=== PATIENT | male | born 1965 | race Caucasian/White ===

== ENCOUNTER 2019-07-24 15:09 | Inpatient (IN) | payer OTHER ==
--- NOTE | 2019-07-24 15:23 | PDOC ---
Rapid Medical Evaluation Chief Complaint: Chest Pain Time Seen by Provider: 07/24/19 15:16 Medical Evaluation: 07/24/19 15:19 Pt presents to ED: weak, sob, and cold, also with chest pressure, recent NM 2 weeks ago and aslo began HD after NM, hx anemia, denies bleeding in urine /stool , Received call from PMD and h/h 6.7 Pt on brief exam: pale appearing, vss Pt ordered for: labs, ekg, cxr, iv, cardiac monitoring Pt proceed to the ED Discharge Disposition - Diagnosis Weak - Referrals - Patient Instructions - Post Discharge Activity
--- NOTE | 2019-07-24 15:33 | PDOC ---
History of Present Illness - General Chief Complaint: Chest Pain Stated Complaint: CHEST PAIN, LOW H/H, DIALYSIS PT Time Seen by Provider: 07/24/19 15:16 History Source: Patient - History of Present Illness Initial Comments: 07/24/19 17:14 Mr. Woods is a 53M with hx T1DM, CKD on MWF dialysis, bilateral LE neuropathy , diabetic gastroparesis, recent hospitalization for ACS from 07/12-07/19/2019 presenting today with acute onset chest pain that began this morning, as well as referral from PCP Dr. Melchor after outpatient Hg resulted at 6.7. He reports that he recently moved from [place] and has been in the process of establishing medical care in the area. He reports that he recently started MWF dialysis after his recent hospitalization, and had access for dialysis placed during that hospitalization. His last dialysis was two days ago. He is scheduled for dialysis today, but was unable to present for dialysis due to his ED visit. Additionally, reports chest pain that began this morning upon awakening. He describes the pain as stabbing, non-pleuritic, intermittent, with varying severity from 3-7. He denies any shortness of breath, headache, weakness , confusion, lightheadedness, vertigo. Past History - Past Medical History Allergies/Adverse Reactions: Allergies Allergy/AdvReac Type Severity Reaction Status Date / Time No Known Allergies Allergy Verified 07/24/19 15:22 Home Medications: Ambulatory Orders Amlodipine Besylate 10 mg PO DAILY 07/24/19 Aspirin 81 mg PO DAILY 07/24/19 Bumetanide 2 mg PO DAILY 07/24/19 Calcitriol [Calcitriol -] 0.25 mcg PO 07/24/19 Carvedilol 12.5 mg PO BID 07/24/19 Clopidogrel Bisulfate [Clopidogrel] 75 mg PO DAILY 07/24/19 Famotidine 20 mg PO DAILY 07/24/19 Folic Acid 1 mg PO DAILY 07/24/19 Gabapentin 100 mg PO DAILY 07/24/19 Gabapentin 300 mg PO HS 07/24/19 Insulin Aspart [Novolog] 10 unit SQ HS 07/24/19 Insulin Regular, Human [Humulin R U-500 Kwikpen] unit SQ TID 07/24/19 Sodium Bicarbonate - 1,950 mg PO TID 07/24/19 Valsartan 160 mg PO DAILY 07/24/19 Anemia: Yes COPD: No CHF: No Diabetes: Yes (type 1) Dialysis: Yes (started 06/29) HTN: (Orthostatic hypotension) - Surgical History Abdominal Surgery: (right chest shiley) - Psycho Social/Smoking Cessation Hx Smoking History: Never smoked Information on smoking cessation initiated: No Hx Alcohol Use: No Drug/Substance Use Hx: No Review of Systems - Review of Systems Able to Perform ROS?: Yes Comments:: 07/25/19 07:49 ROS: GENERAL/CONSTITUTIONAL: No fever or chills. No weakness. HEAD, EYES, EARS, NOSE AND THROAT: No change in vision. No ear pain or discharge. No sore throat. CARDIOVASCULAR: Chest pain. No shortness of breath RESPIRATORY: No cough, wheezing, or hemoptysis. GASTROINTESTINAL: No nausea, vomiting, diarrhea or constipation. GENITOURINARY: No dysuria, frequency, or change in urination. MUSCULOSKELETAL: No joint or muscle swelling or pain. No neck or back pain. SKIN: No rash NEUROLOGIC: No headache, vertigo, loss of consciousness, or change in strength/ sensation. ENDOCRINE: No increased thirst. No abnormal weight change HEMATOLOGIC/LYMPHATIC: No anemia, easy bleeding, or history of blood clots. ALLERGIC/IMMUNOLOGIC: No hives or skin allergy. *Physical Exam - Vital Signs Last Vital Signs Temp Pulse Resp BP Pulse Ox 97.5 F L 79 19 156/86 97 07/24/19 15:18 07/24/19 15:18 07/24/19 15:18 07/24/19 15:18 07/24/19 15:18 - Physical Exam Comments: 07/25/19 07:48 PE: GENERAL: Pale. Awake, alert, and fully oriented, in no acute distress HEAD: No signs of trauma, normocephalic, atraumatic EYES: PERRLA, EOMI, sclera anicteric, conjunctiva clear ENT: Auricles normal inspection, hearing grossly normal, nares patent, oropharynx clear without exudates. Moist mucosa NECK: Normal ROM, supple, no lymphadenopathy, JVD, or masses LUNGS: No distress, speaks full sentences, clear to auscultation bilaterally HEART: Regular rate and rhythm, normal S1 and S2, no murmurs, rubs or gallops, peripheral pulses normal and equal bilaterally. ABDOMEN: Soft, nontender, normoactive bowel sounds. No guarding, no rebound. No masses EXTREMITIES : Normal inspection, Normal range of motion, no edema. No clubbing or cyanosis NEUROLOGICAL: Cranial nerves II through XII grossly intact. Normal speech, normal gait, no focal sensorimotor deficits SKIN: Warm, Dry, normal turgor, no rashes or lesions noted ED Treatment Course - LABORATORY CBC & Chemistry Diagram: 07/24/19 15:55 07/24/19 15:55 Medical Decision Making - Medical Decision Making 07/24/19 16:42 53M with hx T1DM, recent admission for ACS from 07/12-07/19/19 (no cardiac stenting at that time) p/w acute onset chest pain this AM, as well as referral from PCP Dr. Melchor after Hg found to be 6.7 during routine labs. Presentation likely representing anemia secondary to CKD. Cannot rule out ACS, type II NSTEMI at this time. Scheduled for MWF dialysis, unable to attend today due to presentation to hospital. Plan: CBC CMP EKG CXR Cardiac Profile PT/INR PTT ASA 325 mg POC glucose Dispo: Admit --- Case discussed with Dr. Dickens (Nephrology). Plan for dialysis tomorrow after hospital admission (likely not candidate for dialysis at this time with active chest pain). --- Hg - 9.5, no indication for emergent transfusion at this time --- Case discussed with CM Gomez, patient admitted to Dr. Melchor. Discharge - Discharge Information Problems reviewed: Yes Clinical Impression/Diagnosis: Weak Condition: Stable - Admission Yes - Follow up/Referral - Patient Discharge Instructions - Post Discharge Activity
[2019-07-24 16:15] LABS: BASO % 0.9 % (0-2.0); EOS % 1.9 % (0-4.5); HEMOGLOBIN 9.5 GM/dL (11.7-16.9); LYMPH % 5.8 % (8-40); MCH 30.3 pg (25.7-33.7); MCHC 32.9 g/dl (32.0-35.9); MEAN CELL VOLUME 92.2 fl (80-96); MEAN PLT VOLUME 7.8 fl (7.5-11.1); MONO % 10.2 % (3.8-10.2); NEUT % 81.2 % (42.8-82.8); PLATELET COUNT 269 K/MM3 (134-434); RBC 3.15 M/mm3 (4.00-5.60); RDW 14.2 % (11.9-15.9); WHITE BLOOD COUNT 5.3 K/mm3 (4.0-10.0)
--- NOTE | 2019-07-24 16:35 | PDOC ---
Attending Attestation - Resident Resident Name: Greg Henriquez - ED Attending Attestation I have performed the following: I have examined & evaluated the patient, The case was reviewed & discussed with the resident, I agree w/resident's findings & plan, Exceptions are as noted - HPI HPI: 07/24/19 16:32 53-year-old male history of end-stage renal disease diabetes recent [place] admitted a [facility] here today complaining of chest pain. Patient was scheduled to see Dr. Knight today for dialysis today however he was told that his hemoglobin was low was sent to the ED instead. Patient is describing chest pain denies feeling short of breath has had chronic lower extremity edema states he has a history of orthostatic hypotension denies any diaphoresis no fevers no chills no history of PE or DVT in the past - Physicial Exam PE: 07/24/19 16:33 awake alert no acute distress lungs are clear bilaterally heart is regular without murmurs rubs or gallops abdomen is soft and nontender extremities are warm well perfused the right anterior chest wall has a right tunneled catheter no surrounding erythema or redness 2+ symmetric pulses patient is awake alert and oriented x3 - Medical Decision Making 07/24/19 16:34 [id number] male diabetes CAD recent IN here with anemia and chest. Differential includes pericardial effusion symptomatic anemia GI bleed however more likely anemia of chronic disease due to renal failure plan we will discuss with Dr. Manriquez for admission patient is not currently fluid overloaded will likely be dialyzed tomorrow focused ED ultrasound was performed no pericardial effusion patient has overall preserved contractility no RV strain or dilation labs are pending patient signed out to oncoming physician pending further lab evaluation will likely be admitted to telemetry Heart Score/ECG Review #1 General ECG Interpretation: Sinus Rhythm, Normal Rate (83), Normal Intervals, No acute ischemic changes
[2019-07-24] MEDS ORDERED: ASPIRIN 325 MG TABLET PO ONE (16:41)
[2019-07-24 16:44] LABS: BILIRUBIN,TOTAL 0.2 mg/dL (0.2-1); BLOOD UREA NITROGEN 56.1 mg/dL (7-18); CREATININE 4.2 mg/dL (0.55-1.3); MAGNESIUM 2.6 mg/dL (1.8-2.4); POTASSIUM 5.2 mmol/L (3.5-5.1); TOT PROT 5.7 g/dl (6.4-8.2)
[2019-07-24] MEDS ORDERED: ASPIRIN 325 MG ENTERIC COATED TABLET (FP) ONE (16:54)
[2019-07-24 17:38] LABS: INR 0.97 (0.83-1.09); PROTHROMBIN TIME (PATIENT) 11.4 SEC (9.7-13.0)
[2019-07-24 18:39] LABS: EPI CELLS 1.1 /HPF (0-5/HPF); HYALINE CASTS 1 /lpf (0-8); URINE APPEARANCE CLEAR; URINE BACTERIA 0.3 /hpf (NEGATIVE); URINE BILIRUBIN NEGATIVE (NEGATIVE); URINE COLOR DK YELLOW; URINE GLUCOSE (UA) 2+ (NEGATIVE); URINE KETONE NEGATIVE (NEGATIVE); URINE LEUK ESTERASE NEGATIVE (NEGATIVE); URINE NITRITE NEGATIVE (NEGATIVE); URINE PROTEIN 3+ (NEGATIVE); URINE RBC 1 /hpf (0-4); URINE UROBILINOGEN 0.2 mg/dL (0.2-1.0); URINE WBC 1 /hpf (0-5)
[2019-07-24] MEDS: INSULIN SLIDING SCALE (NOVOLOG) 1 VIAL SQ SCH ×2 (20:30→22:22)
[2019-07-24] MEDS: GABAPENTIN 300 MG CAPSULE (FP) PO SCH (22:11)
[2019-07-24] MEDS: SODIUM BICARBONATE 650 MG TABLET PO SCH (22:11)
[2019-07-24] MEDS: CARVEDILOL 12.5 MG TABLET (FP) PO SCH (22:12)
[2019-07-24] MEDS: HEPARIN NA (PORCINE) 5,000 UNITS/ML 1ML VIAL SQ SCH (22:12)
[2019-07-25] MEDS: INSULIN SLIDING SCALE (NOVOLOG) 1 VIAL SQ SCH ×4 (06:08→21:42)
[2019-07-25] MEDS: SODIUM BICARBONATE 650 MG TABLET PO SCH (06:09)
[2019-07-25 08:09] LABS: BASO % 2.3 % (0-2.0); EOS % 6.9 % (0-4.5); HEMATOCRIT 22.5 % (35.4-49); HEMOGLOBIN 7.6 GM/dL (11.7-16.9); LYMPH % 15.7 % (8-40); MCH 30.8 pg (25.7-33.7); MCHC 33.8 g/dl (32.0-35.9); MEAN CELL VOLUME 91.1 fl (80-96); MEAN PLT VOLUME 8.3 fl (7.5-11.1); MONO % 15.9 % (3.8-10.2); NEUT % 59.2 % (42.8-82.8); PLATELET COUNT 201 K/MM3 (134-434); RBC 2.47 M/mm3 (4.00-5.60); WHITE BLOOD COUNT 3.7 K/mm3 (4.0-10.0)
[2019-07-25 09:24] LABS: ALBUMIN 2.5 g/dl (3.4-5.0); BILIRUBIN,TOTAL 0.3 mg/dL (0.2-1); BLOOD UREA NITROGEN 54.7 mg/dL (7-18); CALCIUM 8.1 mg/dL (8.5-10.1); CREATININE 4.2 mg/dL (0.55-1.3); MAGNESIUM 2.4 mg/dL (1.8-2.4); PHOSPHOROUS 6.2 mg/dL (2.5-4.9); TOT PROT 4.7 g/dl (6.4-8.2)
[2019-07-25] MEDS: amLODIPine BESYLATE 10 MG TABLET (FP) PO SCH (10:03)
[2019-07-25] MEDS: FAMOTIDINE 20 MG TABLET PO SCH (10:04)
[2019-07-25] MEDS: CLOPIDOGREL BISULFATE 75 MG TABLET (FP) PO SCH (10:04)
[2019-07-25] MEDS: ASPIRIN 81 MG CHEWABLE TABLETS PO SCH (10:04)
[2019-07-25] MEDS: FOLIC ACID 1 MG TABLET (FP) PO SCH (10:04)
[2019-07-25] MEDS: GABAPENTIN 100 MG CAPSULE (FP) PO SCH (10:04)
[2019-07-25] MEDS: VALSARTAN 160 MG TABLET (UD) PO SCH (10:04)
[2019-07-25] MEDS: HEPARIN NA (PORCINE) 5,000 UNITS/ML 1ML VIAL SQ SCH ×2 (10:04→21:34)
[2019-07-25] MEDS: CARVEDILOL 12.5 MG TABLET (FP) PO SCH ×2 (10:04→21:32)
--- NOTE | 2019-07-25 11:42 | CONSULT ---
Consult Consult Specialty:: Nephrology Reason for Consultation:: ESRD - History of Present Illness Chief Complaint: sent in for anemia and chest pain History of Present Illness: Pt is a 53 year old male with pmhx of esrd, anemia, and dm who was sent in for anemia. He was found to have a hg of about 7. He has ESRD and is on a MWF schedule. His last HD was on Monday. He is moving to [place] and is transitioning his care to here. He had an appointment with me yesterday however cancelled and came to ER. He says that the chest pain is resolved. He does not have a fistula. - History Source History Provided By: Patient, Medical Record - Past Medical History Cardio/Vascular: Yes: HTN Renal/: Yes: Renal Failure, Hemodialysis Endocrine: Yes: Diabetes Mellitus - Alcohol/Substance Use Hx Alcohol Use: No - Smoking History Smoking history: Never smoked Home Medications - Allergies Allergies/Adverse Reactions: Allergies Allergy/AdvReac Type Severity Reaction Status Date / Time No Known Allergies Allergy Verified 07/24/19 15:22 - Home Medications Home Medications: Ambulatory Orders Amlodipine Besylate 10 mg PO DAILY 07/24/19 Aspirin 81 mg PO DAILY 07/24/19 Bumetanide 2 mg PO DAILY 07/24/19 Calcitriol [Calcitriol -] 0.25 mcg PO 07/24/19 Carvedilol 12.5 mg PO BID 07/24/19 Clopidogrel Bisulfate [Clopidogrel] 75 mg PO DAILY 07/24/19 Famotidine 20 mg PO DAILY 07/24/19 Folic Acid 1 mg PO DAILY 07/24/19 Gabapentin 100 mg PO DAILY 07/24/19 Gabapentin 300 mg PO HS 07/24/19 Insulin Aspart [Novolog] 10 unit SQ HS 07/24/19 Insulin Regular, Human [Humulin R U-500 Kwikpen] unit SQ TID 07/24/19 Sodium Bicarbonate - 1,950 mg PO TID 07/24/19 Valsartan 160 mg PO DAILY 07/24/19 Family Medical History Family History: Denies Review of Systems - Review of Systems Constitutional: reports: No Symptoms Eyes: reports: No Symptoms HENT: reports: No Symptoms Neck: reports: No Symptoms Cardiovascular: reports: Chest Pain, Edema. denies: Shortness of Breath Respiratory: reports: No Symptoms Gastrointestinal: reports: No Symptoms Genitourinary: reports: No Symptoms Musculoskeletal: reports: No Symptoms Integumentary: reports: No Symptoms Neurological: reports: No Symptoms Endocrine: reports: No Symptoms Hematology/Lymphatic: reports: No Symptoms Psychiatric: reports: No Symptoms Physical Exam Vital Signs: Vital Signs Temperature 98.2 F 07/25/19 05:00 Pulse Rate 75 07/25/19 05:00 Respiratory Rate 18 07/25/19 05:00 Blood Pressure 163/85 07/25/19 05:00 O2 Sat by Pulse Oximetry (%) 96 07/24/19 23:00 Constitutional: Yes: Calm Eyes: Yes: Conjunctiva Clear HENT: Yes: Atraumatic Neck: Yes: Supple Cardiovascular: Yes: S1, S2 Respiratory: Yes: CTA Bilaterally Gastrointestinal: Yes: Soft Renal/: Yes: WNL Edema: Yes Edema: LLE: 2+, RLE: 2+ Neurological: Yes: Oriented Psychiatric: Yes: Oriented Labs: CBC, BMP 07/25/19 05:50 07/25/19 05:50 Laboratory Tests 07/24/19 07/25/19 15:55 05:50 Hgb 9.5 L 7.6 L Imaging - Results Chest X-ray: Report Reviewed Problem List - Problems (1) ESRD (end stage renal disease) Code(s): N18.6 - END STAGE RENAL DISEASE (2) Anemia Code(s): D64.9 - ANEMIA, UNSPECIFIED (3) Diabetes mellitus Code(s): E11.9 - TYPE 2 DIABETES MELLITUS WITHOUT COMPLICATIONS (4) HTN (hypertension) Code(s): I10 - ESSENTIAL (PRIMARY) HYPERTENSION Assessment/Plan Current Medications Generic Name Dose Route Start Last Admin Trade Name Jairo PRN Reason Stop Dose Admin Amlodipine Besylate 10 mg 07/25/19 10:00 07/25/19 10:03 Norvasc - PO 10 mg DAILY ELIZA Administration Aspirin 81 mg 07/25/19 10:00 07/25/19 10:04 Asa - PO 81 mg DAILY ELIZA Administration Carvedilol 12.5 mg 07/24/19 22:00 07/25/19 10:04 Coreg - PO 12.5 mg BID ELIZA Administration Clopidogrel Bisulfate 75 mg 07/25/19 10:00 07/25/19 10:04 Plavix - PO 75 mg DAILY ELIZA Administration Famotidine 20 mg 07/25/19 10:00 07/25/19 10:04 Pepcid - PO 20 mg DAILY ELIZA Administration Folic Acid 1 mg 07/25/19 10:00 07/25/19 10:04 Folic Acid - PO 1 mg DAILY ELIZA Administration Gabapentin 100 mg 07/25/19 10:00 07/25/19 10:04 Neurontin - PO 100 mg DAILY EILZA Administration Gabapentin 300 mg 07/24/19 22:00 07/24/19 22:11 Neurontin - PO 300 mg HS ELIZA Administration Heparin Sodium (Porcine) 5,000 unit 07/24/19 22:00 07/25/19 10:04 Heparin - SQ 5,000 unit BID ELIZA Administration Sodium Chloride 250 mls @ 3,000 mls/hr 07/25/19 11:40 Normal Saline - IV 07/26/19 11:40 PRN PRN Hypotension during Dialysis Insulin Aspart 1 vial 07/24/19 22:00 07/25/19 06:08 Novolog Vial Sliding Scale - SQ Not Given ACHS ELIZA Protocol Sodium Bicarbonate 1,950 mg 07/24/19 22:00 07/25/19 06:09 Sodium Bicarbonate - PO 1,950 mg TID ELIZA Administration Valsartan 160 mg 07/25/19 10:00 07/25/19 10:04 Diovan - PO 160 mg DAILY ELIZA Administration Impression 1. ESRD 2. anemia 3. chest pain 4. htn 5. dm 6. hyperkalemia Plan - will arrange for HD today - will give unit fo blood - discussed epogen therapy however he wants to think about it - renal diet - d/c po bicarb
--- NOTE | 2019-07-25 12:39 | EKG ---
Test Reason : Blood Pressure : / mmHG Vent. Rate : 083 BPM Atrial Rate : 083 BPM P-R Int : 170 ms QRS Dur : 098 ms QT Int : 402 ms P-R-T Axes : 068 044 038 degrees QTc Int : 472 ms NORMAL SINUS RHYTHM POSSIBLE LEFT ATRIAL ENLARGEMENT BORDERLINE ECG NO PREVIOUS ECGS AVAILABLE Confirmed by HONEY WATKINS, THONG ([id number]) on 07/25/2019 12:39:16 PM Referred By: Confirmed By:THONG MÉNDEZ MD
--- NOTE | 2019-07-25 13:57 | CON.CARD ---
Consult Consult Specialty:: Cardiology Referred by:: Jill Reason for Consultation:: chest pain - History of Present Illness Chief Complaint: Chest pain History of Present Illness: The patient is a 53-year-old man type 1 diabetes, hypertension, end-stage renal disease on hemodialysis (recently began),coronary artery disease and myocardial infarction (no cardiac catheterization due torenalfailure0, now presenting with recurrent chest pains, fluid overload, and severe anemia. The patient is currently comfortable and symptom free. No evidence of ischemia nor acute coronary syndrome. the ECG shows sinus rhythm with an old septal infarct and left atrial enlargement with nonspecific ST-T changes. - History Source History Provided By: Patient Limitations to Obtaining History: No Limitations - Past Medical History Cardio/Vascular: Yes: CAD, HTN, [place] Renal/: Yes: Renal Failure, Hemodialysis Endocrine: Yes: Diabetes Mellitus - Alcohol/Substance Use Hx Alcohol Use: No - Smoking History Smoking history: Never smoked Home Medications - Allergies Allergies/Adverse Reactions: Allergies Allergy/AdvReac Type Severity Reaction Status Date / Time No Known Allergies Allergy Verified 07/24/19 15:22 - Home Medications Home Medications: Ambulatory Orders Amlodipine Besylate 10 mg PO DAILY 07/24/19 Aspirin 81 mg PO DAILY 07/24/19 Bumetanide 2 mg PO DAILY 07/24/19 Calcitriol [Calcitriol -] 0.25 mcg PO 07/24/19 Carvedilol 12.5 mg PO BID 07/24/19 Clopidogrel Bisulfate [Clopidogrel] 75 mg PO DAILY 07/24/19 Famotidine 20 mg PO DAILY 07/24/19 Folic Acid 1 mg PO DAILY 07/24/19 Gabapentin 100 mg PO DAILY 07/24/19 Gabapentin 300 mg PO HS 07/24/19 Insulin Aspart [Novolog] 10 unit SQ HS 07/24/19 Insulin Regular, Human [Humulin R U-500 Kwikpen] unit SQ TID 07/24/19 Sodium Bicarbonate - 1,950 mg PO TID 07/24/19 Valsartan 160 mg PO DAILY 07/24/19 Review of Systems - Review of Systems Constitutional: reports: No Symptoms Eyes: reports: No Symptoms HENT: reports: No Symptoms Neck: reports: No Symptoms Cardiovascular: reports: Chest Pain, Edema Respiratory: reports: No Symptoms Gastrointestinal: reports: No Symptoms Genitourinary: reports: No Symptoms Breasts: reports: No Symptoms Reported Musculoskeletal: reports: No Symptoms Integumentary: reports: No Symptoms Neurological: reports: No Symptoms Endocrine: reports: No Symptoms Hematology/Lymphatic: reports: No Symptoms Psychiatric: reports: No Symptoms Vital Signs: Vital Signs Temperature 98.2 F 07/25/19 05:00 Pulse Rate 75 07/25/19 05:00 Respiratory Rate 18 07/25/19 05:00 Blood Pressure 163/85 07/25/19 05:00 O2 Sat by Pulse Oximetry (%) 96 07/24/19 23:00 Constitutional: Yes: Well Nourished, No Distress, Calm Eyes: Yes: WNL, Conjunctiva Clear, EOM Intact HENT: Yes: WNL, Atraumatic, Normocephalic Neck: Yes: WNL, Supple, Trachea Midline Respiratory: Yes: WNL, Regular, CTA Bilaterally Gastrointestinal: Yes: WNL, Normal Bowel Sounds, Soft Renal/: Yes: Anuria Cardiovascular: Yes: WNL, Regular Rate and Rhythm JVD: No Carotid Bruit: No PMI: Non-Displaced Heart Sounds: Yes: S1, S2 Murmur: Yes: Systolic Murmur, Grade 2 Musculoskeletal: Yes: WNL Extremities: Yes: WNL Edema: Yes Edema: LLE: 1+, RLE: 1+ Peripheral Pulses: 1+ Left Carotid, 1+ Right Carotid, 1+ Left Femoral, 1+ Right Femoral, 1+ Left Popliteal, 1+ Right Popliteal, 1+ Left Doralis Pedis, 1+ Right Dorsalis Pedis Integumentary: Yes: WNL Neurological: Yes: WNL, Alert, Oriented ...Motor Strength: WNL Psychiatric: Yes: WNL, Alert, Oriented - Other Data Labs, Other Data: CBC, BMP 07/25/19 05:50 07/25/19 05:50 INR, PTT INR 0.97 (0.83-1.09) 07/24/19 15:55 Troponin, BNP 07/24/19 07/25/19 15:55 05:50 Troponin I 0.04 0.04 Troponin, BNP 07/24/19 07/25/19 15:55 05:50 Troponin I 0.04 0.04 Assessment/Plan The patient is a 53-year-old man type 1 diabetes, hypertension, end-stage renal disease on hemodialysis (recently began),coronary artery disease and myocardial infarction (no cardiac catheterization due torenalfailure0, now presenting with recurrent chest pains, fluid overload, and severe anemia. The patient is currently comfortable and symptom free. No evidence of ischemia nor acute coronary syndrome. the ECG shows sinus rhythm with an old septal infarct and left atrial enlargement with nonspecific ST-T changes. please continue fluid removal with hemodialysis. Renal diet. Continue current regimen for the time being. Please arrange for an echocardiogram. [facility]. The patient is stable.
--- NOTE | 2019-07-25 15:02 | HP ---
Admitting History and Physical - Admission Chief Complaint: chest pain History of Present Illness: Mr. Woods is a 53M with hx T1DM, CKD on MWF dialysis, bilateral LE neuropathy , diabetic gastroparesis, recent hospitalization for ACS from 07/12-07/19/2019 presenting today with acute onset chest pain that began this morning, as well as referral from PCP Dr. Melchor after outpatient Hg resulted at 6.7. He reports that he recently moved from [place] and has been in the process of establishing medical care in the area. He reports that he recently started MWF dialysis after his recent hospitalization, and had access for dialysis placed during that hospitalization. His last dialysis was two days ago. He is scheduled for dialysis today, but was unable to present for dialysis due to his ED visit. Additionally, reports chest pain that began this morning upon awakening. He describes the pain as stabbing, non-pleuritic, intermittent, with varying severity from 3-7. He denies any shortness of breath, headache, weakness , confusion, lightheadedness, vertigo. patient currently chest pain free History Source: Patient, Medical Record - Past Medical History Cardiovascular: Yes: CAD, HTN, [place] Renal/: Yes: Renal Failure, Hemodialysis Endocrine: Yes: Diabetes Mellitus - Advance Directives Advance Directives: Yes: DNR - Smoking History Smoking history: Never smoked - Alcohol/Substance Use Hx Alcohol Use: No Home Medications - Allergies Allergies/Adverse Reactions: Allergies Allergy/AdvReac Type Severity Reaction Status Date / Time No Known Allergies Allergy Verified 07/24/19 15:22 - Home Medications Home Medications: Ambulatory Orders Amlodipine Besylate 10 mg PO DAILY 07/24/19 Aspirin 81 mg PO DAILY 07/24/19 Bumetanide 2 mg PO DAILY 07/24/19 Calcitriol [Calcitriol -] 0.25 mcg PO 07/24/19 Carvedilol 12.5 mg PO BID 07/24/19 Clopidogrel Bisulfate [Clopidogrel] 75 mg PO DAILY 07/24/19 Famotidine 20 mg PO DAILY 07/24/19 Folic Acid 1 mg PO DAILY 07/24/19 Gabapentin 100 mg PO DAILY 07/24/19 Gabapentin 300 mg PO HS 07/24/19 Insulin Aspart [Novolog] 10 unit SQ HS 07/24/19 Insulin Regular, Human [Humulin R U-500 Kwikpen] unit SQ TID 07/24/19 Sodium Bicarbonate - 1,950 mg PO TID 07/24/19 Valsartan 160 mg PO DAILY 07/24/19 Review of Systems - Review of Systems Cardiovascular: reports: No Symptoms Respiratory: reports: No Symptoms Gastrointestinal: reports: No Symptoms Genitourinary: reports: No Symptoms Physical Examination Vital Signs: Vital Signs Temperature 98.2 F 07/25/19 05:00 Pulse Rate 75 07/25/19 05:00 Respiratory Rate 18 07/25/19 05:00 Blood Pressure 163/85 07/25/19 05:00 O2 Sat by Pulse Oximetry (%) 96 07/24/19 23:00 Constitutional: Yes: Calm Cardiovascular: Yes: Regular Rate and Rhythm, S1, S2 Respiratory: Yes: CTA Bilaterally Gastrointestinal: Yes: Normal Bowel Sounds, Soft Labs: CBC, BMP 07/25/19 05:50 07/25/19 05:50 Problem List - Problems (1) Anemia Assessment/Plan: got one unit with HD today repeat cbc in AM epogen once patient agree to it Code(s): D64.9 - ANEMIA, UNSPECIFIED (2) Diabetes mellitus Assessment/Plan: bgm sliding scale uncontrolled DM endocrine conosult willl need levemier Code(s): E11.9 - TYPE 2 DIABETES MELLITUS WITHOUT COMPLICATIONS (3) ESRD (end stage renal disease) Assessment/Plan: HD per renal Code(s): N18.6 - END STAGE RENAL DISEASE (4) HTN (hypertension) Assessment/Plan: coreg and norvasc Code(s): I10 - ESSENTIAL (PRIMARY) HYPERTENSION (5) Chest pain Assessment/Plan: to get echo today and cardiac cath next week at [facility] cardiology on board Code(s): R07.9 - CHEST PAIN, UNSPECIFIED
[2019-07-25] MEDS ORDERED: SODIUM CHLORIDE 250 ML IV PRN (16:03)
--- NOTE | 2019-07-25 16:11 | CONSULT ---
Consultation: REQUESTING PROVIDER: HEME/ONC Service CONSULT REQUEST: We have been asked to medically evaluate this patient for anemia. HISTORY OF PRESENT ILLNESS: Pt is a 53 y/o M with PMH DM I, CKD on MWF dialysis, bilateral LE neuropathy, diabetic gastroparesis, recent hospitalization for ACS from 07/12-07/19/2019 who presented to ED yesterday sent from PCP for low Hb of 6.2. Pt states that he was experiencing chest pain yesterday. He states that he had a repetitive stabbing chest pain, which was drammatically different in character from the pressure-like sensation he had when he had his heart attack several weeks ago. He states that at that time he was seen at a hospital in [place] where he could not undergo cardiac cath due to his deteriorating kidney function. He states that he was therefore treated medically and was put on dialysis. At this time he has no chest pain or pressure. Pt states he has a history of anemia. He states his Hb is usually around 8 or 9. 2 days ago, he had lab work done at his doctor's office. Yesterday, he was at the eye doctor and received a phone call stating his Hb was 6.2 and that he should come to the emergency department. Of note, in ED, initial Hb was 9.5 and f/u was 7.5. Denies gross bleeding or trauma of any kind. Denies dark/bloody stools or blood in urine. No rashes. REVIEW OF SYSTEMS: CONSTITUTIONAL: Absent: fever, chills, diaphoresis, generalized weakness, malaise, loss of appetite, weight change HEENT: Absent: rhinorrhea, nasal congestion, throat pain, throat swelling, difficulty swallowing, mouth swelling, ear pain, eye pain, visual changes CARDIOVASCULAR: chest pain, peripheral edema Absent: , syncope, palpitations, irregular heart rate, lightheadedness RESPIRATORY: Absent: cough, shortness of breath, dyspnea with exertion, orthopnea, wheezing, stridor, hemoptysis GASTROINTESTINAL: Absent: abdominal pain, abdominal distension, nausea, vomiting, diarrhea, constipation, melena, hematochezia GENITOURINARY: Absent: dysuria, frequency, urgency, hesitancy, hematuria, flank pain, genital pain MUSCULOSKELETAL: Absent: myalgia, arthralgia, joint swelling, back pain, neck pain SKIN: Absent: rash, itching, pallor HEMATOLOGIC/IMMUNOLOGIC: Absent: easy bleeding, easy bruising, lymphadenopathy, frequent infections ENDOCRINE: Absent: unexplained weight gain, unexplained weight loss, heat intolerance, cold intolerance NEUROLOGIC: Absent: headache, focal weakness or paresthesias, dizziness, unsteady gait, seizure, mental status changes, bladder or bowel incontinence PSYCHIATRIC: Absent: anxiety, depression, suicidal or homicidal ideation, hallucinations. PHYSICAL EXAMINATION Vital Signs - 24 hr 07/24/19 07/24/19 07/24/19 17:36 19:31 21:00 Temperature 97.9 F 97.9 F Pulse Rate 86 Pulse Rate [ 84 Apical] Respiratory 20 18 18 Rate Blood Pressure 184/107 H Blood Pressure 183/83 H [Left Arm] O2 Sat by Pulse 98 99 Oximetry (%) 07/24/19 07/24/19 07/25/19 21:12 23:00 01:00 Temperature 98.4 F 97.9 F Pulse Rate 81 89 Pulse Rate [ Apical] Respiratory 18 18 18 Rate Blood Pressure 161/80 148/66 Blood Pressure [Left Arm] O2 Sat by Pulse 96 Oximetry (%) 07/25/19 07/25/19 07/25/19 05:00 10:00 15:03 Temperature 98.2 F 98.3 F 98 F Pulse Rate 75 82 76 Pulse Rate [ Apical] Respiratory 18 18 16 Rate Blood Pressure 163/85 154/77 147/74 Blood Pressure [Left Arm] O2 Sat by Pulse 97 Oximetry (%) Gen: AAOx3, NAD HEENT: NCAT, EOMI Neck: supple, no jvd, no bruits Cardio: rrr, normal s1s2, no mrg Pulm: cta b/l Abd: soft, nontender, nondistended Ext: 2+ pitting edema Laboratory Results - last 24 hr 07/24/19 07/24/19 07/24/19 10:50 15:55 15:55 WBC RBC Hgb Hct MCV MCH MCHC RDW Plt Count MPV Absolute Neuts (auto) Neutrophils % Lymphocytes % Monocytes % Eosinophils % Basophils % Nucleated RBC % PT with INR INR PTT (Actin FS) Sodium Potassium Chloride Carbon Dioxide Anion Gap BUN Creatinine Est GFR (CKD-EPI)AfAm Est GFR (CKD-EPI)NonAf POC Glucometer Random Glucose Hemoglobin A1c % Calcium Phosphorus Magnesium Total Bilirubin AST ALT Alkaline Phosphatase Creatine Kinase 141 Troponin I 0.04 Total Protein Albumin Triglycerides Cholesterol Total LDL Cholesterol HDL Cholesterol Urine Color Urine Appearance Urine pH Ur Specific [place] Urine Protein Urine Glucose (UA) Urine Ketones Urine Blood Urine Nitrite Urine Bilirubin Urine Urobilinogen Ur Leukocyte Esterase Urine WBC (Auto) Urine RBC (Auto) Urine Casts (Auto) U Epithel Cells (Auto) Urine Bacteria (Auto) Stool Occult Blood Negative Blood Type O POSITIVE Antibody Screen Negative Crossmatch See Detail 07/24/19 07/24/19 07/24/19 15:55 15:55 15:55 WBC 5.3 RBC 3.15 L Hgb 9.5 L Hct 29.0 L MCV 92.2 MCH 30.3 MCHC 32.9 RDW 14.2 Plt Count 269 MPV 7.8 Absolute Neuts (auto) 4.3 Neutrophils % 81.2 Lymphocytes % 5.8 L Monocytes % 10.2 Eosinophils % 1.9 Basophils % 0.9 Nucleated RBC % 0 PT with INR 11.40 INR 0.97 PTT (Actin FS) 37.0 H Sodium 137 Potassium 5.2 H Chloride 99 Carbon Dioxide 32 Anion Gap 6 L BUN 56.1 H Creatinine 4.2 H Est GFR (CKD-EPI)AfAm 17.25 Est GFR (CKD-EPI)NonAf 14.88 POC Glucometer Random Glucose 234 H Hemoglobin A1c % Calcium 9.0 Phosphorus Magnesium 2.6 H Total Bilirubin 0.2 AST 26 ALT 28 Alkaline Phosphatase 71 Creatine Kinase Troponin I Total Protein 5.7 L Albumin 3.0 L Triglycerides Cholesterol Total LDL Cholesterol HDL Cholesterol Urine Color Urine Appearance Urine pH Ur Specific [place] Urine Protein Urine Glucose (UA) Urine Ketones Urine Blood Urine Nitrite Urine Bilirubin Urine Urobilinogen Ur Leukocyte Esterase Urine WBC (Auto) Urine RBC (Auto) Urine Casts (Auto) U Epithel Cells (Auto) Urine Bacteria (Auto) Stool Occult Blood Blood Type Antibody Screen Crossmatch 07/24/19 07/24/19 07/24/19 18:00 20:03 20:30 WBC RBC Hgb Hct MCV MCH MCHC RDW Plt Count MPV Absolute Neuts (auto) Neutrophils % Lymphocytes % Monocytes % Eosinophils % Basophils % Nucleated RBC % PT with INR INR PTT (Actin FS) Sodium Potassium Chloride Carbon Dioxide Anion Gap BUN Creatinine Est GFR (CKD-EPI)AfAm Est GFR (CKD-EPI)NonAf POC Glucometer 437 Random Glucose Hemoglobin A1c % Calcium Phosphorus Magnesium Total Bilirubin AST ALT Alkaline Phosphatase Creatine Kinase Troponin I Total Protein Albumin Triglycerides Cholesterol Total LDL Cholesterol HDL Cholesterol Urine Color Dk yellow Urine Appearance Clear Urine pH 8.0 Ur Specific [place] 1.014 Urine Protein 3+ H Urine Glucose (UA) 2+ H Urine Ketones Negative Urine Blood Negative Urine Nitrite Negative Urine Bilirubin Negative Urine Urobilinogen 0.2 Ur Leukocyte Esterase Negative Urine WBC (Auto) 1 Urine RBC (Auto) 1 Urine Casts (Auto) 1 U Epithel Cells (Auto) 1.1 Urine Bacteria (Auto) 0.3 Stool Occult Blood Blood Type O POSITIVE Antibody Screen Crossmatch 07/24/19 07/24/19 07/25/19 21:21 22:08 05:50 WBC 3.7 L RBC 2.47 L Hgb 7.6 L Hct 22.5 L D MCV 91.1 MCH 30.8 MCHC 33.8 RDW 14.0 Plt Count 201 D MPV 8.3 Absolute Neuts (auto) 2.2 Neutrophils % 59.2 D Lymphocytes % 15.7 D Monocytes % 15.9 H Eosinophils % 6.9 H D Basophils % 2.3 H Nucleated RBC % 0 PT with INR INR PTT (Actin FS) Sodium Potassium Chloride Carbon Dioxide Anion Gap BUN Creatinine Est GFR (CKD-EPI)AfAm Est GFR (CKD-EPI)NonAf POC Glucometer 363 319 Random Glucose Hemoglobin A1c % Calcium Phosphorus Magnesium Total Bilirubin AST ALT Alkaline Phosphatase Creatine Kinase Troponin I Total Protein Albumin Triglycerides Cholesterol Total LDL Cholesterol HDL Cholesterol Urine Color Urine Appearance Urine pH Ur Specific [place] Urine Protein Urine Glucose (UA) Urine Ketones Urine Blood Urine Nitrite Urine Bilirubin Urine Urobilinogen Ur Leukocyte Esterase Urine WBC (Auto) Urine RBC (Auto) Urine Casts (Auto) U Epithel Cells (Auto) Urine Bacteria (Auto) Stool Occult Blood Blood Type Antibody Screen Crossmatch 07/25/19 07/25/19 07/25/19 05:50 05:50 05:54 WBC RBC Hgb Hct MCV MCH MCHC RDW Plt Count MPV Absolute Neuts (auto) Neutrophils % Lymphocytes % Monocytes % Eosinophils % Basophils % Nucleated RBC % PT with INR INR PTT (Actin FS) Sodium 137 Potassium 5.0 Chloride 100 Carbon Dioxide 31 Anion Gap 6 L BUN 54.7 H Creatinine 4.2 H Est GFR (CKD-EPI)AfAm 17.25 Est GFR (CKD-EPI)NonAf 14.88 POC Glucometer 90 Random Glucose 85 Hemoglobin A1c % 10.6 H Calcium 8.1 L Phosphorus 6.2 H Magnesium 2.4 Total Bilirubin 0.3 AST 23 ALT 25 Alkaline Phosphatase 56 Creatine Kinase 78 Troponin I 0.04 Total Protein 4.7 L Albumin 2.5 L Triglycerides 48 Cholesterol 178 Total LDL Cholesterol 76 HDL Cholesterol 93 H Urine Color Urine Appearance Urine pH Ur Specific [place] Urine Protein Urine Glucose (UA) Urine Ketones Urine Blood Urine Nitrite Urine Bilirubin Urine Urobilinogen Ur Leukocyte Esterase Urine WBC (Auto) Urine RBC (Auto) Urine Casts (Auto) U Epithel Cells (Auto) Urine Bacteria (Auto) Stool Occult Blood Blood Type Antibody Screen Crossmatch 07/25/19 07/25/19 08:14 12:32 WBC RBC Hgb Hct MCV MCH MCHC RDW Plt Count MPV Absolute Neuts (auto) Neutrophils % Lymphocytes % Monocytes % Eosinophils % Basophils % Nucleated RBC % PT with INR INR PTT (Actin FS) Sodium Potassium Chloride Carbon Dioxide Anion Gap BUN Creatinine Est GFR (CKD-EPI)AfAm Est GFR (CKD-EPI)NonAf POC Glucometer 134 158 Random Glucose Hemoglobin A1c % Calcium Phosphorus Magnesium Total Bilirubin AST ALT Alkaline Phosphatase Creatine Kinase Troponin I Total Protein Albumin Triglycerides Cholesterol Total LDL Cholesterol HDL Cholesterol Urine Color Urine Appearance Urine pH Ur Specific [place] Urine Protein Urine Glucose (UA) Urine Ketones Urine Blood Urine Nitrite Urine Bilirubin Urine Urobilinogen Ur Leukocyte Esterase Urine WBC (Auto) Urine RBC (Auto) Urine Casts (Auto) U Epithel Cells (Auto) Urine Bacteria (Auto) Stool Occult Blood Blood Type Antibody Screen Crossmatch Active Medications Generic Name Dose Route Start Last Admin Trade Name Freq PRN Reason Stop Dose Admin Amlodipine Besylate 10 mg 07/25/19 10:00 07/25/19 10:03 Norvasc - PO 10 mg DAILY ELIZA Administration Aspirin 81 mg 07/25/19 10:00 07/25/19 10:04 Asa - PO 81 mg DAILY ELIZA Administration Carvedilol 12.5 mg 07/24/19 22:00 07/25/19 10:04 Coreg - PO 12.5 mg BID ELIZA Administration Clopidogrel Bisulfate 75 mg 07/25/19 10:00 07/25/19 10:04 Plavix - PO 75 mg DAILY ELIZA Administration Famotidine 20 mg 07/25/19 10:00 07/25/19 10:04 Pepcid - PO 20 mg DAILY ELIZA Administration Folic Acid 1 mg 07/25/19 10:00 07/25/19 10:04 Folic Acid - PO 1 mg DAILY ELIZA Administration Gabapentin 100 mg 07/25/19 10:00 07/25/19 10:04 Neurontin - PO 100 mg DAILY ELIZA Administration Gabapentin 300 mg 07/24/19 22:00 07/24/19 22:11 Neurontin - PO 300 mg HS ELIZA Administration Heparin Sodium (Porcine) 5,000 unit 07/24/19 22:00 07/25/19 10:04 Heparin - SQ 5,000 unit BID ELIZA Administration Sodium Chloride 250 mls @ 3,000 mls/hr 07/25/19 11:40 Normal Saline - IV 07/26/19 11:40 PRN PRN Hypotension during Dialysis Insulin Aspart 1 vial 07/24/19 22:00 07/25/19 12:58 Novolog Vial Sliding Scale - SQ 6 units ACHS ELIZA Administration Protocol Valsartan 160 mg 07/25/19 10:00 07/25/19 10:04 Diovan - PO 160 mg DAILY ELIZA Administration ASSESSMENT/PLAN: Pt is a 53 y/o M with PMH DM I, CKD on MWF dialysis, bilateral LE neuropathy, diabetic gastroparesis, recent hospitalization for ACS from 07/12-07/19/2019 who presented to ED yesterday sent from PCP for low Hb of 6.2. Heme/Onc was called for anemia. Normocytic, Normochromic anemia -acute drop in Hb raises concern for profuse bleeding, however this is inconsistent with the patient's story -? erroneous lab result vs outlier. Now appears to be at his typical baseline prior to receiving any blood -known history of CKD and anemia -likely anemia of chronic disease -monitor cbc. Transfuse to Hb of 7 -will order anemia workup. Retic, fe, TIBC, Ferritin, B12, Folate Dispo: We will continue to follow the patient. Thank you for this consultative opportunity. Visit type - Emergency Visit Emergency Visit: No - New Patient This patient is new to me today: Yes Date on this admission: 07/25/19 - Critical Care Critical Care patient: No ATTENDING PHYSICIAN STATEMENT I saw and evaluated the patient. I reviewed the resident's note and discussed the case with the resident. I agree with the resident's findings and plan as documented. SUBJECTIVE: OBJECTIVE: ASSESSMENT AND PLAN:
[2019-07-25] MEDS ORDERED: hydrALAZINE HCL 25 MG TABLET (FP) PO ONE (18:11)
[2019-07-25] MEDS: GABAPENTIN 300 MG CAPSULE (FP) PO SCH (21:32)
[2019-07-26] MEDS: INSULIN SLIDING SCALE (NOVOLOG) 1 VIAL SQ SCH ×3 (06:17→17:27)
[2019-07-26 06:36] LABS: BASO % 1.9 % (0-2.0); EOS % 7.3 % (0-4.5); HEMATOCRIT 27.8 % (35.4-49); HEMOGLOBIN 9.5 GM/dL (11.7-16.9); LYMPH % 17.4 % (8-40); MCH 30.7 pg (25.7-33.7); MCHC 34.1 g/dl (32.0-35.9); MEAN CELL VOLUME 90.3 fl (80-96); MONO % 14.9 % (3.8-10.2); NEUT % 58.5 % (42.8-82.8); PLATELET COUNT 198 K/MM3 (134-434); RBC 3.08 M/mm3 (4.00-5.60); RDW 14.3 % (11.9-15.9); WHITE BLOOD COUNT 3.3 K/mm3 (4.0-10.0)
--- NOTE | 2019-07-26 06:39 | PN ---
Teaching Attending Note Name of Resident: Pete Burks ATTENDING PHYSICIAN STATEMENT I saw and evaluated the patient. I reviewed the resident's note and discussed the case with the resident. I agree with the resident's findings and plan as documented. ASSESSMENT AND PLAN: 53M with hx T1DM, CKD on MWF dialysis, bilateral LE neuropathy, diabetic gastroparesis, recent hospitalization for ACS from 07/12-07/19/2019 presenting today with acute onset chest pain and anemia of 6.7. He reports that he recently started MWF dialysis after his recent hospitalization, and had access for dialysis placed during that hospitalization. Anemia of chronic disease r/o gi losses On asa/plavix check iron studies/ferritin and replete iv iron per ESRD guidelines reports EGD/colonoscopy 1 yr. ago --gi f/u ? procrit
[2019-07-26] MEDS ORDERED: SODIUM CHLORIDE 250 ML IV PRN (09:07)
[2019-07-26] MEDS: HEPARIN NA (PORCINE) 5,000 UNITS/ML 1ML VIAL SQ SCH (09:57)
[2019-07-26] MEDS: CLOPIDOGREL BISULFATE 75 MG TABLET (FP) PO SCH (09:58)
[2019-07-26] MEDS: CARVEDILOL 12.5 MG TABLET (FP) PO SCH (09:58)
[2019-07-26] MEDS: GABAPENTIN 100 MG CAPSULE (FP) PO SCH (09:58)
[2019-07-26] MEDS: FAMOTIDINE 20 MG TABLET PO SCH (09:58)
[2019-07-26] MEDS: VALSARTAN 160 MG TABLET (UD) PO SCH (09:58)
[2019-07-26] MEDS: amLODIPine BESYLATE 10 MG TABLET (FP) PO SCH (09:58)
[2019-07-26] MEDS: FOLIC ACID 1 MG TABLET (FP) PO SCH (09:58)
[2019-07-26] MEDS: ASPIRIN 81 MG CHEWABLE TABLETS PO SCH (09:58)
--- NOTE | 2019-07-26 11:01 | ECHO ---
Name: CARI SCHOFIELD Exam:Adult Echocardiogram Study Date: 07/26/2019 08:30 AM Age: 53 yrs Reason For Study: look for ejection fraction Height: 66 in Weight: 175 lb BSA: 1.9 m2 MMode/2D Measurements & Calculations IVSd: 1.2 cm Ao root diam: 3.2 cm LVIDd: 4.2 cm LA dimension: 3.1 cm LVIDs: 3.0 cm LVPWd: 1.5 cm LVPWs: 1.8 cm EDV(Teich): 77.4 ml ESV(Teich): 35.0 ml LVOT diam: 2.5 cm LAV (MOD-bp): 54.0 ml Doppler Measurements & Calculations MV E max hever: 95.8 cm/sec Ao V2 max: 119.1 cm/sec MV A max hever: 71.1 cm/sec Ao max P.7 mmHg MV E/A: 1.3 MV dec time: 0.10 sec GELA(V,D): 3.7 cm2 LV V1 max P.3 mmHg MR max hever: 734.8 cm/sec LV V1 max: 90.8 cm/sec MR max P.0 mmHg PA V2 max: 101.1 cm/sec Med Peak E' Hever: 3.8 cm/sec PA max P.1 mmHg Med E/e': 24.9 Lat Peak E' Hever: 7.1 cm/sec Lat E/e': 13.4 Left Ventricle There is moderate concentric left ventricular hypertrophy. Left ventricular systolic function is norm al. Ejection Fraction = 55-60%. Left Ventricular Filling pattern is normal for age. Right Ventricle The right ventricle is normal in size and function. Atria Normal left and right atrial size and function. Mitral Valve There is mild mitral valve thickening. There is no mitral valve stenosis. There is mild mitral regurg itation. Tricuspid Valve The tricuspid valve is normal in structure and function. There is Trace to mild tricuspid regurgitati on. Aortic Valve Moderate focal/nodular calcification of the aortic valve. No hemodynamically significant valvular aor tic stenosis. No aortic regurgitation is present. Pulmonic Valve The pulmonic valve is not well seen, but is grossly normal. There is no pulmonic valvular stenosis. M ild pulmonic valvular regurgitation. Great Vessels The aortic root is normal size. Pericardium/Pleura There is no pericardial effusion. Interpretation Summary There is moderate concentric left ventricular hypertrophy. Left ventricular systolic function is normal. Ejection Fraction = 55-60%. There is mild mitral valve thickening. There is mild mitral regurgitation. Moderate focal/nodular calcification of the aortic valve. There is no pericardial effusion. MD Valadez *Cooper 07/26/2019 11:00 AM
[2019-07-26 11:39] LABS: ALBUMIN 2.7 g/dl (3.4-5.0); BILIRUBIN,TOTAL 0.5 mg/dL (0.2-1); BLOOD UREA NITROGEN 28.8 mg/dL (7-18); CALCIUM 8.5 mg/dL (8.5-10.1); TOT PROT 5.2 g/dl (6.4-8.2)
--- NOTE | 2019-07-26 13:07 | PN ---
Progress Note, Physician Chief Complaint: chest pain History of Present Illness: The patient is a 53-year-old man type 1 diabetes, hypertension, end-stage renal disease on hemodialysis (recently began),coronary artery disease and myocardial infarction (no cardiac catheterization due torenalfailure0, now presenting with recurrent chest pains, fluid overload, and severe anemia. The patient is currently comfortable and symptom free. No evidence of ischemia nor acute coronary syndrome. the ECG shows sinus rhythm with an old septal infarct and left atrial enlargement with nonspecific ST-T changes. - Current Medication List Current Medications: Active Medications Amlodipine Besylate (Norvasc -) 10 mg PO DAILY COUNT INCLUDES THE [facility] Last Admin: 07/26/19 09:58 Dose: 10 mg Aspirin (Asa -) 81 mg PO DAILY COUNT INCLUDES THE [facility] Last Admin: 07/26/19 09:58 Dose: 81 mg Carvedilol (Coreg -) 12.5 mg PO BID COUNT INCLUDES THE [facility] Last Admin: 07/26/19 09:58 Dose: 12.5 mg Clopidogrel Bisulfate (Plavix -) 75 mg PO DAILY COUNT INCLUDES THE [facility] Last Admin: 07/26/19 09:58 Dose: 75 mg Famotidine (Pepcid -) 20 mg PO DAILY COUNT INCLUDES THE [facility] Last Admin: 07/26/19 09:58 Dose: 20 mg Folic Acid (Folic Acid -) 1 mg PO DAILY COUNT INCLUDES THE [facility] Last Admin: 07/26/19 09:58 Dose: 1 mg Gabapentin (Neurontin -) 100 mg PO DAILY COUNT INCLUDES THE [facility] Last Admin: 07/26/19 09:58 Dose: 100 mg Gabapentin (Neurontin -) 300 mg PO HS COUNT INCLUDES THE [facility] Last Admin: 07/25/19 21:32 Dose: 300 mg Heparin Sodium (Porcine) (Heparin -) 5,000 unit SQ BID COUNT INCLUDES THE [facility] Last Admin: 07/26/19 09:57 Dose: 5,000 unit Sodium Chloride (Normal Saline -) 250 mls @ 3,000 mls/hr IV PRN PRN PRN Reason: Hypotension during Dialysis Stop: 07/27/19 09:07 Insulin Aspart (Novolog Vial Sliding Scale -) 1 vial SQ ACHS COUNT INCLUDES THE [facility]; Protocol Last Admin: 07/26/19 11:37 Dose: 2 units Valsartan (Diovan -) 160 mg PO DAILY COUNT INCLUDES THE [facility] Last Admin: 07/26/19 09:58 Dose: 160 mg - Objective Vital Signs: Vital Signs Temperature 98.2 F 07/26/19 12:15 Pulse Rate 80 07/26/19 12:20 Respiratory Rate 18 07/26/19 12:20 Blood Pressure 153/92 07/26/19 12:20 O2 Sat by Pulse Oximetry (%) 100 07/26/19 09:00 Constitutional: Yes: Well Nourished, No Distress, Calm Eyes: Yes: WNL, Conjunctiva Clear, EOM Intact HENT: Yes: WNL, Atraumatic, Normocephalic Neck: Yes: WNL, Supple, Trachea Midline Cardiovascular: Yes: WNL, Regular Rate and Rhythm, S1, S2 Respiratory: Yes: WNL, Regular, CTA Bilaterally Gastrointestinal: Yes: WNL, Normal Bowel Sounds, Soft ...Rectal Exam: Yes: Deferred Genitourinary: Yes: Anuria Musculoskeletal: Yes: WNL Extremities: Yes: WNL Edema: Yes Edema: LLE: Trace, RLE: Trace Peripheral Pulses: Left Radial: 1+, Right Radial: 1+, Left Doralis Pedis: 1+, Right Dorsalis Pedis: 1+, Left Femoral: 1+, Right Femoral: 1+ Neurological: Yes: WNL, Alert, Oriented ...Motor Strength: WNL Psychiatric: Yes: WNL, Alert, Oriented Labs: CBC, BMP 07/26/19 05:45 07/26/19 05:45 INR, PTT INR 0.97 (0.83-1.09) 07/24/19 15:55 Assessment/Plan The patient is a 53-year-old man type 1 diabetes, hypertension, end-stage renal disease on hemodialysis (recently began),coronary artery disease and myocardial infarction (no cardiac catheterization due torenalfailure0, now presenting with recurrent chest pains, fluid overload, and severe anemia. The patient is currently comfortable and symptom free. No evidence of ischemia nor acute coronary syndrome. the ECG shows sinus rhythm with an old septal infarct and left atrial enlargement with nonspecific ST-T changes. the patient has been stable and chest pain-free.Received a blood transfusion.Hemoglobin seems stable. Fluid being removed with hemodialysis. the echocardiogram showed normal left ventricular systolic function with moderate concentric left ventricular hypertrophy and mild pulmonary hypertension. Please continue current regimen. i'll arrange for transfer to [facility] for cardiac catheterization. Cardiac catheterization is scheduled for 07/29/2019. The patient is stable.
--- NOTE | 2019-07-26 13:50 | EKG ---
Test Reason : Blood Pressure : / mmHG Vent. Rate : 072 BPM Atrial Rate : 072 BPM P-R Int : 166 ms QRS Dur : 102 ms QT Int : 414 ms P-R-T Axes : 056 011 023 degrees QTc Int : 453 ms NORMAL SINUS RHYTHM NON-SPECIFIC INTRA-VENTRICULAR CONDUCTION DELAY POOR R WAVE PROGRESSION WHEN COMPARED WITH ECG OF 24-JUL-2019 15:12, NO SIGNIFICANT CHANGE WAS FOUND Confirmed by SKINNY RAGSDALE MD ([id number]) on 07/26/2019 1:50:25 PM Referred By: YOJANA MCMILLAN Confirmed By:SKINNY RAGSDALE MD
--- NOTE | 2019-07-26 14:30 | DS ---
Physical Examination Vital Signs: Vital Signs Temperature 98.2 F 07/26/19 12:15 Pulse Rate 77 07/26/19 13:20 Respiratory Rate 18 07/26/19 13:20 Blood Pressure 135/72 07/26/19 13:20 O2 Sat by Pulse Oximetry (%) 100 07/26/19 09:00 Constitutional: Yes: Calm Cardiovascular: Yes: Regular Rate and Rhythm, S1, S2 Respiratory: Yes: CTA Bilaterally Gastrointestinal: Yes: Normal Bowel Sounds, Soft Labs: CBC, BMP 07/26/19 05:45 07/26/19 05:45 Discharge Summary Problems reviewed: Yes Reason For Visit: CHEST PAIN Current Active Problems Anemia (Acute) Chest pain (Acute) Diabetes mellitus (Acute) ESRD (end stage renal disease) (Acute) HTN (hypertension) (Acute) Weak (Acute) Other Procedures: echo shows moderate concentric left ventricle hypertrophy and systolic ejection fraction is 55 % Hospital Course: Mr. Woods is a 53M with hx T1DM, CKD on MWF dialysis, bilateral LE neuropathy , diabetic gastroparesis, recent hospitalization for ACS from 07/12-07/19/2019 presenting today with acute onset chest pain that began this morning, as well as referral from PCP Dr. Melchor after outpatient Hg resulted at 6.7. He reports that he recently moved from [place] and has been in the process of establishing medical care in the area. He reports that he recently started MWF dialysis after his recent hospitalization, and had access for dialysis placed during that hospitalization. His last dialysis was two days ago. He is scheduled for dialysis today, but was unable to present for dialysis due to his ED visit. Additionally, reports chest pain that began this morning upon awakening. He describes the pain as stabbing, non-pleuritic, intermittent, with varying severity from 3-7. He denies any shortness of breath, headache, weakness , confusion, lightheadedness, vertigo. echo done got prbc with HD and chest pain free plan to go to [facility] for cardiac catherization Condition: Stable - Instructions Referrals: Nader Melchor MD [Primary Care Provider] - Disposition: TRANSFER ACUTE CARE/OTHER HOSP - Home Medications Comprehensive Discharge Medication List: Ambulatory Orders Amlodipine Besylate 10 mg PO DAILY 07/24/19 Aspirin 81 mg PO DAILY 07/24/19 Bumetanide 2 mg PO DAILY 07/24/19 Calcitriol [Calcitriol -] 0.25 mcg PO 07/24/19 Carvedilol 12.5 mg PO BID 07/24/19 Clopidogrel Bisulfate [Clopidogrel] 75 mg PO DAILY 07/24/19 Famotidine 20 mg PO DAILY 07/24/19 Folic Acid 1 mg PO DAILY 07/24/19 Gabapentin 100 mg PO DAILY 07/24/19 Gabapentin 300 mg PO HS 07/24/19 Insulin Aspart [Novolog] 10 unit SQ HS 07/24/19 Insulin Regular, Human [Humulin R U-500 Kwikpen] unit SQ TID 07/24/19 Sodium Bicarbonate - 1,950 mg PO TID 07/24/19 Valsartan 160 mg PO DAILY 07/24/19
[2019-07-26 15:24] VITALS: BMI 27.4
--- NOTE | 2019-07-26 15:52 | PN ---
Progress Note, Physician History of Present Illness: Pt seen and examined at bedside. He is awake and alert. He is tolerating HD. He currently denied chest pain. - Current Medication List Current Medications: Active Medications Amlodipine Besylate (Norvasc -) 10 mg PO DAILY [facility] Last Admin: 07/26/19 09:58 Dose: 10 mg Aspirin (Asa -) 81 mg PO DAILY [facility] Last Admin: 07/26/19 09:58 Dose: 81 mg Carvedilol (Coreg -) 12.5 mg PO BID [facility] Last Admin: 07/26/19 09:58 Dose: 12.5 mg Clopidogrel Bisulfate (Plavix -) 75 mg PO DAILY [facility] Last Admin: 07/26/19 09:58 Dose: 75 mg Famotidine (Pepcid -) 20 mg PO DAILY [facility] Last Admin: 07/26/19 09:58 Dose: 20 mg Folic Acid (Folic Acid -) 1 mg PO DAILY [facility] Last Admin: 07/26/19 09:58 Dose: 1 mg Gabapentin (Neurontin -) 100 mg PO DAILY [facility] Last Admin: 07/26/19 09:58 Dose: 100 mg Gabapentin (Neurontin -) 300 mg PO HS [facility] Last Admin: 07/25/19 21:32 Dose: 300 mg Heparin Sodium (Porcine) (Heparin -) 5,000 unit SQ BID [facility] Last Admin: 07/26/19 09:57 Dose: 5,000 unit Sodium Chloride (Normal Saline -) 250 mls @ 3,000 mls/hr IV PRN PRN PRN Reason: Hypotension during Dialysis Stop: 07/27/19 09:07 Insulin Aspart (Novolog Vial Sliding Scale -) 1 vial SQ [facility]; Protocol Last Admin: 07/26/19 11:37 Dose: 2 units Valsartan (Diovan -) 160 mg PO DAILY [facility] Last Admin: 07/26/19 09:58 Dose: 160 mg - Objective Vital Signs: Vital Signs Temperature 98.1 F 07/26/19 14:15 Pulse Rate 84 07/26/19 15:30 Respiratory Rate 18 07/26/19 15:30 Blood Pressure 159/78 07/26/19 15:30 O2 Sat by Pulse Oximetry (%) 100 07/26/19 09:00 Constitutional: Yes: Calm Eyes: Yes: Conjunctiva Clear HENT: Yes: Atraumatic Cardiovascular: Yes: S1, S2 Respiratory: Yes: CTA Bilaterally Gastrointestinal: Yes: Normal Bowel Sounds, Soft Genitourinary: Yes: WNL Musculoskeletal: Yes: WNL Edema: Yes Edema: LLE: 1+, RLE: 1+ Neurological: Yes: Oriented Psychiatric: Yes: Oriented Labs: CBC, BMP 07/26/19 05:45 07/26/19 05:45 INR, PTT INR 0.97 (0.83-1.09) 07/24/19 15:55 Problem List - Problems (1) ESRD (end stage renal disease) Code(s): N18.6 - END STAGE RENAL DISEASE (2) Anemia Code(s): D64.9 - ANEMIA, UNSPECIFIED (3) Diabetes mellitus Code(s): E11.9 - TYPE 2 DIABETES MELLITUS WITHOUT COMPLICATIONS (4) HTN (hypertension) Code(s): I10 - ESSENTIAL (PRIMARY) HYPERTENSION Assessment/Plan Current Medications Generic Name Dose Route Start Last Admin Trade Name Freq PRN Reason Stop Dose Admin Amlodipine Besylate 10 mg 07/25/19 10:00 07/26/19 09:58 Norvasc - PO 10 mg DAILY [facility] Administration Aspirin 81 mg 07/25/19 10:00 07/26/19 09:58 Asa - PO 81 mg DAILY [facility] Administration Carvedilol 12.5 mg 07/24/19 22:00 07/26/19 09:58 Coreg - PO 12.5 mg BID [facility] Administration Clopidogrel Bisulfate 75 mg 07/25/19 10:00 07/26/19 09:58 Plavix - PO 75 mg DAILY [facility] Administration Famotidine 20 mg 07/25/19 10:00 07/26/19 09:58 Pepcid - PO 20 mg DAILY [facility]IZA Administration Folic Acid 1 mg 07/25/19 10:00 07/26/19 09:58 Folic Acid - PO 1 mg DAILY [facility] Administration Gabapentin 100 mg 07/25/19 10:00 07/26/19 09:58 Neurontin - PO 100 mg DAILY [facility]A Administration Gabapentin 300 mg 07/24/19 22:00 07/25/19 21:32 Neurontin - PO 300 mg HS [facility]IZA Administration Heparin Sodium (Porcine) 5,000 unit 07/24/19 22:00 07/26/19 09:57 Heparin - SQ 5,000 unit BID [facility] Administration Sodium Chloride 250 mls @ 3,000 mls/hr 07/26/19 09:07 Normal Saline - IV 07/27/19 09:07 PRN PRN Hypotension during Dialysis Insulin Aspart 1 vial 07/24/19 22:00 07/26/19 11:37 Novolog Vial Sliding Scale - SQ 2 units ACHS [facility]IZA Administration Protocol Valsartan 160 mg 07/25/19 10:00 07/26/19 09:58 Diovan - PO 160 mg DAILY [facility] Administration Impression 1. ESRD 2. anemia 3. chest pain 4. htn 5. dm 6. hyperkalemia Plan - HD today as he is on a MWF schedule and missed Monday - pt will be transferred for cath - pt will follow with me as outpt, he wants to move his care from the [facility] to [place] - pt to be set up at [facility], he will call next week
--- NOTE | 2019-07-26 19:36 | CONSULT ---
Consult Consult Specialty:: endocrine Referred by:: davin batista md. Reason for Consultation:: dm type 1 - History of Present Illness Chief Complaint: high sugars History of Present Illness: 53-year-old male history of DM T1, end-stage renal disease recent,[place] admitted for chest pain. Patient found to have anemia,hb 7.6,repeat 9.5 hb,has dyspnea on exertion and chest pain,no fever chill,cough or vomiting,denies hypoglycemia, has been on cgms system but stopped using it.he takes insulin injections based on sliding scale insulin doses.he is vision impaired and requires help with medication and adl. - Past Medical History Cardio/Vascular: Yes: CAD, HTN, [place] Renal/: Yes: Renal Failure, Hemodialysis Endocrine: Yes: Diabetes Mellitus - Alcohol/Substance Use Hx Alcohol Use: No - Smoking History Smoking history: Never smoked Home Medications - Allergies Allergies/Adverse Reactions: Allergies Allergy/AdvReac Type Severity Reaction Status Date / Time No Known Allergies Allergy Verified 07/24/19 15:22 - Home Medications Home Medications: Ambulatory Orders Amlodipine Besylate 10 mg PO DAILY 07/24/19 Aspirin 81 mg PO DAILY 07/24/19 Carvedilol 12.5 mg PO BID 07/24/19 Clopidogrel Bisulfate [Clopidogrel] 75 mg PO DAILY 07/24/19 Famotidine 20 mg PO DAILY 07/24/19 Folic Acid 1 mg PO DAILY 07/24/19 Gabapentin 100 mg PO DAILY 07/24/19 Gabapentin 300 mg PO HS 07/24/19 Insulin Aspart [Novolog] 10 unit SQ HS 07/24/19 Insulin Regular, Human [Humulin R U-500 Kwikpen] unit SQ TID 07/24/19 Sodium Bicarbonate - 1,950 mg PO TID 07/24/19 Valsartan 160 mg PO DAILY 07/24/19 Review of Systems - Review of Systems Constitutional: reports: Lethargy Eyes: reports: Recent Change in Vision HENT: reports: No Symptoms Neck: reports: No Symptoms Cardiovascular: reports: No Symptoms Respiratory: reports: Exercise Intolerance, SOB on Exertion Gastrointestinal: reports: No Symptoms Genitourinary: reports: No Symptoms Neurological: reports: Numbness, Weakness Physical Exam Vital Signs: Vital Signs Temperature 97.8 F 07/26/19 18:00 Pulse Rate 81 07/26/19 18:06 Respiratory Rate 20 07/26/19 18:06 Blood Pressure 135/73 07/26/19 18:06 O2 Sat by Pulse Oximetry (%) 100 07/26/19 09:00 Constitutional: Yes: Anxious Eyes: Yes: EOM Intact HENT: Yes: Normocephalic Neck: Yes: Trachea Midline Cardiovascular: Yes: Regular Rate and Rhythm Gastrointestinal: Yes: Normal Bowel Sounds ...Rectal Exam: Yes: Deferred Neurological: Yes: Alert, Oriented Labs: CBC, BMP 07/26/19 05:45 07/26/19 05:45 Problem List - Problems (1) Anemia Problems reviewed: Yes Code(s): D64.9 - ANEMIA, UNSPECIFIED Qualifiers: Vitamin B12 deficiency anemia type: intrinsic factor deficiency (2) Chest pain Problems reviewed: Yes Code(s): R07.9 - CHEST PAIN, UNSPECIFIED (3) Diabetes mellitus Problems reviewed: Yes Code(s): E11.9 - TYPE 2 DIABETES MELLITUS WITHOUT COMPLICATIONS (4) ESRD (end stage renal disease) Code(s): N18.6 - END STAGE RENAL DISEASE (5) HTN (hypertension) Code(s): I10 - ESSENTIAL (PRIMARY) HYPERTENSION Assessment/Plan Current Active Problems Anemia (Acute) Chest pain (Acute) Diabetes mellitus (Acute) ESRD (end stage renal disease) (Acute) HTN (hypertension) (Acute) Weak (Acute) Abnormal Lab Results 07/26/19 07/26/19 05:45 05:45 WBC 3.3 L RBC 3.08 L Hgb 9.5 L Hct 27.8 L D Monocytes % 14.9 H Eosinophils % 7.3 H BUN 28.8 H Creatinine 3.0 H Random Glucose 217 H Iron Saturation 59 H Unsaturated IBC 114 L Ferritin 630.3 H Total Protein 5.2 L Albumin 2.7 L Serum Folate 25 H Laboratory Results - last 24 hr 07/25/19 07/26/19 07/26/19 21:27 05:45 05:45 WBC 3.3 L RBC 3.08 L Hgb 9.5 L Hct 27.8 L D MCV 90.3 MCH 30.7 MCHC 34.1 RDW 14.3 Plt Count 198 MPV 8.0 Absolute Neuts (auto) 1.9 Neutrophils % 58.5 Lymphocytes % 17.4 Monocytes % 14.9 H Eosinophils % 7.3 H Basophils % 1.9 Nucleated RBC % 0 Retic Count No Result Required. Sodium 137 Potassium 5.0 Chloride 100 Carbon Dioxide 29 Anion Gap 9 BUN 28.8 H Creatinine 3.0 H Est GFR (CKD-EPI)AfAm 25.90 Est GFR (CKD-EPI)NonAf 22.35 POC Glucometer 285 Random Glucose 217 H Calcium 8.5 Iron 169 TIBC 283 Iron Saturation 59 H Unsaturated IBC 114 L Ferritin 630.3 H Total Bilirubin 0.5 AST 24 ALT 27 Alkaline Phosphatase 65 Total Protein 5.2 L Albumin 2.7 L Vitamin B12 707 Serum Folate 25 H 07/26/19 07/26/19 07/26/19 05:47 09:44 11:12 WBC RBC Hgb Hct MCV MCH MCHC RDW Plt Count MPV Absolute Neuts (auto) Neutrophils % Lymphocytes % Monocytes % Eosinophils % Basophils % Nucleated RBC % Retic Count Sodium Potassium Chloride Carbon Dioxide Anion Gap BUN Creatinine Est GFR (CKD-EPI)AfAm Est GFR (CKD-EPI)NonAf POC Glucometer 215 122 239 Random Glucose Calcium Iron TIBC Iron Saturation Unsaturated IBC Ferritin Total Bilirubin AST ALT Alkaline Phosphatase Total Protein Albumin Vitamin B12 Serum Folate 07/26/19 16:49 WBC RBC Hgb Hct MCV MCH MCHC RDW Plt Count MPV Absolute Neuts (auto) Neutrophils % Lymphocytes % Monocytes % Eosinophils % Basophils % Nucleated RBC % Retic Count Sodium Potassium Chloride Carbon Dioxide Anion Gap BUN Creatinine Est GFR (CKD-EPI)AfAm Est GFR (CKD-EPI)NonAf POC Glucometer 252 Random Glucose Calcium Iron TIBC Iron Saturation Unsaturated IBC Ferritin Total Bilirubin AST ALT Alkaline Phosphatase Total Protein Albumin Vitamin B12 Serum Folate plan: bgm qid novolog scale levemir 10 unit hs ck hba1c cardiac workup [facility]
[2019-07-26 19:47] VITALS: BP 151/91; PULSE 98; TEMP 98.5
[2019-07-26] MEDS ORDERED: INSULIN (LEVEMIR) 100 UNITS/ML UNITS SQ SCH (22:00)
[2019-07-27 19:07] LABS: HEP B CORE AB, TOT Negative (Negative)
== END 2019-07-26 20:05 | disposition short-term general hospital (02) | DRG 190 ==
LOC: JER 15:09 → JERBED 16:49 → J4W 18:18
PROVIDERS: ADMIT Family Medicine; ATTEND Family Medicine
PROC: 30233N1 Transfusion of Nonautologous Red Blood Cells into Peripheral Vein, Percutaneous Approach (ICD-10-PCS; principal; 2019-07-24)
PROC: 5A1D70Z Performance of Urinary Filtration, Intermittent, Less than 6 Hours Per Day (ICD-10-PCS; 2019-07-25)
PROC: 5A1D70Z Performance of Urinary Filtration, Intermittent, Less than 6 Hours Per Day (ICD-10-PCS; 2019-07-26)
DX: I22.2 Subsequent non-ST elevation (NSTEMI) myocardial infarction (principal); I12.0 Hypertensive chronic kidney disease with stage 5 chronic kidney disease or end stage renal disease; E10.40 Type 1 diabetes mellitus with diabetic neuropathy, unspecified; E10.43 Type 1 diabetes mellitus with diabetic autonomic (poly)neuropathy; K31.84 Gastroparesis; I25.10 Atherosclerotic heart disease of native coronary artery without angina pectoris; I25.2 Old myocardial infarction; E10.22 Type 1 diabetes mellitus with diabetic chronic kidney disease; N18.6 End stage renal disease; D63.1 Anemia in chronic kidney disease; E87.5 Hyperkalemia; E87.70 Fluid overload, unspecified; I27.20 Pulmonary hypertension, unspecified; Z66 Do not resuscitate; I21.4 Non-ST elevation (NSTEMI) myocardial infarction
CPT/HCPCS: 36415; 36430; 71045-TC-FY; 80053; 80061; 81003; 82272; 82550; 82607; 82728; 82746; 82962; 83036; 83540; 83550; 83721; 83735; 84100; 84484; 85025; 85044; 85610; 85730; 86704; 86706; 86707; 86708; 86709; 86803; 86850; 86900; 86901; 86922; 87340; 93005; 93010; 93306-TC; 93308; 99284-25; J1644; P9038; P9058

== ENCOUNTER 2019-08-16 21:11 | Inpatient (IN) | payer OTHER ==
[2019-08-16 21:23] VITALS: BMI 26.6
--- NOTE | 2019-08-16 22:19 | PDOC ---
History of Present Illness - General Chief Complaint: Chest Pain Stated Complaint: CHEST PAIN/SOB History Source: Patient Exam Limitations: No Limitations - History of Present Illness Initial Comments: 08/16/19 23:55 53M with hx T1DM, CKD on MWF dialysis, bilateral LE neuropathy, diabetic gastroparesis, recent hospitalization for ACS from 07/12-07/19/2019, CAD ( endorses 3x NSTEMI without stent placement) presents to the emergency department with 2 days of right sided chest pain. Per the patient, the pain began at rest, intermittent, described as a burning like sensation that radiates to the neck and right arm. Denies back pain involvement. Denies SOB. Per the patient, he had a cardiac work up after chest pain that occurred 2018. Concurrently, the patient has had SOB with exertion within the past 2-3 weeks. The patient also states he has seen his sugars be consistently elevated since (he has cumulatively been in the hospital for 3 weeks in the past 4 weeks). The patient states his BG has been in the 300-400 range. Normally it is at 80-110. Denies the following: fevers, chills, nausea, vomiting , headaches, abdominal pain, palpitations, dysuria, hematuria, diarrhea, and leg pain/swelling. Allergies: NKDA Past History - Past Medical History Allergies/Adverse Reactions: Allergies Allergy/AdvReac Type Severity Reaction Status Date / Time No Known Allergies Allergy Verified 08/16/19 21:23 Home Medications: Ambulatory Orders Amlodipine Besylate 10 mg PO DAILY 07/24/19 Aspirin 81 mg PO DAILY 07/24/19 Carvedilol 12.5 mg PO BID 07/24/19 Clopidogrel Bisulfate [Clopidogrel] 75 mg PO DAILY 07/24/19 Famotidine 20 mg PO DAILY 07/24/19 Folic Acid 1 mg PO DAILY 07/24/19 Gabapentin 100 mg PO DAILY 07/24/19 Gabapentin 300 mg PO HS 07/24/19 Sodium Bicarbonate - 1,950 mg PO TID 07/24/19 Valsartan 160 mg PO DAILY 07/24/19 Aspirin Coated [Ecotrin -] 81 mg PO DAILY #30 tablet.ec 08/21/19 Clopidogrel Bisulfate [Plavix -] 75 mg PO DAILY #30 tablet 08/21/19 Insulin Detemir [Levemir Flextouch] 100 unit SQ BID #4 insuln.pen 08/21/19 Insulin Regular, Human [Humulin R U-500 Kwikpen] 10 unit SQ TID #4 pack hydrALAZINE HCL [Apresoline -] 50 mg PO TID #90 tablet 08/21/19 Anemia: Yes Asthma: No Cancer: No Cardiac Disorders: Yes CVA: No COPD: No CHF: No Dementia: No Diabetes: Yes (type 1) Dialysis: Yes (started 06/29) GI Disorders: Yes (gastroparesis) Disorders: Yes HTN: (Orthostatic hypotension) Hypercholesterolemia: No Liver Disease: No Seizures: No Thyroid Disease: No - Surgical History Abdominal Surgery: (right chest shiley) Appendectomy: No Cardiac Surgery: No Cholecystectomy: No Lung Surgery: No Neurologic Surgery: Yes (fusion of C5) Orthopedic Surgery: No - Psycho Social/Smoking Cessation Hx Smoking History: Never smoked Hx Alcohol Use: No Drug/Substance Use Hx: No Substance Use Type: None Hx Substance Use Treatment: No Review of Systems - Review of Systems Able to Perform ROS?: Yes Is the patient limited Azeri proficient: No Constitutional: Yes: Weakness. No: Chills, Diaphoresis, Fever HEENTM: No: Eye Pain, Ear Pain, Nose Pain, Throat Pain, Mouth Pain Respiratory: Yes: Shortness of Breath. No: Cough, Hemoptysis Cardiac (ROS): Yes: Chest Pain. No: Lightheadedness, Palpitations, Syncope ABD/GI: No: Constipated, Diarrhea, Nausea, Rectal Bleeding, Vomiting, Tarry Stools : No: Burning, Dysuria, Hematuria Musculoskeletal: No: Back Pain, Joint Pain, Neck Pain Integumentary: No: Bruising, Erythema, Flushing Neurological: No: Headache, Numbness, Tingling Psychiatric: No: Change in Appetite Endocrine: No: Unexplained Weight Gain Hematologic/Lymphatic: No: Anemia *Physical Exam - Vital Signs Last Vital Signs Temp Pulse Resp BP Pulse Ox 97.6 F 80 18 140/81 98 08/16/19 21:19 08/16/19 21:19 08/16/19 21:19 08/16/19 21:19 08/16/19 21:19 - Physical Exam General Appearance: Yes: Nourished, Appropriately Dressed. No: Apparent Distress, Obese HEENT: positive: EOMI, DOMENIC, Normal ENT Inspection, Normal Voice, Symmetrical, TMs Normal, Pharynx Normal, Hearing Grossly Normal. negative: Pale Conjunctivae , Scleral Icterus (R), Scleral Icterus (L), Muffled/Hoarse voice, Pharyngeal Erythema, Tonsillar Exudate, Tonsillar Erythema, Excessive drooling Neck: positive: Trachea midline, Supple. negative: Tender, Lymphadenopathy (R) , Lymphadenopathy (L), Tender lateral, Tender midline Respiratory/Chest: positive: Lungs Clear, Normal Breath Sounds. negative: Chest Tender, Respiratory Distress, Accessory Muscle Use Cardiovascular: positive: Regular Rhythm, Regular Rate, S1, S2. negative: Systolic Murmur Gastrointestinal/Abdominal: positive: Normal Bowel Sounds, Flat, Soft. negative : Tender, Rebound, Tenderness, Hernia Lymphatic: negative: Adenopathy Musculoskeletal: positive: Normal Inspection. negative: CVA Tenderness, Vertebral Tenderness Integumentary: positive: Normal Color, Dry, Warm. 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 Initial vitals: Initial Vital Signs Temp Pulse Resp BP Pulse Ox 97.6 F 80 18 140/81 98 08/16/19 21:19 08/16/19 21:19 08/16/19 21:19 08/16/19 21:19 08/16/19 21:19 Work up: ddx: patient presents with uncontrolled BG and chest pain. will rule out ACS and assess possibility if patient has DKA. Laboratory Tests 08/16/19 08/16/19 08/16/19 22:50 22:54 22:54 WBC RBC Hgb Hct MCV MCH MCHC RDW Plt Count MPV Absolute Neuts (auto) Neutrophils % Lymphocytes % Monocytes % Eosinophils % Basophils % Nucleated RBC % VBG pH POC VBG pCO2 POC VBG pO2 VBG HCO3 VBG O2 Sat (Armen) VBG Base Excess Sodium 138 Potassium 3.5 Chloride 94 L Carbon Dioxide 29 Anion Gap 16 BUN 12.1 Creatinine 2.7 H Est GFR (CKD-EPI)AfAm 29.42 Est GFR (CKD-EPI)NonAf 25.39 Random Glucose 396 H Calcium 8.2 L Total Bilirubin 0.5 AST 14 L ALT 17 Alkaline Phosphatase 82 Creatine Kinase 60 Troponin I 0.02 Total Protein 5.8 L Albumin 3.0 L Beta-Hydroxybutyrate 57.7 H Urine Color Yellow Urine Appearance Clear Urine pH 7.5 Ur Specific [place] 1.023 Urine Protein 4+ H Urine Glucose (UA) 3+ H Urine Ketones 1+ H Urine Blood Trace Urine Nitrite Negative Urine Bilirubin Negative Urine Urobilinogen 1.0 Ur Leukocyte Esterase Negative Urine WBC (Auto) 3 Urine RBC (Auto) 2 Urine Casts (Auto) 4 U Epithel Cells (Auto) 6.9 Urine Bacteria (Auto) 4.3 08/16/19 08/16/19 08/16/19 22:54 22:54 22:54 WBC 3.3 L RBC 3.36 L Hgb 10.4 L Hct 30.9 L MCV 91.9 MCH 30.9 MCHC 33.6 RDW 17.0 H Plt Count 146 D MPV 8.8 Absolute Neuts (auto) 2.2 Neutrophils % 67.2 Lymphocytes % 14.7 Monocytes % 12.6 H Eosinophils % 4.1 Basophils % 1.4 Nucleated RBC % 0 VBG pH 7.42 H POC VBG pCO2 45.0 POC VBG pO2 < 49 H VBG HCO3 28.8 VBG O2 Sat (Armen) 68.5 L VBG Base Excess 4.3 H Sodium Cancelled Potassium Cancelled Chloride Cancelled Carbon Dioxide Cancelled Anion Gap Cancelled BUN Cancelled Creatinine Cancelled Est GFR (CKD-EPI)AfAm Cancelled Est GFR (CKD-EPI)NonAf Cancelled Random Glucose Cancelled Calcium Cancelled Total Bilirubin Cancelled AST Cancelled ALT Cancelled Alkaline Phosphatase Cancelled Creatine Kinase Troponin I Total Protein Cancelled Albumin Cancelled Beta-Hydroxybutyrate Urine Color Urine Appearance Urine pH Ur Specific [place] Urine Protein Urine Glucose (UA) Urine Ketones Urine Blood Urine Nitrite Urine Bilirubin Urine Urobilinogen Ur Leukocyte Esterase Urine WBC (Auto) Urine RBC (Auto) Urine Casts (Auto) U Epithel Cells (Auto) Urine Bacteria (Auto) patient is not acidotic. troponin negative patient's beta hydroxybutyrate is elevated in the setting of normal pH with compensation Head CT is negative for acute process Chest xray is negative for acute process EKG shows NSR with prolonged QT with no ST elevations or depressions. TWI noted in lead III and avF. Patient to be admitted for further cardiac work up in the setting of suspected ACS. Dispo: Admit Discharge - Discharge Information Problems reviewed: Yes Clinical Impression/Diagnosis: ESRD (end stage renal disease), Chest pain Condition: Improved Disposition: VNS/HOME HEALTH CARE - Follow up/Referral - Patient Discharge Instructions - Post Discharge Activity
--- NOTE | 2019-08-16 22:22 | PDOC ---
Attending Attestation - Resident Resident Name: MarkyQasim - ED Attending Attestation I have performed the following: I have examined & evaluated the patient, The case was reviewed & discussed with the resident, I agree w/resident's findings & plan - HPI HPI: 08/17/19 00:11 CP began 2 days ago; worse with exertion; pain resolved at this point. Blood sugar is 700s. Out of control since , however pt is a vegan and he eats properly. Pt states that he fell 2 weeks ago, at 3-4AM he went to open the front door for his son-in-law after he got back from work; pt states that he undid the chain on the door, and that the next thing he knew he was on the ground. Pt likely had the door opened on him. 08/17/19 01:44 Pt tells me that he has been to 4 hospitals recently for his poorly controlled DM; worrisome to his family because he eats properly and they don't know what else he could be doing. 08/17/19 01:48 Pt suffers with gastroparesis and peripheral neuropathy and he has had DM x 19 years. - Physicial Exam PE: 08/17/19 01:47 Heart normal lungs rosalee Afebrile VSS Pt has no rashes Abd soft NT ND minimal pitting edema in his ankles bilaterally - Medical Decision Making 08/17/19 01:25 Patient Name: CARI SCHOFIELD THIS IS A PRELIMINARY REPORT FROM [facility] DATE OF SERVICE: 2019-08-17 00:14:16 IMAGES: 229 EXAM: CT HEAD WITHOUT IV CONTRAST TECHNIQUE: Axial images from the skull base to the vertex. Bone and soft tissue windows were reviewed. Contrast: None REASON FOR EXAM: Altered mental status. COMPARISON: None. FINDINGS: Mild diffuse brain parenchymal atrophy with preservation of the pickens-white differentiation. There is no acute intracranial hemorrhage, mass effect or midline shift. No abnormal intra-axial or extra-axial fluid collection is seen. The periventricular white matter is unremarkable. The ventricles and basilar cisterns are maintained. The bones of the calvarium and imaged skull base demonstrate no acute abnormality. The imaged paranasal sinuses and mastoid air cells : Unremarkable. IMPRESSION: 1. No acute territorial infarct, hemorrhage, or space-occupying mass 08/17/19 01:26 Labs glc is 396 +Beta-hydroxybutyrate UA shows ketones and glucose; no infection WBC normal Hb/HCT anemia but stable at 10 Hb Ammonia level and UTOX will be sent 08/17/19 01:27 08/17/19 01:[address] normal 08/17/19 20:12 Pt admitted to the hospitalist team Heart Score/ECG Review - ECG Intrepretation Rhythm: Regular Rhythm - [place]: Normal - P and WA Prominent R with upright T in V1 (true posterior VT): No Delta Wave(s) Present: No WPW: No - QRS Poor R Wave Progression: No Q Wave Present: No - ST and T Early Repolarization: No Non Specific ST-T Wave changes: No Flattened T Waves: No Prolonged Q-T Interval: Yes - ECG Impressions Normal ECG: Yes Non-specific ST Elevation: No Ischemic Changes: No
[2019-08-16 23:10] LABS: BASO % 1.4 % (0-2.0); EOS % 4.1 % (0-4.5); HEMATOCRIT 30.9 % (35.4-49); HEMOGLOBIN 10.4 GM/dL (11.7-16.9); LYMPH % 14.7 % (8-40); MCH 30.9 pg (25.7-33.7); MCHC 33.6 g/dl (32.0-35.9); MEAN CELL VOLUME 91.9 fl (80-96); MEAN PLT VOLUME 8.8 fl (7.5-11.1); MONO % 12.6 % (3.8-10.2); NEUT % 67.2 % (42.8-82.8); PLATELET COUNT 146 K/MM3 (134-434); RBC 3.36 M/mm3 (4.00-5.60); VENOUS PH 7.42 (7.31-7.41); WHITE BLOOD COUNT 3.3 K/mm3 (4.0-10.0)
[2019-08-16 23:11] LABS: VENOUS PO2 < 49 mmHg (28-48)
[2019-08-16 23:38] LABS: BILIRUBIN,TOTAL 0.5 mg/dL (0.2-1); BLOOD UREA NITROGEN 12.1 mg/dL (7-18); CALCIUM 8.2 mg/dL (8.5-10.1); CREATININE 2.7 mg/dL (0.55-1.3); POTASSIUM 3.5 mmol/L (3.5-5.1); TOT PROT 5.8 g/dl (6.4-8.2)
[2019-08-17 00:34] LABS: EPI CELLS 6.9 /HPF (0-5/HPF); HYALINE CASTS 4 /lpf (0-8); PH,URINE 7.5 (5.0-8.0); URINE APPEARANCE CLEAR; URINE BACTERIA 4.3 /hpf (NEGATIVE); URINE BILIRUBIN NEGATIVE (NEGATIVE); URINE COLOR YELLOW; URINE GLUCOSE (UA) 3+ (NEGATIVE); URINE KETONE 1+ (NEGATIVE); URINE LEUK ESTERASE NEGATIVE (NEGATIVE); URINE NITRITE NEGATIVE (NEGATIVE); URINE PROTEIN 4+ (NEGATIVE); URINE RBC 2 /hpf (0-4); URINE WBC 3 /hpf (0-5)
[2019-08-17] MEDS ORDERED: SODIUM CHLORIDE 0.9% 500 ML INFUS.BAG IV ONE (01:43)
--- NOTE | 2019-08-17 01:54 | HP ---
Admitting History and Physical - Primary Care Physician PCP: Nader Melchor - Admission Chief Complaint: Chest Pain, SOB History of Present Illness: This is a 53 y/o man with a significant PMHx of T1DM, ESRD (M,W,F), [place] s/p cardiac catheterization (no Stent), Diabetic Gastroparesis, bilateral LE Neuropathy, recent hospitalizations for ACS 07/12-07/19, 07/25-07/26. Who presents to the ED for chest pain radiating to his neck/ R-arm x 1 day with SOB. Patient describes the pain as "stabbing" which radiates to his neck and R- arm. He states it was a constant burning lasting for 4 hrs- now resolved. Patient also reports having yellow loose diarrhea. He reports having high blood glucose readings at home > 700. He reports taking his medications as prescribed. Patient denies fever, chills, cough, dizziness, HAYWOOD, palpitations, AP , N/V, constipation, dysuria. History Source: Patient, Family Member Limitations to Obtaining History: No Limitations - Past Medical History Cardiovascular: Yes: CAD, HTN, [place] Renal/: Yes: Renal Failure, Hemodialysis Endocrine: Yes: Diabetes Mellitus - Past Surgical History Additional Past Surgical History: Shiley Placement- RCW - Smoking History Smoking history: Never smoked - Alcohol/Substance Use Hx Alcohol Use: No Home Medications - Allergies Allergies/Adverse Reactions: Allergies Allergy/AdvReac Type Severity Reaction Status Date / Time No Known Allergies Allergy Verified 08/16/19 21:23 - Home Medications Home Medications: Ambulatory Orders Amlodipine Besylate 10 mg PO DAILY 07/24/19 Aspirin 81 mg PO DAILY 07/24/19 Carvedilol 12.5 mg PO BID 07/24/19 Clopidogrel Bisulfate [Clopidogrel] 75 mg PO DAILY 07/24/19 Famotidine 20 mg PO DAILY 07/24/19 Folic Acid 1 mg PO DAILY 07/24/19 Gabapentin 100 mg PO DAILY 07/24/19 Gabapentin 300 mg PO HS 07/24/19 Insulin Aspart [Novolog] 10 unit SQ HS 07/24/19 Insulin Regular, Human [Humulin R U-500 Kwikpen] unit SQ TID 07/24/19 Sodium Bicarbonate - 1,950 mg PO TID 07/24/19 Valsartan 160 mg PO DAILY 07/24/19 Family Medical History Family History: Unable to Obtain Review of Systems - Review of Systems Constitutional: reports: Loss of Appetite, Malaise, Weakness Eyes: reports: No Symptoms HENT: reports: No Symptoms Neck: reports: Other (anterior neck pain) Cardiovascular: reports: Chest Pain, Shortness of Breath Respiratory: reports: SOB, SOB on Exertion Gastrointestinal: reports: Diarrhea, Indigestion Genitourinary: reports: No Symptoms Breasts: reports: No Symptoms Reported Musculoskeletal: reports: Extremity Pain Integumentary: reports: No Symptoms Neurological: reports: Weakness Endocrine: reports: Increased Thirst Hematology/Lymphatic: reports: No Symptoms Psychiatric: reports: No Symptoms Pain Intensity: 6 Physical Examination Vital Signs: Vital Signs Temperature 97.6 F 08/16/19 21:19 Pulse Rate 84 08/16/19 23:15 Respiratory Rate 18 08/16/19 23:15 Blood Pressure 160/77 08/16/19 23:15 O2 Sat by Pulse Oximetry (%) 99 08/16/19 23:15 Constitutional: Yes: Mild Distress Eyes: Yes: WNL, Conjunctiva Clear, EOM Intact, PERRL HENT: Yes: WNL, Atraumatic, Normocephalic Neck: Yes: WNL, Supple, Trachea Midline Cardiovascular: Yes: WNL, Regular Rate and Rhythm, S1, S2 Respiratory: Yes: WNL, Regular, CTA Bilaterally Gastrointestinal: Yes: Normal Bowel Sounds, Soft. No: Tenderness, Tenderness, Epigastrium ...Rectal Exam: Yes: Deferred Renal/: Yes: WNL Breast(s): Yes: WNL Musculoskeletal: Yes: WNL Extremities: Yes: WNL Edema: No Peripheral Pulses WNL: Yes Neurological: Yes: WNL, Alert, Oriented, Cran Nerves II-XII Intact ...Motor Strength: WNL Psychiatric: Yes: WNL, Alert, Oriented Labs: CBC, BMP 08/16/19 22:54 08/16/19 22:54 Laboratory Results - last 24 hr 08/16/19 08/16/19 08/16/19 22:50 22:54 22:54 WBC RBC Hgb Hct MCV MCH MCHC RDW Plt Count MPV Absolute Neuts (auto) Neutrophils % Lymphocytes % Monocytes % Eosinophils % Basophils % Nucleated RBC % VBG pH POC VBG pCO2 POC VBG pO2 VBG HCO3 VBG O2 Sat (Armen) VBG Base Excess Sodium 138 Potassium 3.5 Chloride 94 L Carbon Dioxide 29 Anion Gap 16 BUN 12.1 Creatinine 2.7 H Est GFR (CKD-EPI)AfAm 29.42 Est GFR (CKD-EPI)NonAf 25.39 POC Glucometer Random Glucose 396 H Calcium 8.2 L Total Bilirubin 0.5 AST 14 L ALT 17 Alkaline Phosphatase 82 Ammonia Creatine Kinase 60 Troponin I 0.02 Total Protein 5.8 L Albumin 3.0 L Beta-Hydroxybutyrate 57.7 H Urine Color Yellow Urine Appearance Clear Urine pH 7.5 Ur Specific [place] 1.023 Urine Protein 4+ H Urine Glucose (UA) 3+ H Urine Ketones 1+ H Urine Blood Trace Urine Nitrite Negative Urine Bilirubin Negative Urine Urobilinogen 1.0 Ur Leukocyte Esterase Negative Urine WBC (Auto) 3 Urine RBC (Auto) 2 Urine Casts (Auto) 4 U Epithel Cells (Auto) 6.9 Urine Bacteria (Auto) 4.3 08/16/19 08/16/19 08/16/19 22:54 22:54 22:54 WBC 3.3 L RBC 3.36 L Hgb 10.4 L Hct 30.9 L MCV 91.9 MCH 30.9 MCHC 33.6 RDW 17.0 H Plt Count 146 D MPV 8.8 Absolute Neuts (auto) 2.2 Neutrophils % 67.2 Lymphocytes % 14.7 Monocytes % 12.6 H Eosinophils % 4.1 Basophils % 1.4 Nucleated RBC % 0 VBG pH 7.42 H POC VBG pCO2 45.0 POC VBG pO2 < 49 H VBG HCO3 28.8 VBG O2 Sat (Armen) 68.5 L VBG Base Excess 4.3 H Sodium Cancelled Potassium Cancelled Chloride Cancelled Carbon Dioxide Cancelled Anion Gap Cancelled BUN Cancelled Creatinine Cancelled Est GFR (CKD-EPI)AfAm Cancelled Est GFR (CKD-EPI)NonAf Cancelled POC Glucometer Random Glucose Cancelled Calcium Cancelled Total Bilirubin Cancelled AST Cancelled ALT Cancelled Alkaline Phosphatase Cancelled Ammonia Creatine Kinase Troponin I Total Protein Cancelled Albumin Cancelled Beta-Hydroxybutyrate Urine Color Urine Appearance Urine pH Ur Specific [place] Urine Protein Urine Glucose (UA) Urine Ketones Urine Blood Urine Nitrite Urine Bilirubin Urine Urobilinogen Ur Leukocyte Esterase Urine WBC (Auto) Urine RBC (Auto) Urine Casts (Auto) U Epithel Cells (Auto) Urine Bacteria (Auto) 08/17/19 08/17/19 08/17/19 04:36 05:54 05:54 WBC 3.4 L RBC 3.18 L Hgb 9.9 L Hct 29.5 L MCV 92.5 MCH 31.1 MCHC 33.6 RDW 16.8 H Plt Count 125 L MPV 8.9 Absolute Neuts (auto) 2.5 Neutrophils % 72.2 Lymphocytes % 12.0 Monocytes % 10.4 H Eosinophils % 4.3 Basophils % 1.1 Nucleated RBC % 0 VBG pH POC VBG pCO2 POC VBG pO2 VBG HCO3 VBG O2 Sat (Armen) VBG Base Excess Sodium Potassium Chloride Carbon Dioxide Anion Gap BUN Creatinine Est GFR (CKD-EPI)AfAm Est GFR (CKD-EPI)NonAf POC Glucometer 571 Random Glucose Calcium Total Bilirubin AST ALT Alkaline Phosphatase Ammonia < 10.00 L Creatine Kinase Troponin I Total Protein Albumin Beta-Hydroxybutyrate Urine Color Urine Appearance Urine pH Ur Specific [place] Urine Protein Urine Glucose (UA) Urine Ketones Urine Blood Urine Nitrite Urine Bilirubin Urine Urobilinogen Ur Leukocyte Esterase Urine WBC (Auto) Urine RBC (Auto) Urine Casts (Auto) U Epithel Cells (Auto) Urine Bacteria (Auto) Imaging - Results Chest X-ray: Image Reviewed Cat Scan: Report Reviewed, Image Reviewed EKG: Image Reviewed Problem List - Problems (1) Chest pain Assessment/Plan: r/o ACS HEART Score 4 Serial Enzymes Chest Xray- no significant change from 07/14/19 Appreciate Cardiology consult Echo 07/24/19- lvsf normal, EF 55-60%, mild mitral thickening, mild mr, no pericardial effusion Asa Monitor CBC, BMP Monitor vitals Code(s): R07.9 - CHEST PAIN, UNSPECIFIED (2) SOB (shortness of breath) on exertion Assessment/Plan: Likely secondary to Uncontrolled DM vs ACS See above Code(s): R06.02 - SHORTNESS OF BREATH (3) Uncontrolled diabetes mellitus Assessment/Plan: sub optimal AG 16 Beta Hydroxybutyrate 57.7 BGMs ISS Continue Levemir Appreciate Endocrinology consult Monitor BMP closely Code(s): E11.65 - TYPE 2 DIABETES MELLITUS WITH HYPERGLYCEMIA (4) ESRD (end stage renal disease) Assessment/Plan: HD- M,W,F Appreciate Nephrology consult for HD Management Chest Xray- reviewed no acute process Cr 2.7, improved from baseline (3.0-4.2) Continue home meds when verified Code(s): N18.6 - END STAGE RENAL DISEASE (5) Anemia Assessment/Plan: stable Likely secondary to ESRD Hgb 10.4 at baseline Monitor CBC Will transfuse if HGB < 7.0 Code(s): D64.9 - ANEMIA, UNSPECIFIED Qualifiers: Vitamin B12 deficiency anemia type: intrinsic factor deficiency (6) HTN (hypertension) Assessment/Plan: stable Monitor BP Continue home meds Monitor renal function Code(s): I10 - ESSENTIAL (PRIMARY) HYPERTENSION (7) Neuropathic pain, leg, bilateral Assessment/Plan: Continue Gabapentin Code(s): G57.93 - UNSPECIFIED MONONEUROPATHY OF BILATERAL LOWER LIMBS Assessment/Plan 53 y/o man admitted to Telemetry for Chest Pain and Uncontrolled Diabetes for further evaluation of their emergent condition. Plan: See Problem List FEN Fluid Restriction 1L Replete lytes, calcium corrected 9.0 Diabetic, Low Na, Renal Diet DVT ppx OOB SCDs Heparin SQ Dispo: Requires Inpatient Care Visit type - Emergency Visit Emergency Visit: Yes ED Registration Date: 08/16/19 Care time: The patient presented to the Emergency Department on the above date and was hospitalized for further evaluation of their emergent condition. - New Patient This patient is new to me today: Yes Date on this admission: 08/17/19 - Critical Care Critical Care patient: No
[2019-08-17] MEDS ORDERED: INSULIN (NOVOLOG) ASPART 100 UNITS/ML 10ML VIAL SQ ONE (04:49)
[2019-08-17 06:31] LABS: BASO % 1.1 % (0-2.0); EOS % 4.3 % (0-4.5); HEMATOCRIT 29.5 % (35.4-49); HEMOGLOBIN 9.9 GM/dL (11.7-16.9); MCH 31.1 pg (25.7-33.7); MCHC 33.6 g/dl (32.0-35.9); MEAN CELL VOLUME 92.5 fl (80-96); MEAN PLT VOLUME 8.9 fl (7.5-11.1); MONO % 10.4 % (3.8-10.2); NEUT % 72.2 % (42.8-82.8); PLATELET COUNT 125 K/MM3 (134-434); RBC 3.18 M/mm3 (4.00-5.60); RDW 16.8 % (11.9-15.9); WHITE BLOOD COUNT 3.4 K/mm3 (4.0-10.0)
[2019-08-17 07:00] LABS: BLOOD UREA NITROGEN 17.9 mg/dL (7-18); CALCIUM 8.2 mg/dL (8.5-10.1); CREATININE 3.3 mg/dL (0.55-1.3); PHOSPHOROUS 2.3 mg/dL (2.5-4.9); POTASSIUM 3.7 mmol/L (3.5-5.1)
[2019-08-17] MEDS: INSULIN SLIDING SCALE (NOVOLOG) 1 VIAL SQ SCH ×3 (08:26→18:56)
[2019-08-17] MEDS ORDERED: amLODIPine BESYLATE 5 MG TABLET (FP) ONE (09:30)
[2019-08-17] MEDS ORDERED: CARVEDILOL 12.5 MG TABLET (FP) ONE ×2 (09:30→23:57)
[2019-08-17] MEDS ORDERED: VALSARTAN 80 MG TABLET (UD) ONE (09:31)
[2019-08-17] MEDS ORDERED: GABAPENTIN 100 MG CAPSULE ONE ×2 (09:31→23:57)
[2019-08-17] MEDS: VALSARTAN 160 MG TABLET (UD) PO SCH (09:36)
[2019-08-17] MEDS: CARVEDILOL 12.5 MG TABLET (FP) PO SCH (09:36)
[2019-08-17] MEDS: HEPARIN NA (PORCINE) 5,000 UNITS/ML 1ML VIAL SQ SCH (09:36)
[2019-08-17] MEDS: amLODIPine BESYLATE 10 MG TABLET (FP) PO SCH (09:56)
[2019-08-17] MEDS: GABAPENTIN 100 MG CAPSULE PO SCH (09:56)
--- NOTE | 2019-08-17 13:33 | PN ---
Progress Note, Physician Chief Complaint: AWAKE ALERT EVENTS AND NOTES REVIEWED - Current Medication List Current Medications: Active Medications Amlodipine Besylate (Norvasc -) 10 mg PO DAILY [facility] Last Admin: 08/17/19 09:56 Dose: 10 mg Carvedilol (Coreg -) 12.5 mg PO BID [facility] Last Admin: 08/17/19 09:36 Dose: 12.5 mg Gabapentin (Neurontin -) 100 mg PO DAILY [facility] Last Admin: 08/17/19 09:56 Dose: 100 mg Gabapentin (Neurontin -) 300 mg PO HS [facility] Heparin Sodium (Porcine) (Heparin -) 5,000 unit SQ BID [facility] Last Admin: 08/17/19 09:36 Dose: 5,000 unit Insulin Aspart (Novolog Vial Sliding Scale -) 1 vial SQ [facility]; Protocol Last Admin: 08/17/19 12:06 Dose: 10 units Insulin Detemir (Levemir Vial) 10 units SQ HS [facility] Valsartan (Diovan -) 160 mg PO DAILY [facility] Last Admin: 08/17/19 09:36 Dose: 160 mg - Objective Vital Signs: Vital Signs Temperature 97.6 F 08/16/19 21:19 Pulse Rate 84 08/17/19 09:33 Respiratory Rate 16 08/17/19 09:33 Blood Pressure 188/85 H 08/17/19 09:33 O2 Sat by Pulse Oximetry (%) 97 08/17/19 09:33 Constitutional: Yes: Mild Distress Eyes: Yes: WNL HENT: Yes: WNL Neck: Yes: WNL Cardiovascular: Yes: Regular Rate and Rhythm Respiratory: Yes: WNL Gastrointestinal: Yes: WNL Genitourinary: Yes: Other Extremities: Yes: WNL Edema: Yes Edema: LLE: Trace, RLE: Trace Peripheral Pulses WNL: Yes Integumentary: Yes: WNL Wound/Incision: Yes: Clean/Dry Neurological: Yes: Pre-Existing Deficit ...Motor Strength: LLE, RLE Psychiatric: Yes: Other Labs: CBC, BMP 08/17/19 05:54 08/17/19 05:54 Problem List - Problems (1) Chest pain Code(s): R07.9 - CHEST PAIN, UNSPECIFIED (2) ESRD (end stage renal disease) Code(s): N18.6 - END STAGE RENAL DISEASE (3) Neuropathic pain, leg, bilateral Code(s): G57.93 - UNSPECIFIED MONONEUROPATHY OF BILATERAL LOWER LIMBS (4) Anemia Code(s): D64.9 - ANEMIA, UNSPECIFIED Qualifiers: Vitamin B12 deficiency anemia type: intrinsic factor deficiency (5) Diabetes mellitus Code(s): E11.9 - TYPE 2 DIABETES MELLITUS WITHOUT COMPLICATIONS Assessment/Plan ESRD ON HD PER NEPHROLOGY CHEST PAIN WORK UP WITH H/O CAD CARDIO EVAL CARDIAC ENZYME CHECK PAIN CONTROL DVT PROPHYLAXIS
--- NOTE | 2019-08-17 15:26 | CON.NEP ---
Consult Consult Specialty:: nephrology Reason for Consultation:: esrd - History of Present Illness Chief Complaint: chest pain History of Present Illness: This is a 53 y/o man with a significant PMHx of T1DM, ESRD (M,W,F), [place] s/p cardiac catheterization (no Stent), Diabetic Gastroparesis, bilateral LE Neuropathy, recent hospitalizations for ACS 07/12-07/19, 07/25-07/26. Who presents to the ED for chest pain radiating to his neck/ R-arm x 1 day with SOB. Patient describes the pain as "stabbing" which radiates to his neck and R- arm. He states it was a constant burning lasting for 4 hrs- now resolved. Patient also reports having yellow loose diarrhea. He reports having high blood glucose readings at home > 700. He reports taking his medications as prescribed. Patient denies fever, chills, cough, dizziness, HAY[place]OD, palpitations, AP , N/V, constipation, dysuria. He states that he thought he had DKA again since he has had it so many times before. Still in the ED does not feel well. He is dialyzed in the [facility] and was dialyzed yesterday. - History Source History Provided By: Patient, Medical Record Limitations to Obtaining History: No Limitations - Past Medical History Cardio/Vascular: Yes: CAD, HTN, [place] Renal/: Yes: Renal Failure, Hemodialysis Endocrine: Yes: Diabetes Mellitus - Alcohol/Substance Use Hx Alcohol Use: No - Smoking History Smoking history: Never smoked Home Medications - Allergies Allergies/Adverse Reactions: Allergies Allergy/AdvReac Type Severity Reaction Status Date / Time No Known Allergies Allergy Verified 08/16/19 21:23 - Home Medications Home Medications: Ambulatory Orders Amlodipine Besylate 10 mg PO DAILY 07/24/19 Aspirin 81 mg PO DAILY 07/24/19 Carvedilol 12.5 mg PO BID 07/24/19 Clopidogrel Bisulfate [Clopidogrel] 75 mg PO DAILY 07/24/19 Famotidine 20 mg PO DAILY 07/24/19 Folic Acid 1 mg PO DAILY 07/24/19 Gabapentin 100 mg PO DAILY 07/24/19 Gabapentin 300 mg PO HS 07/24/19 Insulin Aspart [Novolog] 10 unit SQ HS 07/24/19 Insulin Regular, Human [Humulin R U-500 Kwikpen] unit SQ TID 07/24/19 Sodium Bicarbonate - 1,950 mg PO TID 07/24/19 Valsartan 160 mg PO DAILY 07/24/19 Review of Systems - Review of Systems Constitutional: reports: Weakness Eyes: reports: No Symptoms HENT: reports: No Symptoms Neck: reports: No Symptoms Cardiovascular: reports: Chest Pain Respiratory: reports: No Symptoms Gastrointestinal: reports: Abdominal Pain Genitourinary: reports: No Symptoms Breasts: reports: No Symptoms Reported Musculoskeletal: reports: No Symptoms Integumentary: reports: No Symptoms Neurological: reports: No Symptoms Endocrine: reports: No Symptoms Hematology/Lymphatic: reports: No Symptoms Psychiatric: reports: No Symptoms Nephrology Consult - Height Height: 5 ft 6 in - Weight Weight: 165 lb - BMI Body Mass Index (BMI): 26.6 - Lab Results CBC,BMP: CBC, BMP 08/17/19 05:54 08/17/19 05:54 Anion Gap: Anion Gap Anion Gap 17 MMOL/L (8-16) H 08/17/19 05:54 - Imaging X-ray: Report Reviewed Cat Scan: Report Reviewed - Physical Examination Vital Signs: Vital Signs Temperature 97.6 F 08/16/19 21:19 Pulse Rate 84 08/17/19 09:33 Respiratory Rate 16 08/17/19 09:33 Blood Pressure 188/85 H 08/17/19 09:33 O2 Sat by Pulse Oximetry (%) 97 08/17/19 09:33 Constitutional: Yes: Well Nourished, No Distress, Calm Eyes: Yes: Conjunctiva Clear, EOM Intact HENT: Yes: Atraumatic, Normocephalic Neck: Yes: Supple, Trachea Midline Cardiovascular: Yes: Regular Rate and Rhythm Respiratory: Yes: Regular, CTA Bilaterally Gastrointestinal: Yes: Normal Bowel Sounds, Soft Renal/: Yes: WNL Access for Hemodialysis: Permacath Musculoskeletal: Yes: WNL Extremities: Yes: WNL Edema: No Wound/Incision: Yes: Clean/Dry, Well Approximated Neurological: Yes: Alert, Oriented Psychiatric: Yes: Alert, Oriented Assessment/Plan IMPRESSION esrd chest pain in patient with esrd htn metabolic alkalosis maybe from dialysis PLAN will plan on dialyzing on Sunday 08/19 cardiology coleman ROCHA
--- NOTE | 2019-08-17 16:13 | CON.CARD ---
Consult Consult Specialty:: Cardiology Reason for Consultation:: Chest pain - History of Present Illness Chief Complaint: Chest pain. right neck pain History of Present Illness: This is a 53 year old male with type 1 DM, HTN, ESrd on HD. He has known CAD, he was admitted for an ACS from 07/12/18 - 07/19/18. He had a cardiac cath at [facility] recently but apparently did not receive a stent. He presents now to the ED with chest burning that radiated to the right side of his neck and to his right arm. Presently he is CP free. The pain occurred during dialysis. Troponins 0.02, 0.04, 0.05. EKG NSR with NSSTTW changes Echocardiogram 07/26/19: Normal LV function Moderate LVH Mild MR Calcified AoV. - Past Medical History Cardio/Vascular: Yes: CAD, HTN, [place] Renal/: Yes: Renal Failure, Hemodialysis Endocrine: Yes: Diabetes Mellitus - Alcohol/Substance Use Hx Alcohol Use: No - Smoking History Smoking history: Never smoked Home Medications - Allergies Allergies/Adverse Reactions: Allergies Allergy/AdvReac Type Severity Reaction Status Date / Time No Known Allergies Allergy Verified 08/16/19 21:23 - Home Medications Home Medications: Ambulatory Orders Amlodipine Besylate 10 mg PO DAILY 07/24/19 Aspirin 81 mg PO DAILY 07/24/19 Carvedilol 12.5 mg PO BID 07/24/19 Clopidogrel Bisulfate [Clopidogrel] 75 mg PO DAILY 07/24/19 Famotidine 20 mg PO DAILY 07/24/19 Folic Acid 1 mg PO DAILY 07/24/19 Gabapentin 100 mg PO DAILY 07/24/19 Gabapentin 300 mg PO HS 07/24/19 Insulin Aspart [Novolog] 10 unit SQ HS 07/24/19 Insulin Regular, Human [Humulin R U-500 Kwikpen] unit SQ TID 07/24/19 Sodium Bicarbonate - 1,950 mg PO TID 07/24/19 Valsartan 160 mg PO DAILY 07/24/19 Vital Signs: Vital Signs Temperature 97.6 F 08/16/19 21:19 Pulse Rate 84 08/17/19 09:33 Respiratory Rate 16 08/17/19 09:33 Blood Pressure 188/85 H 08/17/19 09:33 O2 Sat by Pulse Oximetry (%) 97 08/17/19 09:33 Constitutional: Yes: No Distress Eyes: Yes: WNL HENT: Yes: WNL Neck: Yes: Rigid Respiratory: Yes: WNL Gastrointestinal: Yes: Normal Bowel Sounds Cardiovascular: Yes: Regular Rate and Rhythm Heart Sounds: Yes: S1, S2 Edema: No Neurological: Yes: Alert, Oriented - Other Data Labs, Other Data: CBC, BMP 08/17/19 05:54 08/17/19 05:54 Troponin, BNP 08/16/19 08/17/19 08/17/19 22:54 05:54 12:15 Troponin I 0.02 0.04 0.05 Troponin, BNP 08/16/19 08/17/19 08/17/19 22:54 05:54 12:15 Troponin I 0.02 0.04 0.05 Assessment/Plan 53 year old male with type 1 DM, HTN, ESrd on HD. He has known CAD, he was admitted for an ACS from 07/12/18 - 07/19/18. He had a cardiac cath at [facility] recently but apparently did not receive a stent. He presents now to the ED with chest burning that radiated to the right side of his neck and to his right arm. Presently he is CP free. The pain occurred during dialysis. Troponins 0.02, 0.04, 0.05. EKG NSR with NSSTTW changes Echocardiogram 07/26/19: Normal LV function Moderate LVH Mild MR Calcified AoV. Chest Pain Is atypical and may be non cardiac Would review recent cath from [facility] if available Contiue: Carvedilol 12.5 mg PO BID Aspirin 81 mg PO DAILY Clopidogrel Bisulfate [Clopidogrel] 75 mg PO DAILY HTN Continue: Amlodipine Besylate 10 mg PO DAILY Valsartan 160 mg PO DAILY 07/24/19
[2019-08-17] MEDS ORDERED: INSULIN (NOVOLOG) ASPART 100 UNITS/ML 10ML VIAL ONE (18:48)
--- NOTE | 2019-08-17 23:18 | EKG ---
Test Reason : Blood Pressure : / mmHG Vent. Rate : 086 BPM Atrial Rate : 086 BPM P-R Int : 160 ms QRS Dur : 110 ms QT Int : 420 ms P-R-T Axes : 062 020 000 degrees QTc Int : 502 ms NORMAL SINUS RHYTHM POSSIBLE LEFT ATRIAL ENLARGEMENT PROLONGED QT ABNORMAL ECG WHEN COMPARED WITH ECG OF 25-JUL-2019 15:18, T WAVE VARIATION Confirmed by VERITO CA MD ([id number]) on 08/17/2019 11:17:38 PM Referred By: Confirmed By:VERITO CA MD
[2019-08-17] MEDS ORDERED: INSULIN (LEVEMIR) 100 UNITS/ML UNITS SQ ONE (23:57)
[2019-08-17] MEDS ORDERED: HEPARIN NA (PORCINE) 5,000 UNITS/ML 1ML VIAL ONE (23:58)
[2019-08-18] MEDS: GABAPENTIN 300 MG CAPSULE PO SCH ×2 (00:08→21:23)
[2019-08-18] MEDS: HEPARIN NA (PORCINE) 5,000 UNITS/ML 1ML VIAL SQ SCH ×3 (00:08→21:23)
[2019-08-18] MEDS: CARVEDILOL 12.5 MG TABLET (FP) PO SCH ×3 (00:08→21:23)
[2019-08-18] MEDS: INSULIN (LEVEMIR) 100 UNITS/ML UNITS SQ SCH ×2 (00:09→21:22)
[2019-08-18] MEDS: INSULIN SLIDING SCALE (NOVOLOG) 1 VIAL SQ SCH ×6 (00:09→21:23)
[2019-08-18] MEDS ORDERED: GlUCAGON HUMAN RECOMBINANT 1 MG/VIAL ONE (09:01)
[2019-08-18] MEDS ORDERED: DEXTROSE 50%-WATER - 25 GM/50 ML VIAL ONE (09:02)
[2019-08-18] MEDS ORDERED: DEXTROSE 50%-WATER - 25 GM/50 ML VIAL IVPUSH ONE ×2 (09:09→11:48)
--- NOTE | 2019-08-18 10:53 | PN ---
Progress Note, Physician - Current Medication List Current Medications: Active Medications Amlodipine Besylate (Norvasc -) 10 mg PO DAILY [facility] Last Admin: 08/17/19 09:56 Dose: 10 mg Carvedilol (Coreg -) 12.5 mg PO BID [facility] Last Admin: 08/18/19 00:08 Dose: 12.5 mg Gabapentin (Neurontin -) 100 mg PO DAILY [facility] Last Admin: 08/17/19 09:56 Dose: 100 mg Gabapentin (Neurontin -) 300 mg PO HS [facility] Last Admin: 08/18/19 00:08 Dose: 300 mg Heparin Sodium (Porcine) (Heparin -) 5,000 unit SQ BID [facility] Last Admin: 08/18/19 00:08 Dose: 5,000 unit Insulin Aspart (Novolog Vial Sliding Scale -) 1 vial SQ [facility]; Protocol Last Admin: 08/18/19 07:40 Dose: 12 units Insulin Detemir (Levemir Vial) 10 units SQ [facility] Last Admin: 08/18/19 00:09 Dose: 10 unit Valsartan (Diovan -) 160 mg PO DAILY [facility] Last Admin: 08/17/19 09:36 Dose: 160 mg - Objective Vital Signs: Vital Signs Temperature 97.6 F 08/16/19 21:19 Pulse Rate 69 08/18/19 04:48 Respiratory Rate 18 08/18/19 04:48 Blood Pressure 171/89 H 08/18/19 04:48 O2 Sat by Pulse Oximetry (%) 98 08/18/19 04:49 Labs: CBC, BMP 08/17/19 05:54 08/17/19 05:54 Problem List - Problems (1) Chest pain Code(s): R07.9 - CHEST PAIN, UNSPECIFIED (2) ESRD (end stage renal disease) Code(s): N18.6 - END STAGE RENAL DISEASE (3) Neuropathic pain, leg, bilateral Code(s): G57.93 - UNSPECIFIED MONONEUROPATHY OF BILATERAL LOWER LIMBS (4) Anemia Code(s): D64.9 - ANEMIA, UNSPECIFIED Qualifiers: Vitamin B12 deficiency anemia type: intrinsic factor deficiency (5) Diabetes mellitus Code(s): E11.9 - TYPE 2 DIABETES MELLITUS WITHOUT COMPLICATIONS
[2019-08-18] MEDS: amLODIPine BESYLATE 10 MG TABLET (FP) PO SCH (12:27)
[2019-08-18] MEDS: VALSARTAN 160 MG TABLET (UD) PO SCH (12:27)
[2019-08-18] MEDS: GABAPENTIN 100 MG CAPSULE PO SCH (12:27)
--- NOTE | 2019-08-18 13:14 | PN ---
Progress Note (short form) - Note Progress Note: RENAL Pt is awake and alert has had hypoglycemic episodes fels well and is bale to have conversation but falls asleep Last Vital Signs Temp Pulse Resp BP Pulse Ox 97.6 F 69 18 171/89 H 98 08/16/19 21:19 08/18/19 04:48 08/18/19 04:48 08/18/19 04:48 08/18/19 04:49 lungs clear cvs s1s2 rr abd soft ext -edema neuro a+ox3, somnolent skin no rash CBC, BMP 08/17/19 05:54 08/17/19 05:54 Current Medications Generic Name Dose Route Start Last Admin Trade Name Freq PRN Reason Stop Dose Admin Amlodipine Besylate 10 mg 08/17/19 10:00 08/18/19 12:27 Norvasc - PO 10 mg DAILY ELIZA Administration Carvedilol 12.5 mg 08/17/19 10:00 08/18/19 12:27 Coreg - PO 12.5 mg BID ELIZA Administration Gabapentin 100 mg 08/17/19 10:00 08/18/19 12:27 Neurontin - PO 100 mg DAILY [facility]A Administration Gabapentin 300 mg 08/17/19 22:00 08/18/19 00:08 Neurontin - PO 300 mg HS [facility]IZA Administration Heparin Sodium (Porcine) 5,000 unit 08/17/19 10:00 08/18/19 12:27 Heparin - SQ 5,000 unit BID [facility]IZA Administration Insulin Aspart 1 vial 08/17/19 07:00 08/18/19 07:40 Novolog Vial Sliding Scale - SQ 12 units ACHS ELIZA Administration Protocol Insulin Detemir 10 units 08/17/19 22:00 08/18/19 00:09 Levemir Vial SQ 10 unit HS [facility]A Administration Valsartan 160 mg 08/17/19 10:00 08/18/19 12:27 Diovan - PO 160 mg DAILY [facility] Administration IMPRESSION esrd chest pain in patient with esrd- better htn metabolic alkalosis maybe from dialysis hypoglycemia now better PLAN will plan on dialyzing tomorrow 08/19 cardiology eval noted ok to get d5 1/2 ns. Monitor glucose and dc fluids if persistently above 160 MV
--- NOTE | 2019-08-18 14:24 | CONSULT ---
Consultation: REQUESTING PROVIDER: Dr. Sharma CONSULT REQUEST: We have been asked to medically evaluate this patient for repeated hypoglycemic episodes/ HISTORY OF PRESENT ILLNESS: This is a 53 year old male with PMH significant for T1DM, diabetic gastroparesis, bilateral lower extremity neuropathy, ESRD (on HD since 3 weeks, M, W, F), MS sp cardiac catheterization, and recent hospitalizations for ACS 07/12-07/19, 07/25-07/26. He presented to the ER on 08/16 with complaints of confusion, disorientation, and a burning chest pain radiating to his neck and right arm and SOB for 1 day. The pain resolved within 4 hours, but the disorientation persisted. He states the confusion began during his HD session on Monday, after which he presented to the ER. He denies fever, chills, headfaches, palpitations, cough, nausea, vomiting, diarrhea, abdominal pain, constipation, dysuria, hematuria, or polyruia. He takes Novolog and 10 units of Lantus in the evenings at home. He has been admitted 9 times for DKA in the past, with his most recent admission 1 year ago. He started dialysis 3 weeks ago because of "heart related issues" as per the patient. He states that he has had 5 "clots" in his heart in the past. His past surgical history is significant for C5, C6 fusion of vertebrae and a tonsillectomy, but no other surgeries. He is currently unemployed, watches his diet, and does not smoke cigarettes, drink alcohol, or consume recreational drugs. REVIEW OF SYSTEMS: CONSTITUTIONAL: disorientation Absent: fever, chills, diaphoresis, generalized weakness, malaise, loss of appetite, weight change HEENT: Absent: rhinorrhea, nasal congestion, throat pain, throat swelling, difficulty swallowing, mouth swelling, ear pain, eye pain, visual changes CARDIOVASCULAR: Absent: chest pain, syncope, palpitations, irregular heart rate, lightheadedness, peripheral edema RESPIRATORY: Absent: cough, shortness of breath, dyspnea with exertion, orthopnea, wheezing, stridor, hemoptysis GASTROINTESTINAL: Absent: abdominal pain, abdominal distension, nausea, vomiting, diarrhea, constipation, melena, hematochezia GENITOURINARY: Absent: dysuria, frequency, urgency, hesitancy, hematuria, flank pain, genital pain MUSCULOSKELETAL: Absent: myalgia, arthralgia, joint swelling, back pain, neck pain SKIN: Absent: rash, itching, pallor HEMATOLOGIC/IMMUNOLOGIC: Absent: easy bleeding, easy bruising, lymphadenopathy, frequent infections ENDOCRINE: Absent: unexplained weight gain, unexplained weight loss, heat intolerance, cold intolerance NEUROLOGIC: Absent: headache, focal weakness or paresthesias, dizziness, unsteady gait, seizure, mental status changes, bladder or bowel incontinence PSYCHIATRIC: Absent: anxiety, depression, suicidal or homicidal ideation, hallucinations. PHYSICAL EXAMINATION Vital Signs - 24 hr 08/18/19 08/18/19 08/18/19 00:10 04:48 04:49 Pulse Rate [ 75 69 Left] Respiratory 20 18 Rate Blood Pressure 198/90 H 171/89 H [Right Arm] O2 Sat by Pulse 97 98 98 Oximetry (%) 08/18/19 13:35 Pulse Rate [ 62 Left] Respiratory 20 Rate Blood Pressure 152/91 [Right Arm] O2 Sat by Pulse 100 Oximetry (%) GENERAL: Middle aged male lying in bed, AOx3 but lethargic, kept falling asleep during our conversation HEAD: Normal with no signs of trauma. EYES: SAAD, EOMI, no scleral icterus EARS, NOSE, THROAT: Moist mucus membranes LUNGS: Clear B/L. No wheezes, and no crackles. No accessory muscle use. HEART: RRR, normal S1 and S2 without murmur, rub or gallop. ABDOMEN: Soft, nontender, not distended MUSCULOSKELETAL: Normal range of motion at all joints. No bony deformities or tenderness. No CVA tenderness. LOWER EXTREMITIES: 2+ pulses, warm, well-perfused. No calf tenderness. No peripheral edema. NEUROLOGICAL: Motor 5/5, sensations intact B/L PSYCHIATRIC: Cooperative. Good eye contact. Appropriate mood and affect. SKIN: Warm, dry, normal turgor, no rashes or lesions noted. Laboratory Results - last 24 hr 08/17/19 08/17/19 08/17/19 05:48 17:26 23:59 POC Glucometer 370 340 Hemoglobin A1c % 9.0 H 08/18/19 08/18/19 08/18/19 09:00 09:11 11:44 POC Glucometer 32 137 43 Hemoglobin A1c % 08/18/19 08/18/19 08/18/19 11:58 12:15 13:24 POC Glucometer 181 163 220 Hemoglobin A1c % Active Medications Generic Name Dose Route Start Last Admin Trade Name Jairo PRN Reason Stop Dose Admin Amlodipine Besylate 10 mg 08/17/19 10:00 08/18/19 12:27 Norvasc - PO 10 mg DAILY ELIZA Administration Carvedilol 12.5 mg 08/17/19 10:00 08/18/19 12:27 Coreg - PO 12.5 mg BID ELIZA Administration Gabapentin 100 mg 08/17/19 10:00 08/18/19 12:27 Neurontin - PO 100 mg DAILY ELIZA Administration Gabapentin 300 mg 08/17/19 22:00 08/18/19 00:08 Neurontin - PO 300 mg HS ELIZA Administration Heparin Sodium (Porcine) 5,000 unit 08/17/19 10:00 08/18/19 12:27 Heparin - SQ 5,000 unit BID ELIZA Administration Heparin Sodium (Porcine) 1,000 unit 08/18/19 13:14 Heparin - IVPUSH 08/18/19 13:15 ONCE ONE Sodium Chloride 250 mls @ 3,000 mls/hr 08/18/19 13:14 Normal Saline - IV 08/19/19 13:14 PRN PRN Hypotension during Dialysis Insulin Aspart 1 vial 08/17/19 07:00 08/18/19 13:21 Novolog Vial Sliding Scale - SQ Not Given ACHS [facility] Protocol Insulin Detemir 10 units 08/17/19 22:00 08/18/19 00:09 Levemir Vial SQ 10 unit HS ELIZA Administration Valsartan 160 mg 08/17/19 10:00 08/18/19 12:27 Diovan - PO 160 mg DAILY ELIZA Administration ASSESSMENT/PLAN: 53M with PMH of T1DM, ESRD, MS (s/p cardiac catheterization in 07/30). He presented to the ER on 08/16 with confusion, chest pain and SOB for 1 day. He was admitted for management of suspected DKA after he was found to have POC Glucose of 396 and an AG of 17. on 08/18 he was found to have repeatedly low BG (under 50) despite administration of 2 amps dextrose, and was admitted to the ICU for critical monitoring. #Neuro - Lethargic, feels drowsy, AOx3 - CT Head: No acute intracranial pathology noted #Respiratory - Currently not complaining of any SOB - CXR 08/16: Minimal platelike atelectasis at left base #CVS - EKG: NSR with non specific ST and T wave changes - Trop 0.02 -> 0.04 -> 0.05 -> pending - Echo 07/30: Normal LV function, mod LVH, mild MR, calcified AoV. - Cardio recs: Contiue Carvedilol 12.5 mg, Aspirin 81 mg, Clopidogrel] 75 mg - Hx of HTN: Continue Amlodipine 10 mg, Valsartan 160 mg #Endo - Hx of T1DM and repeated DKA episodes - BGM, Novolog ISS and Levemir 10 units - Beta hydroxybutyrate 57.7 on presentation, repeat pending - Anion gap 17 - HbA1c 9.0 #Renal - Hx of ESRD - Cr 2.7 -> 3.3 - UA: 4+ Protein, 3+ Glucose, 1+ Ketones - Renal recs: plan for HD 08/19, D5 in 1/2 N/S, metabolic alkalosis maybe from dialysis #FEN - D5 in 1/2 N/S - Diabetic Diet #Prophylaxis - Heparin 5000 SQ BID #Dispo - Admit to ICU - We will continue to follow the patient. Thank you for this consultative oppo rtunity. Visit type - Emergency Visit Emergency Visit: Yes ED Registration Date: 08/17/19 Care time: The patient presented to the Emergency Department on the above date and was hospitalized for further evaluation of their emergent condition. - New Patient This patient is new to me today: Yes Date on this admission: 08/21/19 - Critical Care Critical Care patient: Yes Total Critical Care Time (in minutes): 37 Critical Care Statement: The care of this patient involved high complexity decision making to prevent further life threatening deterioration of the patient's condition and/or to evaluate & treat vital organ system(s) failure or risk of failure. ATTENDING PHYSICIAN STATEMENT I saw and evaluated the patient. I reviewed the resident's note and discussed the case with the resident. I agree with the resident's findings and plan as documented. SUBJECTIVE: OBJECTIVE: ASSESSMENT AND PLAN:
--- NOTE | 2019-08-18 15:21 | PN ---
Progress Note, Physician Chief Complaint: Presently comfortable History of Present Illness: This is a 53 year old male with type 1 DM, HTN, ESrd on HD. He has known CAD, he was admitted for an ACS from 07/12/18 - 07/19/18. He had a cardiac cath at [facility] recently but apparently did not receive a stent. He presents now to the ED with chest burning that radiated to the right side of his neck and to his right arm. Presently he is CP free. The pain occurred during dialysis. Troponins 0.02, 0.04, 0.05. EKG NSR with NSSTTW changes Echocardiogram 07/26/19: Normal LV function Moderate LVH Mild MR Calcified AoV. - Current Medication List Current Medications: Active Medications Amlodipine Besylate (Norvasc -) 10 mg PO DAILY [facility] Last Admin: 08/18/19 12:27 Dose: 10 mg Carvedilol (Coreg -) 12.5 mg PO BID [facility] Last Admin: 08/18/19 12:27 Dose: 12.5 mg Gabapentin (Neurontin -) 100 mg PO DAILY [facility] Last Admin: 08/18/19 12:27 Dose: 100 mg Gabapentin (Neurontin -) 300 mg PO HS [facility] Last Admin: 08/18/19 00:08 Dose: 300 mg Heparin Sodium (Porcine) (Heparin -) 5,000 unit SQ BID [facility] Last Admin: 08/18/19 12:27 Dose: 5,000 unit Heparin Sodium (Porcine) (Heparin -) 1,000 unit IVPUSH ONCE ONE Stop: 08/18/19 13:15 Sodium Chloride (Normal Saline -) 250 mls @ 3,000 mls/hr IV PRN PRN PRN Reason: Hypotension during Dialysis Stop: 08/19/19 13:14 Insulin Aspart (Novolog Vial Sliding Scale -) 1 vial SQ [facility]; Protocol Last Admin: 08/18/19 13:21 Dose: Not Given Insulin Detemir (Levemir Vial) 10 units SQ HS [facility] Last Admin: 08/18/19 00:09 Dose: 10 unit Valsartan (Diovan -) 160 mg PO DAILY [facility] Last Admin: 08/18/19 12:27 Dose: 160 mg - Objective Vital Signs: Vital Signs Temperature 97.6 F 08/16/19 21:19 Pulse Rate 62 08/18/19 13:35 Respiratory Rate 20 08/18/19 13:35 Blood Pressure 152/91 08/18/19 13:35 O2 Sat by Pulse Oximetry (%) 100 08/18/19 13:35 Constitutional: Yes: No Distress Eyes: Yes: WNL HENT: Yes: WNL Neck: Yes: WNL Cardiovascular: Yes: WNL, Regular Rate and Rhythm, S2 Respiratory: Yes: CTA Bilaterally Gastrointestinal: Yes: Soft Extremities: Yes: WNL Edema: No Neurological: Yes: Alert, Oriented (Sleepy) Labs: CBC, BMP 08/17/19 05:54 08/17/19 05:54 Assessment/Plan 53 year old male with type 1 DM, HTN, ESrd on HD. He has known CAD, he was admitted for an ACS from 07/12/18 - 07/19/18. He had a cardiac cath at [facility] recently but apparently did not receive a stent. He presents now to the ED with chest burning that radiated to the right side of his neck and to his right arm. Presently he is CP free. The pain occurred during dialysis. Troponins 0.02, 0.04, 0.05. EKG NSR with NSSTTW changes Echocardiogram 07/26/19: Normal LV function Moderate LVH Mild MR Calcified AoV. Chest Pain Is atypical and may be non cardiac Would review recent cath from [facility] if available No need for ischemia work up at this time hypoglycemia and labile BP are the main issues at this time Contiue: Carvedilol 12.5 mg PO BID Aspirin 81 mg PO DAILY Clopidogrel Bisulfate [Clopidogrel] 75 mg PO DAILY HTN Continue: Amlodipine Besylate 10 mg PO DAILY Valsartan 160 mg PO DAILY 07/24/19 BP 197/89 mmHg, would add hydralazine 50mg PO Q8 hours
[2019-08-18 17:29] LABS: BASO % 0.9 % (0-2.0); EOS % 4.6 % (0-4.5); HEMATOCRIT 35.4 % (35.4-49); HEMOGLOBIN 12.1 GM/dL (11.7-16.9); LYMPH % 10.1 % (8-40); MCH 31.3 pg (25.7-33.7); MCHC 34.2 g/dl (32.0-35.9); MEAN CELL VOLUME 91.6 fl (80-96); MONO % 10.4 % (3.8-10.2); PLATELET COUNT 151 K/MM3 (134-434); RBC 3.87 M/mm3 (4.00-5.60); RDW 17.7 % (11.9-15.9); WHITE BLOOD COUNT 4.7 K/mm3 (4.0-10.0)
[2019-08-18 17:55] LABS: ALBUMIN 3.1 g/dl (3.4-5.0); BILIRUBIN,TOTAL 0.5 mg/dL (0.2-1); BLOOD UREA NITROGEN 19.9 mg/dL (7-18); CALCIUM 8.7 mg/dL (8.5-10.1); CREATININE 4.6 mg/dL (0.55-1.3); MAGNESIUM 2.3 mg/dL (1.8-2.4); PHOSPHOROUS 3.8 mg/dL (2.5-4.9); POTASSIUM 3.7 mmol/L (3.5-5.1); TOT PROT 5.8 g/dl (6.4-8.2)
--- NOTE | 2019-08-18 18:13 | PN ---
Progress Note, Physician Chief Complaint: AWAKE HYPOGLYCEMIA EPISODES X 3 THIS MORNING STARTING IV D5 1/2 NS TRANSFERRING TO ICU - Current Medication List Current Medications: Active Medications Amlodipine Besylate (Norvasc -) 10 mg PO DAILY [facility] Last Admin: 08/18/19 12:27 Dose: 10 mg Carvedilol (Coreg -) 12.5 mg PO BID [facility] Last Admin: 08/18/19 12:27 Dose: 12.5 mg Gabapentin (Neurontin -) 100 mg PO DAILY [facility] Last Admin: 08/18/19 12:27 Dose: 100 mg Gabapentin (Neurontin -) 300 mg PO HS [facility] Last Admin: 08/18/19 00:08 Dose: 300 mg Heparin Sodium (Porcine) (Heparin -) 5,000 unit SQ BID [facility] Last Admin: 08/18/19 12:27 Dose: 5,000 unit Heparin Sodium (Porcine) (Heparin -) 1,000 unit IVPUSH ONCE ONE Stop: 08/18/19 13:15 Hydralazine HCl (Apresoline -) 50 mg PO TID [facility] Sodium Chloride (Normal Saline -) 250 mls @ 3,000 mls/hr IV PRN PRN PRN Reason: Hypotension during Dialysis Stop: 08/19/19 13:14 Insulin Aspart (Novolog Vial Sliding Scale -) 1 vial SQ [facility]; Protocol Last Admin: 08/18/19 17:51 Dose: 10 units Insulin Detemir (Levemir Vial) 10 units SQ [facility] Last Admin: 08/18/19 00:09 Dose: 10 unit Valsartan (Diovan -) 160 mg PO DAILY [facility] Last Admin: 08/18/19 12:27 Dose: 160 mg - Objective Vital Signs: Vital Signs Temperature 98.4 F 08/18/19 17:00 Pulse Rate 79 08/18/19 17:00 Respiratory Rate 20 08/18/19 17:00 Blood Pressure 176/88 H 08/18/19 17:00 O2 Sat by Pulse Oximetry (%) 100 08/18/19 16:00 Constitutional: Yes: Mild Distress Cardiovascular: Yes: Regular Rate and Rhythm Respiratory: Yes: Diminished Gastrointestinal: Yes: Soft Genitourinary: Yes: Other Musculoskeletal: Yes: Muscle Weakness Labs: CBC, BMP 08/18/19 16:55 08/18/19 16:55 Problem List - Problems (1) Chest pain Code(s): R07.9 - CHEST PAIN, UNSPECIFIED (2) ESRD (end stage renal disease) Code(s): N18.6 - END STAGE RENAL DISEASE (3) Neuropathic pain, leg, bilateral Code(s): G57.93 - UNSPECIFIED MONONEUROPATHY OF BILATERAL LOWER LIMBS (4) Anemia Code(s): D64.9 - ANEMIA, UNSPECIFIED Qualifiers: Vitamin B12 deficiency anemia type: intrinsic factor deficiency (5) Diabetes mellitus Code(s): E11.9 - TYPE 2 DIABETES MELLITUS WITHOUT COMPLICATIONS Assessment/Plan TRANSFER TO ICU RENAL/CCU EVAL STARTING D5 1/2 NS 80CC/HR MONITOR BGM Q1H ESRD ON HD MONITOR LABS AND V.S.
[2019-08-18 18:14] LABS: PLATELET ESTIMATE ADEQUATE
[2019-08-18] MEDS: hydrALAZINE HCL 50 MG TABLET (FP) PO SCH ×2 (18:15→21:23)
[2019-08-19] MEDS: hydrALAZINE HCL 50 MG TABLET (FP) PO SCH ×3 (05:36→21:33)
[2019-08-19] MEDS ORDERED: DEXTROSE 50%-WATER - 25 GM/50 ML VIAL IVPUSH ONE (06:43)
[2019-08-19] MEDS ORDERED: DEXTROSE 50%-WATER 25 GM/50 ML DISP.SYRIN ONE (06:44)
[2019-08-19 07:07] LABS: BASO % 0.8 % (0-2.0); EOS % 5.4 % (0-4.5); HEMATOCRIT 33.6 % (35.4-49); HEMOGLOBIN 11.6 GM/dL (11.7-16.9); LYMPH % 14.8 % (8-40); MCH 31.3 pg (25.7-33.7); MCHC 34.6 g/dl (32.0-35.9); MEAN CELL VOLUME 90.4 fl (80-96); MEAN PLT VOLUME 8.7 fl (7.5-11.1); MONO % 11.4 % (3.8-10.2); NEUT % 67.6 % (42.8-82.8); PLATELET COUNT 147 K/MM3 (134-434); RBC 3.71 M/mm3 (4.00-5.60); WHITE BLOOD COUNT 4.7 K/mm3 (4.0-10.0)
[2019-08-19] MEDS: INSULIN SLIDING SCALE (NOVOLOG) 1 VIAL SQ SCH ×4 (07:29→21:33)
[2019-08-19 07:50] LABS: ALBUMIN 2.6 g/dl (3.4-5.0); BILIRUBIN,TOTAL 0.3 mg/dL (0.2-1); BLOOD UREA NITROGEN 22.7 mg/dL (7-18); CALCIUM 8.4 mg/dL (8.5-10.1); CREATININE 4.7 mg/dL (0.55-1.3); MAGNESIUM 2.2 mg/dL (1.8-2.4); PHOSPHOROUS 3.7 mg/dL (2.5-4.9); POTASSIUM 3.2 mmol/L (3.5-5.1)
[2019-08-19] MEDS ORDERED: hydrALAZINE HCL 20 MG/ML VIAL IVPUSH ONE (08:03)
[2019-08-19] MEDS ORDERED: POTASSIUM CHLORIDE TABS 20 MEQ TABLET.ER (FP) PO ONE (09:07)
[2019-08-19] MEDS ORDERED: PT OWN MED DRAWER 7, Y5N ONE (09:45)
--- NOTE | 2019-08-19 09:47 | PN ---
Physical Exam: SUBJECTIVE: Patient seen and examined. Talkative, alert, oriented. Patient states he has been in and out of hospitals for various reasons the last 5 weeks and is concerned about being discharged before his medical conditions are under control. 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 OBJECTIVE: Vital Signs Period Temp Pulse Resp BP Sys/Phipps Pulse Ox Last 24 Hr 98.2 F-98.7 F 62-79 16-20 134-180/86-95 99-100 GENERAL: The patient is awake, alert, and fully oriented, talkative, no acute distress. HEAD: Normal with no signs of trauma. EYES: EOMI, no scleral icterus ENT: moist mucous membranes NECK: Trachea midline LUNGS: Breath sounds equal, clear to auscultation bilaterally, no wheezes, no crackles, no accessory muscle use. HEART: Regular rate and rhythm, S1, S2 without murmur, rub or gallop. ABDOMEN: Soft, nontender, nondistended, normoactive bowel sounds EXTREMITIES: 2+ pulses, warm, well-perfused, no edema on left leg, +trace edema right leg NEUROLOGICAL: Normal speech, gait not observed. SKIN: Warm, dry Laboratory Results - last 24 hr 08/18/19 08/18/19 08/18/19 11:44 11:58 12:15 WBC RBC Hgb Hct MCV MCH MCHC RDW Plt Count MPV Absolute Neuts (auto) Neutrophils % Lymphocytes % Monocytes % Eosinophils % Basophils % Nucleated RBC % Platelet Estimate Platelet Comment Sodium Potassium Chloride Carbon Dioxide Anion Gap BUN Creatinine Est GFR (CKD-EPI)AfAm Est GFR (CKD-EPI)NonAf POC Glucometer 43 181 163 Random Glucose Calcium Phosphorus Magnesium Total Bilirubin AST ALT Alkaline Phosphatase Troponin I Total Protein Albumin Beta-Hydroxybutyrate 08/18/19 08/18/19 08/18/19 13:24 15:34 16:55 WBC 4.7 RBC 3.87 L Hgb 12.1 Hct 35.4 D MCV 91.6 MCH 31.3 MCHC 34.2 RDW 17.7 H Plt Count 151 D MPV 9.0 Absolute Neuts (auto) 3.5 Neutrophils % 74.0 Lymphocytes % 10.1 Monocytes % 10.4 H Eosinophils % 4.6 H Basophils % 0.9 Nucleated RBC % 0 Platelet Estimate Adequate Platelet Comment No clumping noted Sodium Potassium Chloride Carbon Dioxide Anion Gap BUN Creatinine Est GFR (CKD-EPI)AfAm Est GFR (CKD-EPI)NonAf POC Glucometer 220 221 Random Glucose Calcium Phosphorus Magnesium Total Bilirubin AST ALT Alkaline Phosphatase Troponin I Total Protein Albumin Beta-Hydroxybutyrate 08/18/19 08/18/19 08/18/19 16:55 16:55 17:36 WBC RBC Hgb Hct MCV MCH MCHC RDW Plt Count MPV Absolute Neuts (auto) Neutrophils % Lymphocytes % Monocytes % Eosinophils % Basophils % Nucleated RBC % Platelet Estimate Platelet Comment Sodium 133 L Potassium 3.7 Chloride 94 L Carbon Dioxide 29 Anion Gap 10 BUN 19.9 H Creatinine 4.6 H Est GFR (CKD-EPI)AfAm 15.45 Est GFR (CKD-EPI)NonAf 13.33 POC Glucometer 358 Random Glucose 278 H Calcium 8.7 Phosphorus 3.8 Magnesium 2.3 Total Bilirubin 0.5 AST 16 ALT 19 Alkaline Phosphatase 82 Troponin I 0.03 Total Protein 5.8 L Albumin 3.1 L Beta-Hydroxybutyrate 2.7 08/18/19 08/18/19 08/18/19 19:40 21:21 23:28 WBC RBC Hgb Hct MCV MCH MCHC RDW Plt Count MPV Absolute Neuts (auto) Neutrophils % Lymphocytes % Monocytes % Eosinophils % Basophils % Nucleated RBC % Platelet Estimate Platelet Comment Sodium Potassium Chloride Carbon Dioxide Anion Gap BUN Creatinine Est GFR (CKD-EPI)AfAm Est GFR (CKD-EPI)NonAf POC Glucometer 237 198 158 Random Glucose Calcium Phosphorus Magnesium Total Bilirubin AST ALT Alkaline Phosphatase Troponin I Total Protein Albumin Beta-Hydroxybutyrate 08/19/19 08/19/19 08/19/19 01:35 03:40 04:06 WBC RBC Hgb Hct MCV MCH MCHC RDW Plt Count MPV Absolute Neuts (auto) Neutrophils % Lymphocytes % Monocytes % Eosinophils % Basophils % Nucleated RBC % Platelet Estimate Platelet Comment Sodium Potassium Chloride Carbon Dioxide Anion Gap BUN Creatinine Est GFR (CKD-EPI)AfAm Est GFR (CKD-EPI)NonAf POC Glucometer 116 58 83 Random Glucose Calcium Phosphorus Magnesium Total Bilirubin AST ALT Alkaline Phosphatase Troponin I Total Protein Albumin Beta-Hydroxybutyrate 08/19/19 08/19/19 08/19/19 05:25 06:26 06:26 WBC 4.7 RBC 3.71 L Hgb 11.6 L Hct 33.6 L MCV 90.4 MCH 31.3 MCHC 34.6 RDW 18.0 H Plt Count 147 MPV 8.7 Absolute Neuts (auto) 3.2 Neutrophils % 67.6 Lymphocytes % 14.8 D Monocytes % 11.4 H Eosinophils % 5.4 H Basophils % 0.8 Nucleated RBC % 0 Platelet Estimate Platelet Comment Sodium 135 L Potassium 3.2 L Chloride 96 L Carbon Dioxide 29 Anion Gap 10 BUN 22.7 H Creatinine 4.7 H Est GFR (CKD-EPI)AfAm 15.05 Est GFR (CKD-EPI)NonAf 12.99 POC Glucometer 96 Random Glucose 70 L Calcium 8.4 L Phosphorus 3.7 Magnesium 2.2 Total Bilirubin 0.3 AST 14 L ALT 15 Alkaline Phosphatase 67 Troponin I Total Protein 5.0 L Albumin 2.6 L Beta-Hydroxybutyrate 08/19/19 08/19/19 08/19/19 06:42 07:46 09:20 WBC RBC Hgb Hct MCV MCH MCHC RDW Plt Count MPV Absolute Neuts (auto) Neutrophils % Lymphocytes % Monocytes % Eosinophils % Basophils % Nucleated RBC % Platelet Estimate Platelet Comment Sodium Potassium Chloride Carbon Dioxide Anion Gap BUN Creatinine Est GFR (CKD-EPI)AfAm Est GFR (CKD-EPI)NonAf POC Glucometer 66 116 96 Random Glucose Calcium Phosphorus Magnesium Total Bilirubin AST ALT Alkaline Phosphatase Troponin I Total Protein Albumin Beta-Hydroxybutyrate Active Medications Generic Name Dose Route Start Last Admin Trade Name Freq PRN Reason Stop Dose Admin Amlodipine Besylate 10 mg 08/17/19 10:00 08/18/19 12:27 Norvasc - PO 10 mg DAILY ELIZA Administration Carvedilol 12.5 mg 08/17/19 10:00 08/18/19 21:23 Coreg - PO 12.5 mg BID ELIZA Administration Gabapentin 100 mg 08/17/19 10:00 08/18/19 12:27 Neurontin - PO 100 mg DAILY ELIZA Administration Gabapentin 300 mg 08/17/19 22:00 08/18/19 21:23 Neurontin - PO 300 mg HS ELIZA Administration Heparin Sodium (Porcine) 5,000 unit 08/17/19 10:00 08/18/19 21:23 Heparin - SQ 5,000 unit BID ELIZA Administration Heparin Sodium (Porcine) 1,000 unit 08/18/19 13:14 Heparin - IVPUSH 08/18/19 13:15 ONCE ONE Hydralazine HCl 50 mg 08/18/19 15:30 08/19/19 05:36 Apresoline - PO 50 mg TID ELIZA Administration Sodium Chloride 250 mls @ 3,000 mls/hr 08/18/19 13:14 Normal Saline - IV 08/19/19 13:14 PRN PRN Hypotension during Dialysis Insulin Aspart 1 vial 08/17/19 07:00 08/19/19 07:29 Novolog Vial Sliding Scale - SQ Not Given ACHS [facility] Protocol Insulin Detemir 10 units 08/17/19 22:00 08/18/19 21:22 Levemir Vial SQ 10 unit HS ELIZA Administration Valsartan 160 mg 08/17/19 10:00 08/18/19 12:27 Diovan - PO 160 mg DAILY ELIZA Administration ASSESSMENT/PLAN: 53M with PMH of T1DM, ESRD, [place] (s/p cardiac catheterization in 07/30). He presented to the ER on 08/16 with confusion, chest pain and SOB for 1 day. He was admitted for management of suspected DKA after he was found to have POC Glucose of 396 and an AG of 17. on 08/18 he was found to have repeatedly low BG (under 50) despite administration of 2 amps dextrose, and was admitted to the ICU for critical monitoring. #Neuro - AAOx3, alert, talkative - CT Head: No acute pathology noted #Respiratory - Currently not complaining of any SOB - CXR 08/16: Minimal platelike atelectasis at left base - Maintain SpO2 >90% #CVS - EKG: NSR with non specific ST and T wave changes - Trop 0.02 -> 0.04 -> 0.05 -> 0.03 - Echo 07/30: Normal LV function, mod LVH, mild MR, calcified AoV. - Cardio recs: Contiue Carvedilol 12.5 mg, Aspirin 81 mg, Clopidogrel 75 mg - Hx of HTN: Continue Amlodipine 10 mg, Valsartan 160 mg #Endo - Hx of T1DM and repeated DKA episodes - BGM, Novolog ISS - Hold Levemir 10units at night. - Beta hydroxybutyrate 57.7 on presentation, normalized to 2.7 - HbA1c 9.0 - Endocrine consulted, appreciates recs #Renal - Hx of ESRD - Cr 2.7 -> 3.3 -> 4.7 - UA: 4+ Protein, 3+ Glucose, 1+ Ketones - Renal recs: plan for HD 08/19 #FEN - Diabetic Diet, encourage PO intake #Prophylaxis - Heparin 5000 SQ BID - physical therapy consulted for deconditioning #Dispo - stable for transfer med surg Visit type - Emergency Visit Emergency Visit: Yes ED Registration Date: 08/17/19 Care time: The patient presented to the Emergency Department on the above date and was hospitalized for further evaluation of their emergent condition. - New Patient This patient is new to me today: Yes Date on this admission: 08/19/19 - Critical Care Critical Care patient: Yes Total Critical Care Time (in minutes): 36 Critical Care Statement: The care of this patient involved high complexity decision making to prevent further life threatening deterioration of the patient's condition and/or to evaluate & treat vital organ system(s) failure or risk of failure. ATTENDING PHYSICIAN STATEMENT I saw and evaluated the patient. I reviewed the resident's note and discussed the case with the resident. I agree with the resident's findings and plan as documented. SUBJECTIVE: OBJECTIVE: ASSESSMENT AND PLAN:
[2019-08-19] MEDS: HEPARIN NA (PORCINE) 5,000 UNITS/ML 1ML VIAL SQ SCH ×2 (10:09→21:30)
--- NOTE | 2019-08-19 11:06 | PN ---
Progress Note, Physician Chief Complaint: patient seen and examined in ICU bgm noted varying btw 53-115 to get HD today patient awake alert oriented - Current Medication List Current Medications: Active Medications Amlodipine Besylate (Norvasc -) 10 mg PO DAILY [facility] Last Admin: 08/18/19 12:27 Dose: 10 mg Carvedilol (Coreg -) 12.5 mg PO BID [facility] Last Admin: 08/18/19 21:23 Dose: 12.5 mg Gabapentin (Neurontin -) 100 mg PO DAILY [facility] Last Admin: 08/18/19 12:27 Dose: 100 mg Gabapentin (Neurontin -) 300 mg PO HS [facility] Last Admin: 08/18/19 21:23 Dose: 300 mg Heparin Sodium (Porcine) (Heparin -) 5,000 unit SQ BID [facility] Last Admin: 08/19/19 10:09 Dose: 5,000 unit Heparin Sodium (Porcine) (Heparin -) 1,000 unit IVPUSH ONCE ONE Stop: 08/18/19 13:15 Hydralazine HCl (Apresoline -) 50 mg PO TID [facility] Last Admin: 08/19/19 05:36 Dose: 50 mg Sodium Chloride (Normal Saline -) 250 mls @ 3,000 mls/hr IV PRN PRN PRN Reason: Hypotension during Dialysis Stop: 08/19/19 13:14 Insulin Aspart (Novolog Vial Sliding Scale -) 1 vial SQ ACHS [facility]; Protocol Last Admin: 08/19/19 07:29 Dose: Not Given Valsartan (Diovan -) 160 mg PO DAILY [facility] Last Admin: 08/18/19 12:27 Dose: 160 mg - Objective Vital Signs: Vital Signs Temperature 98.2 F 08/19/19 09:00 Pulse Rate 77 08/19/19 09:00 Respiratory Rate 16 08/19/19 09:00 Blood Pressure 134/89 08/19/19 09:00 O2 Sat by Pulse Oximetry (%) 99 08/19/19 08:37 Constitutional: Yes: Calm Cardiovascular: Yes: Regular Rate and Rhythm, S1, S2 Respiratory: Yes: CTA Bilaterally Gastrointestinal: Yes: Normal Bowel Sounds, Soft Edema: No Neurological: Yes: Alert, Oriented, Loss of Sensation (in LE) Labs: CBC, BMP 08/19/19 06:26 08/19/19 06:26 Problem List - Problems (1) ESRD (end stage renal disease) Assessment/Plan: HD per renal Code(s): N18.6 - END STAGE RENAL DISEASE (2) Hypoglycemia Assessment/Plan: detrose ivf endocrine evaluation bgm q2 hr no insulin for now Code(s): E16.2 - HYPOGLYCEMIA, UNSPECIFIED (3) Neuropathic pain, leg, bilateral Assessment/Plan: gabapentin Code(s): G57.93 - UNSPECIFIED MONONEUROPATHY OF BILATERAL LOWER LIMBS (4) CAD (coronary artery disease) Assessment/Plan: coreg aspirin and plavix Code(s): I25.10 - ATHSCL HEART DISEASE OF [place] CORONARY ARTERY W/O ANG PCTRS (5) HTN (hypertension) Assessment/Plan: norvasc valsartan and hydralazine Code(s): I10 - ESSENTIAL (PRIMARY) HYPERTENSION
[2019-08-19] MEDS ORDERED: HEPARIN NA (PORCINE) 5,000 UNITS/ML 1ML VIAL IVPUSH ONE (11:30)
[2019-08-19] MEDS ORDERED: SODIUM CHLORIDE 250 ML IV PRN (11:33)
--- NOTE | 2019-08-19 11:36 | PN ---
Teaching Attending Note Name of Resident: Nayeli Noyola ATTENDING PHYSICIAN STATEMENT I saw and evaluated the patient. I reviewed the resident's note and discussed the case with the resident. I agree with the resident's findings and plan as documented. SUBJECTIVE: Pt seen and examined in the ICU. Mental status improved. Denies shortness of breath or chest pain. OBJECTIVE: Vital Signs Period Temp Pulse Resp BP Sys/Phipps Pulse Ox Last 24 Hr 98.2 F-98.7 F 62-79 16-20 134-180/86-95 99-100 Intake & Output 08/16/19 08/17/19 08/18/19 08/19/19 23:59 23:59 23:59 23:59 Output Total 1000 Balance -1000 Weight 74.843 kg 74.843 kg Gen: NAD at rest Heart: RRR Lung: decreased breath sounds at the bases Abd: soft, nontender Ext: no edema CBC, BMP 08/19/19 06:26 08/19/19 06:26 Active Medications Amlodipine Besylate (Norvasc -) 10 mg PO DAILY [facility] Last Admin: 08/18/19 12:27 Dose: 10 mg Aspirin (Ecotrin -) 81 mg PO DAILY [facility] Carvedilol (Coreg -) 12.5 mg PO BID [facility] Last Admin: 08/18/19 21:23 Dose: 12.5 mg Clopidogrel Bisulfate (Plavix -) 75 mg PO DAILY [facility] Gabapentin (Neurontin -) 100 mg PO DAILY [facility] Last Admin: 08/18/19 12:27 Dose: 100 mg Gabapentin (Neurontin -) 300 mg PO HS [facility] Last Admin: 08/18/19 21:23 Dose: 300 mg Heparin Sodium (Porcine) (Heparin -) 5,000 unit SQ BID [facility] Last Admin: 08/19/19 10:09 Dose: 5,000 unit Heparin Sodium (Porcine) (Heparin -) 1,000 unit IVPUSH ONCE ONE Stop: 08/18/19 13:15 Hydralazine HCl (Apresoline -) 50 mg PO TID [facility] Last Admin: 08/19/19 05:36 Dose: 50 mg Sodium Chloride (Normal Saline -) 250 mls @ 3,000 mls/hr IV PRN PRN PRN Reason: Hypotension during Dialysis Stop: 08/19/19 13:14 Insulin Aspart (Novolog Vial Sliding Scale -) 1 vial SQ ACHS [facility]; Protocol Last Admin: 08/19/19 07:29 Dose: Not Given Valsartan (Diovan -) 160 mg PO DAILY [facility] Last Admin: 08/18/19 12:27 Dose: 160 mg ASSESSMENT AND PLAN: Hypoglycemia improved ESRD on HD CAD HTN Anemia - monitor off levemir - glucose control - HD per renal - PO as tolerated - DVT prophylaxis - can monitor on floor
--- NOTE | 2019-08-19 13:17 | PN ---
Progress Note, Physician History of Present Illness: Pt seen and examined at bedside. He is tolerating HD. He remains in the ICU. He denies shortness of breath. - Current Medication List Current Medications: Active Medications Amlodipine Besylate (Norvasc -) 10 mg PO DAILY [facility] Last Admin: 08/18/19 12:27 Dose: 10 mg Aspirin (Ecotrin -) 81 mg PO DAILY [facility] Carvedilol (Coreg -) 12.5 mg PO BID [facility] Last Admin: 08/18/19 21:23 Dose: 12.5 mg Clopidogrel Bisulfate (Plavix -) 75 mg PO DAILY [facility] Gabapentin (Neurontin -) 100 mg PO DAILY [facility] Last Admin: 08/18/19 12:27 Dose: 100 mg Gabapentin (Neurontin -) 300 mg PO HS [facility] Last Admin: 08/18/19 21:23 Dose: 300 mg Heparin Sodium (Porcine) (Heparin -) 5,000 unit SQ BID [facility] Last Admin: 08/19/19 10:09 Dose: 5,000 unit Hydralazine HCl (Apresoline -) 50 mg PO TID [facility] Last Admin: 08/19/19 05:36 Dose: 50 mg Insulin Aspart (Novolog Vial Sliding Scale -) 1 vial SQ [facility]; Protocol Last Admin: 08/19/19 07:29 Dose: Not Given Valsartan (Diovan -) 160 mg PO DAILY [facility] Last Admin: 08/18/19 12:27 Dose: 160 mg - Objective Vital Signs: Vital Signs Temperature 98.2 F 08/19/19 11:10 Pulse Rate 85 08/19/19 13:00 Respiratory Rate 12 08/19/19 13:00 Blood Pressure 136/72 08/19/19 13:00 O2 Sat by Pulse Oximetry (%) 99 08/19/19 08:37 Constitutional: Yes: Calm Eyes: Yes: Conjunctiva Clear HENT: Yes: Atraumatic Neck: Yes: Supple Cardiovascular: Yes: S1, S2 Respiratory: Yes: CTA Bilaterally Gastrointestinal: Yes: Soft Genitourinary: Yes: WNL Musculoskeletal: Yes: WNL Edema: No Neurological: Yes: Oriented Psychiatric: Yes: Oriented Labs: CBC, BMP 08/19/19 06:26 08/19/19 06:26 Assessment/Plan Current Medications Generic Name Dose Route Start Last Admin Trade Name Freq PRN Reason Stop Dose Admin Amlodipine Besylate 10 mg 08/17/19 10:00 08/18/19 12:27 Norvasc - PO 10 mg DAILY [facility] Administration Aspirin 81 mg 08/20/19 10:00 Ecotrin - PO DAILY [facility] Carvedilol 12.5 mg 08/17/19 10:00 08/18/19 21:23 Coreg - PO 12.5 mg BID [facility] Administration Clopidogrel Bisulfate 75 mg 08/20/19 10:00 Plavix - PO DAILY [facility] Gabapentin 100 mg 08/17/19 10:00 08/18/19 12:27 Neurontin - PO 100 mg DAILY [facility] Administration Gabapentin 300 mg 08/17/19 22:00 08/18/19 21:23 Neurontin - PO 300 mg HS [facility] Administration Heparin Sodium (Porcine) 5,000 unit 08/17/19 10:00 08/19/19 10:09 Heparin - SQ 5,000 unit BID [facility] Administration Hydralazine HCl 50 mg 08/18/19 15:30 08/19/19 05:36 Apresoline - PO 50 mg TID [facility] Administration Insulin Aspart 1 vial 08/17/19 07:00 08/19/19 07:29 Novolog Vial Sliding Scale - SQ Not Given [facility] Protocol Valsartan 160 mg 08/17/19 10:00 08/18/19 12:27 Diovan - PO 160 mg DAILY [facility] Administration Impression 1. ESRD 2. anemia 3. hypoglycemia 4. htn 5. dm 6. hypokalemia Plan - HD today - 3 k bath - monitor glucose - monitor bp
--- NOTE | 2019-08-19 14:42 | PN ---
Progress Note, Physician Chief Complaint: No chest pain or sob Sinus on tele History of Present Illness: 53 year old male with type 1 DM, HTN, ESrd on HD. He has known CAD, he was admitted for an ACS from 07/12/18 - 07/19/18. He had a cardiac cath at [facility] recently but apparently did not receive a stent. He presents now to the ED with chest burning that radiated to the right side of his neck and to his right arm. Presently he is CP free. The pain occurred during dialysis. Troponins 0.02, 0.04, 0.05. EKG NSR with NSSTTW changes Echocardiogram 07/26/19: Normal LV function Moderate LVH Mild MR Calcified AoV. - Current Medication List Current Medications: Active Medications Amlodipine Besylate (Norvasc -) 10 mg PO DAILY [facility] Last Admin: 08/18/19 12:27 Dose: 10 mg Aspirin (Ecotrin -) 81 mg PO DAILY [facility] Carvedilol (Coreg -) 12.5 mg PO BID [facility] Last Admin: 08/18/19 21:23 Dose: 12.5 mg Clopidogrel Bisulfate (Plavix -) 75 mg PO DAILY [facility] Gabapentin (Neurontin -) 100 mg PO DAILY [facility] Last Admin: 08/18/19 12:27 Dose: 100 mg Gabapentin (Neurontin -) 300 mg PO HS [facility] Last Admin: 08/18/19 21:23 Dose: 300 mg Heparin Sodium (Porcine) (Heparin -) 5,000 unit SQ BID [facility] Last Admin: 08/19/19 10:09 Dose: 5,000 unit Hydralazine HCl (Apresoline -) 50 mg PO TID [facility] Last Admin: 08/19/19 05:36 Dose: 50 mg Insulin Aspart (Novolog Vial Sliding Scale -) 1 vial SQ [facility]; Protocol Last Admin: 08/19/19 07:29 Dose: Not Given Valsartan (Diovan -) 160 mg PO DAILY [facility] Last Admin: 08/18/19 12:27 Dose: 160 mg - Objective Vital Signs: Vital Signs Temperature 98.2 F 08/19/19 11:10 Pulse Rate 85 08/19/19 13:45 Respiratory Rate 18 08/19/19 13:45 Blood Pressure 134/74 08/19/19 13:45 O2 Sat by Pulse Oximetry (%) 99 08/19/19 08:37 Constitutional: Yes: No Distress Neck: Yes: Supple Cardiovascular: Yes: Regular Rate and Rhythm. No: JVD, Murmur Respiratory: Yes: CTA Bilaterally Gastrointestinal: Yes: Soft Edema: LLE: Trace, RLE: Trace Labs: CBC, BMP 08/19/19 06:26 08/19/19 06:26 Assessment/Plan 53 year old male with type 1 DM, HTN, ESrd on HD. He has known CAD, he was admitted for an ACS from 07/12/18 - 07/19/18. He had a cardiac cath at [facility] recently but apparently did not receive a stent. He presents now to the ED with chest burning that radiated to the right side of his neck and to his right arm. Presently he is CP free. The pain occurred during dialysis. Troponins 0.02, 0.04, 0.05. EKG NSR with NSSTTW changes Echocardiogram 07/26/19: Normal LV function Moderate LVH Mild MR Calcified AoV. 1) Chest Pain/CAD Is atypical and may be non cardiac Cardiac Cath at [facility] 07/04/19: R dominant, LM 10%, pLAD 30%, mLAD 50% , LCx 30%, and prox-mid RCA 70%, Ramus small and 60% stenosis No need for ischemia work up at this time Aspirin/plavix/beta ginger Statin if no contraindication 2) HTN Much better controlled today Continue: Amlodipine Besylate 10 mg PO DAILY Valsartan 160 mg PO DAILY 07/24/19 Carvedilol Hydralazine. UE Swelling Had a UE Duplex 08/03/19: There is evidence of acute occlusive superficial vein thrombosis noted in the cephalic vein at the level of the antecubital fossa.
[2019-08-19] MEDS: amLODIPine BESYLATE 10 MG TABLET (FP) PO SCH (14:52)
[2019-08-19] MEDS: GABAPENTIN 100 MG CAPSULE PO SCH (14:52)
[2019-08-19] MEDS: VALSARTAN 160 MG TABLET (UD) PO SCH (14:53)
[2019-08-19] MEDS: CARVEDILOL 12.5 MG TABLET (FP) PO SCH ×2 (14:53→21:30)
[2019-08-19] MEDS: GABAPENTIN 300 MG CAPSULE PO SCH (21:31)
--- NOTE | 2019-08-19 23:32 | CONSULT ---
Consult Consult Specialty:: endocrine Referred by:: monika BARRETT Reason for Consultation:: dm type 1 - History of Present Illness Chief Complaint: high sugars History of Present Illness: 53 y/o man with a significant PMHx of T1DM, diabetic gastroparesis,ESRD (M,W,F) , MS s/p cardiac catheterization (no Stent), bilateral LE Neuropathy, recent hospitalizations for ACS 07/12-07/19, 07/25-07/26,presented for chest pain radiating to his neck/ R-arm with SOB.has had elevated blood sugars. frequent urination,thirst and lower extremity numbness and pain. - Past Medical History Cardio/Vascular: Yes: CAD, HTN, MS Renal/: Yes: Renal Failure, Hemodialysis Endocrine: Yes: Diabetes Mellitus - Alcohol/Substance Use Hx Alcohol Use: No - Smoking History Smoking history: Never smoked Home Medications - Allergies Allergies/Adverse Reactions: Allergies Allergy/AdvReac Type Severity Reaction Status Date / Time No Known Allergies Allergy Verified 08/16/19 21:23 - Home Medications Home Medications: Ambulatory Orders Amlodipine Besylate 10 mg PO DAILY 07/24/19 Aspirin 81 mg PO DAILY 07/24/19 Carvedilol 12.5 mg PO BID 07/24/19 Clopidogrel Bisulfate [Clopidogrel] 75 mg PO DAILY 07/24/19 Famotidine 20 mg PO DAILY 07/24/19 Folic Acid 1 mg PO DAILY 07/24/19 Gabapentin 100 mg PO DAILY 07/24/19 Gabapentin 300 mg PO HS 07/24/19 Insulin Aspart [Novolog] 10 unit SQ HS 07/24/19 Insulin Regular, Human [Humulin R U-500 Kwikpen] unit SQ TID 07/24/19 Sodium Bicarbonate - 1,950 mg PO TID 07/24/19 Valsartan 160 mg PO DAILY 07/24/19 Review of Systems - Review of Systems Constitutional: reports: Lethargy, Weakness Eyes: reports: Blurred Vision HENT: reports: No Symptoms Neck: reports: Decreased ROM, Tenderness Cardiovascular: reports: Shortness of Breath Respiratory: reports: Exercise Intolerance, SOB on Exertion Gastrointestinal: reports: Bloating Genitourinary: reports: Frequency Breasts: reports: No Symptoms Reported Musculoskeletal: reports: Extremity Pain, Muscle Cramps, Muscle Weakness Integumentary: reports: No Symptoms Neurological: reports: Numbness, Weakness Endocrine: reports: Unexplained Weight Loss Physical Exam Vital Signs: Vital Signs Temperature 97.8 F 08/19/19 21:00 Pulse Rate 80 08/19/19 21:00 Respiratory Rate 20 08/19/19 21:00 Blood Pressure 150/75 08/19/19 21:00 O2 Sat by Pulse Oximetry (%) 99 08/19/19 21:00 Constitutional: Yes: Calm Eyes: Yes: EOM Intact HENT: Yes: Normocephalic Neck: Yes: Trachea Midline Cardiovascular: Yes: Regular Rate and Rhythm Respiratory: Yes: CTA Bilaterally Gastrointestinal: Yes: Normal Bowel Sounds ...Rectal Exam: Yes: Deferred Renal/: Yes: WNL Breast(s): Yes: WNL Musculoskeletal: Yes: Muscle Pain, Muscle Weakness Extremities: Yes: Erythema Edema: LLE: Trace, RLE: Trace Integumentary: Yes: WNL Neurological: Yes: Alert, Oriented, Numbness, Weakness Labs: CBC, BMP 08/19/19 06:26 08/19/19 06:26 Problem List - Problems (1) CAD (coronary artery disease) Problems reviewed: Yes Code(s): I25.10 - ATHSCL HEART DISEASE OF [place] CORONARY ARTERY W/O ANG PCTRS (2) Chest pain Code(s): R07.9 - CHEST PAIN, UNSPECIFIED (3) ESRD (end stage renal disease) Code(s): N18.6 - END STAGE RENAL DISEASE (4) Hypoglycemia Code(s): E16.2 - HYPOGLYCEMIA, UNSPECIFIED (5) Neuropathic pain, leg, bilateral Code(s): G57.93 - UNSPECIFIED MONONEUROPATHY OF BILATERAL LOWER LIMBS (6) SOB (shortness of breath) on exertion Code(s): R06.02 - SHORTNESS OF BREATH (7) Uncontrolled diabetes mellitus Code(s): E11.65 - TYPE 2 DIABETES MELLITUS WITH HYPERGLYCEMIA (8) Anemia Code(s): D64.9 - ANEMIA, UNSPECIFIED Qualifiers: Vitamin B12 deficiency anemia type: intrinsic factor deficiency Assessment/Plan Current Active Problems CAD (coronary artery disease) (Acute) Chest pain (Acute) ESRD (end stage renal disease) (Acute) Hypoglycemia (Acute) Neuropathic pain, leg, bilateral (Acute) SOB (shortness of breath) on exertion (Acute) Uncontrolled diabetes mellitus (Acute) Abnormal Lab Results 08/19/19 08/19/19 06:26 06:26 RBC 3.71 L Hgb 11.6 L Hct 33.6 L RDW 18.0 H Monocytes % 11.4 H Eosinophils % 5.4 H Sodium 135 L Potassium 3.2 L Chloride 96 L BUN 22.7 H Creatinine 4.7 H Random Glucose 70 L Calcium 8.4 L AST 14 L Total Protein 5.0 L Albumin 2.6 L Laboratory Results - last 24 hr 08/19/19 08/19/19 08/19/19 01:35 03:40 04:06 WBC RBC Hgb Hct MCV MCH MCHC RDW Plt Count MPV Absolute Neuts (auto) Neutrophils % Lymphocytes % Monocytes % Eosinophils % Basophils % Nucleated RBC % Sodium Potassium Chloride Carbon Dioxide Anion Gap BUN Creatinine Est GFR (CKD-EPI)AfAm Est GFR (CKD-EPI)NonAf POC Glucometer 116 58 83 Random Glucose Calcium Phosphorus Magnesium Total Bilirubin AST ALT Alkaline Phosphatase Total Protein Albumin 08/19/19 08/19/19 08/19/19 05:25 06:26 06:26 WBC 4.7 RBC 3.71 L Hgb 11.6 L Hct 33.6 L MCV 90.4 MCH 31.3 MCHC 34.6 RDW 18.0 H Plt Count 147 MPV 8.7 Absolute Neuts (auto) 3.2 Neutrophils % 67.6 Lymphocytes % 14.8 D Monocytes % 11.4 H Eosinophils % 5.4 H Basophils % 0.8 Nucleated RBC % 0 Sodium 135 L Potassium 3.2 L Chloride 96 L Carbon Dioxide 29 Anion Gap 10 BUN 22.7 H Creatinine 4.7 H Est GFR (CKD-EPI)AfAm 15.05 Est GFR (CKD-EPI)NonAf 12.99 POC Glucometer 96 Random Glucose 70 L Calcium 8.4 L Phosphorus 3.7 Magnesium 2.2 Total Bilirubin 0.3 AST 14 L ALT 15 Alkaline Phosphatase 67 Total Protein 5.0 L Albumin 2.6 L 08/19/19 08/19/19 08/19/19 06:42 07:46 09:20 WBC RBC Hgb Hct MCV MCH MCHC RDW Plt Count MPV Absolute Neuts (auto) Neutrophils % Lymphocytes % Monocytes % Eosinophils % Basophils % Nucleated RBC % Sodium Potassium Chloride Carbon Dioxide Anion Gap BUN Creatinine Est GFR (CKD-EPI)AfAm Est GFR (CKD-EPI)NonAf POC Glucometer 66 116 96 Random Glucose Calcium Phosphorus Magnesium Total Bilirubin AST ALT Alkaline Phosphatase Total Protein Albumin 08/19/19 08/19/19 08/19/19 11:24 13:42 15:10 WBC RBC Hgb Hct MCV MCH MCHC RDW Plt Count MPV Absolute Neuts (auto) Neutrophils % Lymphocytes % Monocytes % Eosinophils % Basophils % Nucleated RBC % Sodium Potassium Chloride Carbon Dioxide Anion Gap BUN Creatinine Est GFR (CKD-EPI)AfAm Est GFR (CKD-EPI)NonAf POC Glucometer 247 230 226 Random Glucose Calcium Phosphorus Magnesium Total Bilirubin AST ALT Alkaline Phosphatase Total Protein Albumin 08/19/19 08/19/19 08/19/19 17:40 21:10 23:16 WBC RBC Hgb Hct MCV MCH MCHC RDW Plt Count MPV Absolute Neuts (auto) Neutrophils % Lymphocytes % Monocytes % Eosinophils % Basophils % Nucleated RBC % Sodium Potassium Chloride Carbon Dioxide Anion Gap BUN Creatinine Est GFR (CKD-EPI)AfAm Est GFR (CKD-EPI)NonAf POC Glucometer 283 111 152 Random Glucose Calcium Phosphorus Magnesium Total Bilirubin AST ALT Alkaline Phosphatase Total Protein Albumin plan: Type 1DM uncontrolled bgm qid novolog scale levemir 18 units am nutrition consult hb a1c cad acs: cardiology evaluation for management of angina lipid panel
[2019-08-20] MEDS: INSULIN (LEVEMIR) 100 UNITS/ML UNITS SQ SCH (06:19)
[2019-08-20] MEDS: hydrALAZINE HCL 50 MG TABLET (FP) PO SCH ×3 (06:19→21:32)
[2019-08-20] MEDS: INSULIN SLIDING SCALE (NOVOLOG) 1 VIAL SQ SCH ×4 (06:20→21:24)
[2019-08-20] MEDS ORDERED: INSULIN (LEVEMIR) 100 UNITS/ML UNITS SQ SCH (07:00)
[2019-08-20 08:45] LABS: HEMATOCRIT 32.2 % (35.4-49); HEMOGLOBIN 10.9 GM/dL (11.7-16.9); MCH 31.1 pg (25.7-33.7); MCHC 33.9 g/dl (32.0-35.9); MEAN CELL VOLUME 91.8 fl (80-96); MEAN PLT VOLUME 8.9 fl (7.5-11.1); PLATELET COUNT 122 K/MM3 (134-434); RDW 18.6 % (11.9-15.9); WHITE BLOOD COUNT 3.6 K/mm3 (4.0-10.0)
[2019-08-20 09:14] LABS: BASO % 1.3 % (0-2.0); EOS % 5.1 % (0-4.5); HEMATOCRIT 32.1 % (35.4-49); HEMOGLOBIN 10.9 GM/dL (11.7-16.9); LYMPH % 19.9 % (8-40); MCH 30.9 pg (25.7-33.7); MCHC 33.8 g/dl (32.0-35.9); MEAN CELL VOLUME 91.5 fl (80-96); MEAN PLT VOLUME 8.7 fl (7.5-11.1); MONO % 12.1 % (3.8-10.2); NEUT % 61.6 % (42.8-82.8); PLATELET COUNT 120 K/MM3 (134-434); RBC 3.51 M/mm3 (4.00-5.60); RDW 18.3 % (11.9-15.9); WHITE BLOOD COUNT 3.6 K/mm3 (4.0-10.0)
[2019-08-20 09:22] LABS: ALBUMIN 2.6 g/dl (3.4-5.0); BILIRUBIN,TOTAL 0.4 mg/dL (0.2-1); BLOOD UREA NITROGEN 14.1 mg/dL (7-18); CALCIUM 8.3 mg/dL (8.5-10.1); CREATININE 3.6 mg/dL (0.55-1.3); MAGNESIUM 2.2 mg/dL (1.8-2.4); PHOSPHOROUS 2.7 mg/dL (2.5-4.9); POTASSIUM 3.8 mmol/L (3.5-5.1)
--- NOTE | 2019-08-20 09:37 | PN ---
Progress Note, Physician - Current Medication List Current Medications: Active Medications Amlodipine Besylate (Norvasc -) 10 mg PO DAILY [facility] Last Admin: 08/19/19 14:52 Dose: 10 mg Aspirin (Ecotrin -) 81 mg PO DAILY [facility] Carvedilol (Coreg -) 12.5 mg PO BID [facility] Last Admin: 08/19/19 21:30 Dose: 12.5 mg Clopidogrel Bisulfate (Plavix -) 75 mg PO DAILY [facility] Gabapentin (Neurontin -) 100 mg PO DAILY [facility] Last Admin: 08/19/19 14:52 Dose: 100 mg Gabapentin (Neurontin -) 300 mg PO HS [facility] Last Admin: 08/19/19 21:31 Dose: 300 mg Heparin Sodium (Porcine) (Heparin -) 5,000 unit SQ BID [facility] Last Admin: 08/19/19 21:30 Dose: 5,000 unit Hydralazine HCl (Apresoline -) 50 mg PO TID [facility] Last Admin: 08/20/19 06:19 Dose: 50 mg Insulin Aspart (Novolog Vial Sliding Scale -) 1 vial SQ ACHS [facility]; Protocol Last Admin: 08/20/19 06:20 Dose: 7 units Insulin Detemir (Levemir Vial) 18 units SQ AM [facility] Last Admin: 08/20/19 06:19 Dose: 18 units Valsartan (Diovan -) 160 mg PO DAILY [facility] Last Admin: 08/19/19 14:53 Dose: 160 mg - Objective Vital Signs: Vital Signs Temperature 98.0 F 08/20/19 06:17 Pulse Rate 76 08/20/19 06:17 Respiratory Rate 20 08/20/19 06:17 Blood Pressure 144/60 08/20/19 06:17 O2 Sat by Pulse Oximetry (%) 99 08/19/19 21:00 Cardiovascular: Yes: S1, S2 Respiratory: Yes: Regular, CTA Bilaterally Gastrointestinal: Yes: Normal Bowel Sounds, Soft Labs: CBC, BMP 08/20/19 08:40 Assessment/Plan - Problems (1) ESRD (end stage renal disease) Assessment/Plan: HD per renal Code(s): N18.6 - END STAGE RENAL DISEASE (2) Hypoglycemia Assessment/Plan: detrose ivf given endocrine evaluation noted on levemir bgm Code(s): E16.2 - HYPOGLYCEMIA, UNSPECIFIED (3) Neuropathic pain, leg, bilateral Assessment/Plan: gabapentin Code(s): G57.93 - UNSPECIFIED MONONEUROPATHY OF BILATERAL LOWER LIMBS (4) CAD (coronary artery disease) Assessment/Plan: coreg aspirin and plavix Code(s): I25.10 - ATHSCL HEART DISEASE OF [place] CORONARY ARTERY W/O ANG PCTRS (5) HTN (hypertension) Assessment/Plan: norvasc valsartan and hydralazine Code(s): I10 - ESSENTIAL (PRIMARY) HYPERTENSION
[2019-08-20 09:44] LABS: ALBUMIN 2.6 g/dl (3.4-5.0); BILIRUBIN,TOTAL 0.4 mg/dL (0.2-1); BLOOD UREA NITROGEN 14.4 mg/dL (7-18); CALCIUM 8.3 mg/dL (8.5-10.1); CREATININE 3.6 mg/dL (0.55-1.3); POTASSIUM 3.8 mmol/L (3.5-5.1); TOT PROT 4.9 g/dl (6.4-8.2)
--- NOTE | 2019-08-20 10:12 | PN ---
Progress Note, Physician History of Present Illness: pt seen and examined today in [facility]. no current complaints. states that yesterday he had episodes of sharp pain L sternum which was on and off for 30 minutes. states that the pain was relieved by pushing the skin over the area and pushing down on the site of pain. this has not recurred since then. no other new complaints or overnight events. - Current Medication List Current Medications: Active Medications Amlodipine Besylate (Norvasc -) 10 mg PO DAILY [facility] Last Admin: 08/19/19 14:52 Dose: 10 mg Aspirin (Ecotrin -) 81 mg PO DAILY [facility] Carvedilol (Coreg -) 12.5 mg PO BID [facility] Last Admin: 08/19/19 21:30 Dose: 12.5 mg Clopidogrel Bisulfate (Plavix -) 75 mg PO DAILY [facility] Gabapentin (Neurontin -) 100 mg PO DAILY [facility] Last Admin: 08/19/19 14:52 Dose: 100 mg Gabapentin (Neurontin -) 300 mg PO HS [facility] Last Admin: 08/19/19 21:31 Dose: 300 mg Heparin Sodium (Porcine) (Heparin -) 5,000 unit SQ BID [facility] Last Admin: 08/19/19 21:30 Dose: 5,000 unit Hydralazine HCl (Apresoline -) 50 mg PO TID [facility] Last Admin: 08/20/19 06:19 Dose: 50 mg Insulin Aspart (Novolog Vial Sliding Scale -) 1 vial SQ ACHS [facility]; Protocol Last Admin: 08/20/19 06:20 Dose: 7 units Insulin Detemir (Levemir Vial) 18 units SQ AM [facility] Last Admin: 08/20/19 06:19 Dose: 18 units Valsartan (Diovan -) 160 mg PO DAILY [facility] Last Admin: 08/19/19 14:53 Dose: 160 mg - Objective Vital Signs: Vital Signs Temperature 98 F 08/20/19 09:46 Pulse Rate 78 08/20/19 09:46 Respiratory Rate 20 08/20/19 09:46 Blood Pressure 140/62 08/20/19 09:46 O2 Sat by Pulse Oximetry (%) 99 08/19/19 21:00 Constitutional: Yes: No Distress, Calm Eyes: Yes: Conjunctiva Clear, EOM Intact HENT: Yes: Atraumatic, Normocephalic Neck: Yes: Supple, Trachea Midline Cardiovascular: Yes: Regular Rate and Rhythm, S1, S2. No: Bradycardia, Tachycardia, Pulse Irregular, Bruit, JVD, Gallop, Murmur, Rub, S3, S4, Varicosities Respiratory: Yes: Regular, CTA Bilaterally. No: Rales, Rhonchi, SOB, Wheezes Gastrointestinal: Yes: Normal Bowel Sounds, Soft. No: Distention, Tenderness Musculoskeletal: Yes: WNL Extremities: Yes: WNL Edema: No Peripheral Pulses WNL: Yes Peripheral Pulses: Left Doralis Pedis: 2+, Right Dorsalis Pedis: 2+ Neurological: Yes: Alert, Oriented Psychiatric: Yes: Alert, Oriented Labs: CBC, BMP 08/20/19 08:40 08/20/19 08:40 - ....Imaging Chest X-ray: Report Reviewed, Image Reviewed EKG: Report Reviewed, Image Reviewed Other: Report Reviewed, Image Reviewed Assessment/Plan 53 year old male with type 1 DM, HTN, ESrd on HD. He has known CAD, he was admitted for an ACS from 07/12/18 - 07/19/18. He had a cardiac cath at [facility] (formerly [facility]3] recently but apparently did not receive a stent. He presents now to the ED with chest burning that radiated to the right side of his neck and to his right arm. Presently he is CP free. The pain occurred during dialysis. Troponins 0.02, 0.04, 0.05. EKG NSR with NSSTTW changes Echocardiogram 07/26/19: Normal LV function Moderate LVH Mild MR Calcified AoV. Chest Pain/CAD -known CAD with recent Cardiac cath at [facility] 07/04/19: R dominant, LM 10%, pLAD 30%, mLAD 50%, LCx 30%, and prox-mid RCA 70%, Ramus small and 60% stenosis -no PCI was performed -current pain is atypical and likely non-cardiac -No need for ischemia work up at this time -Aspirin/plavix/beta ginger -Statin if no contraindication -no additional inpatient cardiac work up is needed at this time. -pt recently moved here from [place], needs to establish regular outpatient care for close follow up and aggressive medical management of his known CAD HTN-improved, adequately controlled currently -cont current medical regimen -close outpatient fup. Will see as needed. Please call with any additional questions.
[2019-08-20] MEDS: VALSARTAN 160 MG TABLET (UD) PO SCH (10:24)
[2019-08-20] MEDS: CARVEDILOL 12.5 MG TABLET (FP) PO SCH ×2 (10:24→21:32)
[2019-08-20] MEDS: GABAPENTIN 100 MG CAPSULE PO SCH (10:24)
[2019-08-20] MEDS: HEPARIN NA (PORCINE) 5,000 UNITS/ML 1ML VIAL SQ SCH ×2 (10:24→21:25)
[2019-08-20] MEDS: CLOPIDOGREL BISULFATE 75 MG TABLET (FP) PO SCH (10:24)
[2019-08-20] MEDS: ASPIRIN COATED 81 MG TABLET.EC PO SCH (10:24)
[2019-08-20] MEDS: amLODIPine BESYLATE 10 MG TABLET (FP) PO SCH (10:24)
[2019-08-20] MEDS ORDERED: SODIUM CHLORIDE 250 ML IV PRN (16:48)
--- NOTE | 2019-08-20 16:48 | PN ---
Progress Note, Physician History of Present Illness: Pt seen and examined. No new events. - Current Medication List Current Medications: Active Medications Amlodipine Besylate (Norvasc -) 10 mg PO DAILY [facility] Last Admin: 08/20/19 10:24 Dose: 10 mg Aspirin (Ecotrin -) 81 mg PO DAILY [facility] Last Admin: 08/20/19 10:24 Dose: 81 mg Carvedilol (Coreg -) 12.5 mg PO BID [facility] Last Admin: 08/20/19 10:24 Dose: 12.5 mg Clopidogrel Bisulfate (Plavix -) 75 mg PO DAILY [facility] Last Admin: 08/20/19 10:24 Dose: 75 mg Gabapentin (Neurontin -) 100 mg PO DAILY [facility] Last Admin: 08/20/19 10:24 Dose: 100 mg Gabapentin (Neurontin -) 300 mg PO HS [facility] Last Admin: 08/19/19 21:31 Dose: 300 mg Heparin Sodium (Porcine) (Heparin -) 5,000 unit SQ BID [facility] Last Admin: 08/20/19 10:24 Dose: 5,000 unit Hydralazine HCl (Apresoline -) 50 mg PO TID [facility] Last Admin: 08/20/19 13:50 Dose: 50 mg Insulin Aspart (Novolog Vial Sliding Scale -) 1 vial SQ ACHS [facility]; Protocol Last Admin: 08/20/19 11:32 Dose: 4 units Insulin Detemir (Levemir Vial) 18 units SQ AM [facility] Last Admin: 08/20/19 06:19 Dose: 18 units Valsartan (Diovan -) 160 mg PO DAILY [facility] Last Admin: 08/20/19 10:24 Dose: 160 mg - Objective Vital Signs: Vital Signs Temperature 98.0 F 08/20/19 14:16 Pulse Rate 75 08/20/19 14:16 Respiratory Rate 20 08/20/19 09:46 Blood Pressure 104/60 08/20/19 14:16 O2 Sat by Pulse Oximetry (%) 99 08/20/19 09:00 Constitutional: Yes: Calm Eyes: Yes: Conjunctiva Clear HENT: Yes: Atraumatic Neck: Yes: Supple Cardiovascular: Yes: S1, S2 Respiratory: Yes: CTA Bilaterally Gastrointestinal: Yes: Soft Genitourinary: Yes: WNL Musculoskeletal: Yes: WNL Edema: LLE: Trace, RLE: Trace Neurological: Yes: Oriented Psychiatric: Yes: Oriented Labs: CBC, BMP 08/20/19 08:40 08/20/19 08:40 Assessment/Plan Current Medications Generic Name Dose Route Start Last Admin Trade Name Jairo PRN Reason Stop Dose Admin Amlodipine Besylate 10 mg 08/17/19 10:00 08/20/19 10:24 Norvasc - PO 10 mg DAILY [facility] Administration Aspirin 81 mg 08/20/19 10:00 08/20/19 10:24 Ecotrin - PO 81 mg DAILY [facility] Administration Carvedilol 12.5 mg 08/17/19 10:00 08/20/19 10:24 Coreg - PO 12.5 mg BID [facility] Administration Clopidogrel Bisulfate 75 mg 08/20/19 10:00 08/20/19 10:24 Plavix - PO 75 mg DAILY [facility] Administration Gabapentin 100 mg 08/17/19 10:00 08/20/19 10:24 Neurontin - PO 100 mg DAILY [facility] Administration Gabapentin 300 mg 08/17/19 22:00 08/19/19 21:31 Neurontin - PO 300 mg HS [facility] Administration Heparin Sodium (Porcine) 5,000 unit 08/17/19 10:00 08/20/19 10:24 Heparin - SQ 5,000 unit BID [facility] Administration Hydralazine HCl 50 mg 08/18/19 15:30 08/20/19 13:50 Apresoline - PO 50 mg TID [facility] Administration Insulin Aspart 1 vial 08/20/19 07:00 08/20/19 11:32 Novolog Vial Sliding Scale - SQ 4 units ACHS [facility] Administration Protocol Insulin Detemir 18 units 08/20/19 07:00 08/20/19 06:19 Levemir Vial SQ 18 units AM [facility] Administration Valsartan 160 mg 08/17/19 10:00 08/20/19 10:24 Diovan - PO 160 mg DAILY [facility] Administration Impression 1. ESRD 2. anemia 3. hypoglycemia 4. htn 5. dm 6. hypokalemia Plan - HD tomorrow - will use 3 k bath - cardio input appreciated - mental status improving - monitor glucose - monitor bp
[2019-08-20] MEDS ORDERED: INSULIN (NOVOLOG) ASPART 100 UNITS/ML 10ML VIAL ONE (20:59)
[2019-08-20] MEDS: GABAPENTIN 300 MG CAPSULE PO SCH (21:25)
[2019-08-21] MEDS: hydrALAZINE HCL 50 MG TABLET (FP) PO SCH ×2 (06:14→13:36)
[2019-08-21] MEDS: INSULIN (LEVEMIR) 100 UNITS/ML UNITS SQ SCH (06:15)
[2019-08-21] MEDS: INSULIN SLIDING SCALE (NOVOLOG) 1 VIAL SQ SCH ×3 (06:17→16:50)
--- NOTE | 2019-08-21 11:02 | DS ---
Physical Examination Vital Signs: Vital Signs Temperature 97.8 F 08/21/19 08:25 Pulse Rate 78 08/21/19 10:27 Respiratory Rate 18 08/21/19 10:27 Blood Pressure 117/66 08/21/19 10:27 O2 Sat by Pulse Oximetry (%) 99 08/20/19 21:00 Findings/Remarks: AT HD Constitutional: Yes: No Distress Eyes: Yes: WNL HENT: Yes: WNL Neck: Yes: WNL Cardiovascular: Yes: Regular Rate and Rhythm Respiratory: Yes: WNL Gastrointestinal: Yes: Soft Musculoskeletal: Yes: Muscle Weakness Edema: No Neurological: Yes: WNL, Pre-Existing Deficit Psychiatric: Yes: WNL Labs: CBC, BMP 08/20/19 08:40 08/20/19 08:40 Discharge Summary Problems reviewed: Yes Reason For Visit: CHEST PAIN Current Active Problems CAD (coronary artery disease) (Acute) Chest pain (Acute) ESRD (end stage renal disease) (Acute) Hypoglycemia (Acute) Neuropathic pain, leg, bilateral (Acute) SOB (shortness of breath) on exertion (Acute) Uncontrolled diabetes mellitus (Acute) Procedures: Principal: CXR/LABS/HD HYPOGLYCEMIA Other Procedures: CARDIAC RENAL WORKUP Hospital Course: ADMITTED FOR CHEST PAIN CARDIAC WORKUP DONE NO NEED FOR FOR FURTHER CARDIAC TESTING, AFTER HD CAN GO HOME, MONITOR BGM TID, ENDOCRINE WORKUP APPRECIATED AND INSULIN DOSAGE ADJUSTED Health Concerns: SEE YOUR PRIMARY DOCTOR AND BE COMPLIANT WITH YOUR MEDS AND LIFESTYLE Plan of Treatment: ADMITTED TO ICU AND STABILIZED BGM AND CHEST PAIN Condition: Improved - Instructions Diet, Activity, Other Instructions: SEE YOUR DOCTOR IN 1-2 DAYS Referrals: Nader Melchor MD [Primary Care Provider] - Disposition: VNS/HOME HEALTH CARE - Home Medications Comprehensive Discharge Medication List: Ambulatory Orders Amlodipine Besylate 10 mg PO DAILY 07/24/19 Aspirin 81 mg PO DAILY 07/24/19 Carvedilol 12.5 mg PO BID 07/24/19 Clopidogrel Bisulfate [Clopidogrel] 75 mg PO DAILY 07/24/19 Famotidine 20 mg PO DAILY 07/24/19 Folic Acid 1 mg PO DAILY 07/24/19 Gabapentin 100 mg PO DAILY 07/24/19 Gabapentin 300 mg PO HS 07/24/19 Sodium Bicarbonate - 1,950 mg PO TID 07/24/19 Valsartan 160 mg PO DAILY 07/24/19 Aspirin Coated [Ecotrin -] 81 mg PO DAILY #30 tablet.ec 08/21/19 Clopidogrel Bisulfate [Plavix -] 75 mg PO DAILY #30 tablet 08/21/19 Insulin Detemir [Levemir Flextouch] 100 unit SQ BID #4 insuln.pen 08/21/19 Insulin Regular, Human [Humulin R U-500 Kwikpen] 10 unit SQ TID #4 pack hydrALAZINE HCL [Apresoline -] 50 mg PO TID #90 tablet 08/21/19 Prescription Drug Monitoring Program (I-STOP) results: I-STOP reviewed and issues identified
[2019-08-21] MEDS: ASPIRIN COATED 81 MG TABLET.EC PO SCH (11:58)
[2019-08-21] MEDS: CLOPIDOGREL BISULFATE 75 MG TABLET (FP) PO SCH (11:58)
[2019-08-21] MEDS: VALSARTAN 160 MG TABLET (UD) PO SCH (11:58)
[2019-08-21] MEDS: GABAPENTIN 100 MG CAPSULE PO SCH (11:58)
[2019-08-21] MEDS: amLODIPine BESYLATE 10 MG TABLET (FP) PO SCH (11:58)
[2019-08-21] MEDS: CARVEDILOL 12.5 MG TABLET (FP) PO SCH (11:59)
[2019-08-21] MEDS: HEPARIN NA (PORCINE) 5,000 UNITS/ML 1ML VIAL SQ SCH (11:59)
--- NOTE | 2019-08-21 13:42 | PN ---
Progress Note, Physician History of Present Illness: Pt seen and examined at bedside. He is awake and alert. He tolerated HD. - Current Medication List Current Medications: Active Medications Amlodipine Besylate (Norvasc -) 10 mg PO DAILY [facility] Last Admin: 08/21/19 11:58 Dose: 10 mg Aspirin (Ecotrin -) 81 mg PO DAILY [facility] Last Admin: 08/21/19 11:58 Dose: 81 mg Carvedilol (Coreg -) 12.5 mg PO BID [facility] Last Admin: 08/21/19 11:59 Dose: 12.5 mg Clopidogrel Bisulfate (Plavix -) 75 mg PO DAILY [facility] Last Admin: 08/21/19 11:58 Dose: 75 mg Gabapentin (Neurontin -) 100 mg PO DAILY [facility] Last Admin: 08/21/19 11:58 Dose: 100 mg Gabapentin (Neurontin -) 300 mg PO HS [facility] Last Admin: 08/20/19 21:25 Dose: 300 mg Heparin Sodium (Porcine) (Heparin -) 5,000 unit SQ BID [facility] Last Admin: 08/21/19 11:59 Dose: 5,000 unit Hydralazine HCl (Apresoline -) 50 mg PO TID [facility] Last Admin: 08/21/19 13:36 Dose: 50 mg Sodium Chloride (Normal Saline -) 250 mls @ 3,000 mls/hr IV PRN PRN PRN Reason: Hypotension during Dialysis Stop: 08/21/19 16:48 Insulin Aspart (Novolog Vial Sliding Scale -) 1 vial SQ [facility]; Protocol Last Admin: 08/21/19 11:58 Dose: Not Given Insulin Detemir (Levemir Vial) 18 units SQ AM [facility] Last Admin: 08/21/19 06:15 Dose: 18 units Valsartan (Diovan -) 160 mg PO DAILY [facility] Last Admin: 08/21/19 11:58 Dose: 160 mg - Objective Vital Signs: Vital Signs Temperature 97.6 F 08/21/19 11:54 Pulse Rate 79 08/21/19 12:00 Respiratory Rate 18 08/21/19 12:00 Blood Pressure 139/81 08/21/19 12:00 O2 Sat by Pulse Oximetry (%) 99 08/20/19 21:00 Constitutional: Yes: Calm Eyes: Yes: Conjunctiva Clear HENT: Yes: Atraumatic Neck: Yes: Supple Cardiovascular: Yes: S1, S2 Respiratory: Yes: CTA Bilaterally Gastrointestinal: Yes: Soft Genitourinary: Yes: WNL Musculoskeletal: Yes: WNL Edema: No Neurological: Yes: Oriented Psychiatric: Yes: Oriented Labs: CBC, BMP 08/20/19 08:40 08/20/19 08:40 Problem List - Problems (1) CAD (coronary artery disease) Code(s): I25.10 - ATHSCL HEART DISEASE OF [place] CORONARY ARTERY W/O ANG PCTRS (2) ESRD (end stage renal disease) Code(s): N18.6 - END STAGE RENAL DISEASE Assessment/Plan Current Medications Generic Name Dose Route Start Last Admin Trade Name Freq PRN Reason Stop Dose Admin Amlodipine Besylate 10 mg 08/17/19 10:00 08/21/19 11:58 Norvasc - PO 10 mg DAILY [facility] Administration Aspirin 81 mg 08/20/19 10:00 08/21/19 11:58 Ecotrin - PO 81 mg DAILY [facility] Administration Carvedilol 12.5 mg 08/17/19 10:00 08/21/19 11:59 Coreg - PO 12.5 mg BID [facility] Administration Clopidogrel Bisulfate 75 mg 08/20/19 10:00 08/21/19 11:58 Plavix - PO 75 mg DAILY [facility] Administration Gabapentin 100 mg 08/17/19 10:00 08/21/19 11:58 Neurontin - PO 100 mg DAILY [facility] Administration Gabapentin 300 mg 08/17/19 22:00 08/20/19 21:25 Neurontin - PO 300 mg HS [facility] Administration Heparin Sodium (Porcine) 5,000 unit 08/17/19 10:00 08/21/19 11:59 Heparin - SQ 5,000 unit BID [facility] Administration Hydralazine HCl 50 mg 08/18/19 15:30 08/21/19 13:36 Apresoline - PO 50 mg TID [facility] Administration Sodium Chloride 250 mls @ 3,000 mls/hr 08/20/19 16:48 Normal Saline - IV 08/21/19 16:48 PRN PRN Hypotension during Dialysis Insulin Aspart 1 vial 08/20/19 07:00 08/21/19 11:58 Novolog Vial Sliding Scale - SQ Not Given ACHS [facility] Protocol Insulin Detemir 18 units 08/20/19 07:00 08/21/19 06:15 Levemir Vial SQ 18 units AM [facility] Administration Valsartan 160 mg 08/17/19 10:00 08/21/19 11:58 Diovan - PO 160 mg DAILY [facility] Administration Impression 1. ESRD 2. anemia 3. hypoglycemia 4. htn 5. dm 6. hypokalemia Plan - HD today - cardio input appreciated - mental status improved - monitor glucose - monitor bp
[2019-08-21 15:46] VITALS: BP 138/76; PULSE 82; TEMP 97.8
== END 2019-08-21 19:27 | disposition home health service (06) | DRG 198 ==
LOC: JER 21:11 → JERBED 08-17 00:46 → JICU 08-18 14:21 → J6S 08-19 16:49
PROVIDERS: ADMIT Internal Medicine; ATTEND Family Medicine
PROC: 5A1D70Z Performance of Urinary Filtration, Intermittent, Less than 6 Hours Per Day (ICD-10-PCS; principal; 2019-08-21)
PROC: 5A1D70Z Performance of Urinary Filtration, Intermittent, Less than 6 Hours Per Day (ICD-10-PCS; 2019-08-21)
DX: I25.10 Atherosclerotic heart disease of native coronary artery without angina pectoris (principal); E10.649 Type 1 diabetes mellitus with hypoglycemia without coma; R06.02 Shortness of breath; D64.9 Anemia, unspecified; I12.0 Hypertensive chronic kidney disease with stage 5 chronic kidney disease or end stage renal disease; N18.6 End stage renal disease; K31.84 Gastroparesis; I25.2 Old myocardial infarction; J98.11 Atelectasis; E10.65 Type 1 diabetes mellitus with hyperglycemia; E87.3 Alkalosis; E87.6 Hypokalemia; E10.43 Type 1 diabetes mellitus with diabetic autonomic (poly)neuropathy; E10.40 Type 1 diabetes mellitus with diabetic neuropathy, unspecified; E10.22 Type 1 diabetes mellitus with diabetic chronic kidney disease; Z79.4 Long term (current) use of insulin
CPT/HCPCS: 36415; 70450-TC; 71045-TC-FY; 80048; 80053; 81003; 82010; 82140; 82550; 82803; 82962; 83036; 83735; 84100; 84484; 85025; 85027; 87040; 87086; 93005; 93010; 97116-GP; 97162-GP; 99285-25; J1644